=== PATIENT | male | born 1955 | race Caucasian/White ===

== ENCOUNTER 2024-11-06 05:09 | Inpatient (IN) | payer BC, MEDICARE, SELFPAY ==
[2024-11-06] VITALS (66 sets, daily range): BP systolic 115–184; BP diastolic 72–125; PULSE 60–104; RESP 12–49; TEMP 36.1–37.1; O2SAT 87–100; BMI 29.3
--- OUTSIDE RECORDS SUMMARY | 2024-11-06 05:12 | XMS_ITS | Clinical Summary ---
Author Organization [facility] Address [address] [place] [address] Care Team Providers Care Creative Designer Name Role Phone Vasyl Cai MD Primary Care Provider [phone] Source Comments You are receiving this document as you are listed as the primary care provider,follow-up provider, or the patient has been referred to you for consultation.This is in compliance with the Medicare and[facility] State [facility] Hospital[facility] EHR Incentive Program,which states Providers who transition their patient to another setting of careor provider of care or refers their patient to another provider of care shouldprovide summary care record for each transition of care or referral. [facility] Allerg[facility] Active Allergy Reactions Criticality Noted Date Comments Lisinopril Cough 10/15/2018 Medications aspirin 81 MG chewable tablet Chew and swallow 1 Tablet (81 mg) by mouth. 07/30/19 14 Active nitroglycerin (NITROSTAT) 0.[address] 1 Tablet (0.4 mg) under tongue. 07/30/19 14 Active mometasone (ELOCON) 0.1 % cream Apply topically daily. Active insulin pen needle (BD PEN NEEDLE CHLOE U/F) 32G X 4 MM Inject 1 Each subcutaneously daily. 100 Each 3 02/07/20 20 Active losartan (COZAAR) 50 MG tablet Take 1 Tablet by mouth daily. 90 Tablet 3 06/06/19 21 Active atorvastatin (LIPITOR) 40 MG tabletIndication s:Type 2 diabetes mellitus with diabetic neuropathy, without long-term current use of insulin (HRC),Essential hypertension (HRC),Dyslipidem ia (high LDL; low HDL) (HRC),Obesity, unspecified obesity severity, unspecified obesity type (HRC) take 1 tablet by mouth one time daily 90 Tablet 3 01/26/20 24 Active metFORMIN XR (GLUCOPHAGE XR) 500 MG 24 hour release tabletIndication s:Type 2 diabetes mellitus with diabetic neuropathy, without long-term current use of insulin (HRC),Essential hypertension (HRC),Dyslipidem ia (high LDL; low HDL) (HRC),Obesity, unspecified obesity severity, unspecified obesity type (HRC) take 2 tablets by mouth twice daily 360 Tablet 3 01/26/20 24 Active CONTOUR NEXT test stripsIndication s:Type 2 diabetes mellitus with diabetic neuropathy, without long-term current use of insulin (HRC),Essential hypertension (HRC),Dyslipidem ia (high LDL; low HDL) (HRC),Obesity, unspecified obesity severity, unspecified obesity type (HRC) Use 1 Each to test 4 times a day. 400 Strip 4 02/02/20 24 Active vitamin B-12 (AKA: CYANOCOBALAMIN) 1000 MCG tablet Take 1 Tablet (1,000 mcg) by mouth. Active gabapentin (NEURONTIN) 100 MG capsule TAKE TWO CAPSULES BY MOUTH DAILY AT BEDTIME NEEDED 180 Capsule 3 04/06/20 24 Active semaglutide (OZEMPIC, 2 MG/DOSE,) 8 MG/3ML SOPN injectionIndicat ions:Type 2 diabetes mellitus with diabetic neuropathy, without long-term current use of insulin (HRC),Essential hypertension (HRC),Dyslipidem ia (high LDL; low HDL) (HRC) INJECT 2MG SUBCUTANEOUSLY ONCE A WEEK. 9 mL 2 07/06/19 25 Active empagliflozin (JARDIANCE) 10 MG tabletIndication s:Type 2 diabetes mellitus with diabetic neuropathy, without long-term current use of insulin (HRC),Essential hypertension (HRC),Dyslipidem ia (high LDL; low HDL) (HRC) Take 1 Tablet (10 mg) by mouth daily. 90 Tablet 3 08/03/19 25 Active glipiZIDE (GLUCOTROL) 10 MG tabletIndication s:Type 2 diabetes mellitus with diabetic neuropathy, without long-term current use of insulin (HRC),Essential hypertension (HRC),Dyslipidem ia (high LDL; low HDL) (HRC) Take 2 tab in the AM and 2 tabs in the PM 360 Tablet 3 08/03/19 25 Active tirzepatide (MOUNJARO) 12.5 MG/0.5ML injection pen Inject 12.5 mg subcutaneously once a week. 6 mL 3 08/03/19 25 Active metoprolol succinate (TOPROL XL) 50 MG 24 hour release tabletIndication s:Type 2 diabetes mellitus with diabetic neuropathy, without long-term current use of insulin (HRC),Essential hypertension (HRC),Dyslipidem ia (high LDL; low HDL) (HRC),Obesity, unspecified obesity severity, unspecified obesity type (HRC) TAKE 1 TABLET BY MOUTH ONE TIME DAILY 90 Tablet 3 10/04/19 25 Active Active Problems Problem Noted Date Diagnosed Date Type 2 diabetes mellitus wit h diabetic neuropathy, unspecified 08/02/2024 Obesity, unspecified obesity severity, unspecified obesity type 04/10/2021 CAD (coronary artery disease) 04/13/2018 T2DM (type 2 diabetes mellitus) 04/13/2018 Essential hypertension 04/13/2018 Dyslipidemia (high LDL; low HDL) 04/13/2018 Tobacco abuse 07/29/2013 Encounters Date Type Department Care Team Description 10/01/2024 Refill [place] [address] Endocr[facility] [place] [address] Palma Toth MBBS Refill (metoprolol succinate (TOPROL XL) 50 MG 24 hour release tablet [Pharmacy Med Name: Metoprolol Succinate ER Oral Tablet Extended Release 24 Hour 50 MG]) from Last 3 Months Social History Tobacco Use Types Packs/Day Years Used Date Smoking Tobacco: Former Smokeless Tobacco: Never Alcohol Use Standard Drinks/Week Comments Not Currently 0 (1 standard drink = 0.6 oz pur e alcohol) Sex and Gender Information Value Date Recorded Sex Assigned at Not on file Legal Sex Male 4:10 AM CDT Gender Identity Not on file Sexual Orientation Not on file Last Filed Vital Signs Vital Sign Reading Time Taken Comments Blood Pressure 145/87 08/02/2024 3:12 PM CDT Pulse 84 08/02/2024 3:12 PM CDT Temperature 36.3 C (97.3 F) 02/05/2005 10:43 AM CDT Respiratory Rate 18 02/05/2005 10:4 3 AM CDT Oxygen Saturation 98% 02/05/2005 10: 43 AM CDT Inhaled Oxygen Concentration - - Weight 105.1 kg (231 lb 11.2 oz) 08/02/2024 3:12 PM CDT Height 181.6 cm (5' 11.5) 08/02/2024 3:12 PM CD T Body Mass Index 31.87 08/02/2024 3:12 PM CDT Plan of Treatment Upcoming Encounters Date Type Department Care Team (Late st Contact Info) Description 01/17/2025 9:15 AM CDT Appointment [facility] [address] [place] [address] Palma Toth MBBS [address] [place], [place] [address] Health Maintenance Due Date Last Done Comments Colon Cancer Screening Plan Due 1957 Diabetes: Eye Exam 1957 Diabetes: Foot Exam 1957 Hep C Screening (Preventive Services) 1955 PSA Screening Discussion 1957 Adult Preventive Visit 1975 Pneumococcal Vaccine 50+ Yrs (1 of 2 - PCV) 1976 DTaP/Tdap/Td Vaccine (2 - Tdap) 10/20/2017 10/21/2007 Abdominal Aortic Aneurysm (AAA) Screening 2022 COVID-19 Vaccine ( season) 2024 09/08/2020, 08/18/2020 Diabetes: HGBA1C 11/02/2024 08/02/2024, 02/2024, 07/28/2023, Additional history exists Influenza Vaccine (Season Ended) 2025 02/27/2020, 06/10/2016, 03/22/2015 Diabetes: Creatinine 08/02/2025 08/02/2024, 07/28/2023, 07/22/2022, Additional history exists Diabetes: Urine Microalbumin 08/02/202503/2025, 07/28/2023, 07/22/2022, Additional history exists Diabetes: Lipid Panel 08/02/2029 08/02/2024 , 07/28/2023, 07/22/2022, Additional history exists RSV Vaccine (1 - 1-dose 75+ series) 2032 Zoster/Shingles Vaccine Completed 04/27/2020, 02/23 HepA Vaccine Aged Out No longer eligi ble based on patient's age to complete this topic HepB Vaccine Aged Out No longer eligi ble based on patient's age to complete this topic Hib Vaccine Aged Out No longer eligi ble based on patient's age to complete this topic IPV (Polio) Vaccine Aged Out No longe r eligible based on patient's age to complete this topic MCV4 Vaccine Aged Out No longer eligi ble based on patient's age to complete this topic Meningococcal B Vaccine Aged Out No l onger eligible based on patient's age to complete this topic Procedures Procedure Name Priority Date/Time Associated Diagnosis Comments ALBUMIN/CREAT RATIO Routine 08/02/2024 3 :49 PM CDT Type 2 diabetes mellitus with diabetic neuropathy, without long-term current use of insulin (HRC) BASIC METABOLIC PANEL Routine 08/02/2024 3:35 PM CDT Type 2 diabetes mellitus with diabetic neuropathy, without long-term current use of insulin (HRC) LIPID PANEL & DIRECT LDL (IF NEEDED) Routine 08/02/2024 3:35 PM CDT Type 2 diabetes mellitus with diabetic neuropathy, without long-term current use of insulin (HRC) HGB A1C Routine 08/02/2024 3:35 PM CDT Type 2 diabetes mellitus with diabetic neuropathy, without long-term current use of insulin (HRC) from Last 3 Months or Most Recently Relevant to Health Maintenance Results * Albumin/Creatinine Ratio,Random Urine (08/02/2024 3:49 PM CDT) Albumin/Creati nine Ratio, Urine, Random 2 <30 mg/g 08/02/2024 5:03 PM CDT [facility] Albumin, Urine, Random 1.7 mg/L 08/02/2024 5:03 PM CDT [facility] Creatinine, Urine, Random 69 >20 mg/dL mg/dL 08/02/2024 5:03 PM T [facility] Urine Non-blood Collection / Unknown 08/02/2024 3:49 PM CDT 08/02/2024 3:49 PM CDT Palma Sauer Janey [facility] Final Res ult Performing Organization Address City/[facility]/ZIP Co de Phone Number [facility] [address] [place] [address] * (ABNORMAL) Lipid Panel and Direct LDL(If Needed) (08/02/2024 3:35 PM CDT) Cholesterol 106 0 - 199 mg/dL 08/02/2024 7:58 PM T [facility] Triglyceride 218(H) <=149 mg/dL 08/02/2024 7:58 PM [facility] HDL Cholesterol 34(L) >=40 mg/dL 7:58 PM [facility] LDL, Calculated 28 <130 mg/dL 7:58 PM [facility] Non HDL Chol, Calculated 72 <=159 mg/dL 08/02/2024 7:58 PM [facility] Cholesterol/HDL Ratio 3.1 <=5.0 08/02/2024 7:58 PM [facility] Hours Fasting 2.0 8 - 12 Hours 08/02/2024 7:58 PM [facility] Blood Venipuncture / Unknown 08/02/2024 3:35 PM CDT 08/02/2024 3:50 PM CDT Palma Sauer Janey [facility] Final Res ult Performing Organization Address City/[facility]/ZIP Co de Phone Number [facility] [address] [place] [address] * (ABNORMAL) Basic Metabolic Panel (08/02/2024 3:35 PM CDT) Sodium 140 136 - 145 mmol/L 08/02/2024 7:58 PM [facility] Potassium 3.9 3.5 - 5.1 mmol/L 08/02/2024 7:58 PM [facility] Chloride 108 98 - 109 mmol/L 08/02/2024 7:58 PM [facility] CO2 21 20 - 29 mmol/L 08/02/2024 7:58 PM [facility] Anion Gap 11 6 - 16 mmol/L 08/02/2024 7:58 PM [facility] Calcium 9.2 8.4 - 10.4 mg/dL 08/02/2024 7:58 PM [facility] BUN 18 7 - 26 mg/dL 08/02/2024 7:58 PM [facility] Creatinine 1.06 0.73 - 1.18 mg/dL 08/02/2024 7:58 PM [facility] Glucose 179(H) 70 - 100 mg/dL 08/02/2024 7:58 PM [facility] Comment:The given reference range is for the fasting state. Non-fasting reference range for glucose is 70 - 180 mg/dL. GFR, Estimated >60 >60 mL/min/1.7 3m2 08/02/2024 7:58 PM [facility] Hours Fasting 2.0 8 - 12 Hours 08/02/2024 7:58 PM [facility] Blood Venipuncture / Unknown 08/02/2024 3:35 PM CDT 08/02/2024 3:50 PM CDT us Palma [facility] Final Res ult [facility] [address] [place] [address], [facility] * (ABNORMAL) Hgb A1C (08/02/2024 3:35 PM CDT) Hemoglobin A1C (Rapid) 7.9(H) <=5.6 % 08/02/2024 4:11 PM T [facility] Estimated Average Glucose (Calc) 180 < 117 mg/dL 08/02/2024 4:11 PM [facility] Comment:Estimated average gl ucose (eAG) converts A1c into glucose units (mg/dL) and estimates average glucose over the past approximately 3 months. The eAG reference interval (<117 mg/dL) corresponds to an A1c of <5.7%. Blood Venipuncture / Unknown 08/02/2024 3:35 PM CDT 08/02/2024 3:50 PM CDT Narrative [facility] - 08/02/2024 4:11 PM CDT For patients not previously diagnosed with diabetes: 5.7-6.4%: Increased risk for diabetes 6.5% and greater: Diagnostic for diabetes For patients diagnosed with diabetes: <8.0%: Goal of therapy for ages 18-75 Clinicians may recommend a higher or lower goal for specific individuals. The test method used for this Hemoglobin A1c result can experience interference from elevated hemoglobin and other hemoglobin variants. In patients with results that do not correlate clinically, contact the lab for further direction. us Pal[facility]_1 Final Res ult [facility] [address] [place] [address], [facility] from Last 3 Months or Most Recently Relevant to Health Maintenance Insurance MEDICARE PART A [facility] [place] [facility] [place] [facility] [place] Care Teams Creative Designer Relationship Specialty Start Date End Date Vasyl Cai MD [address] [place], [place] [id number] PCP - General Family Practice 04/13/18
--- OUTSIDE RECORDS SUMMARY | 2024-11-06 05:12 | XMS_ITS | Encounter Summary ---
Author Organization [facility] Address [address] [place] [address] Care Team Providers Care Mfg Assoc Name Role Phone Vasyl Cai Primary Care Provider + [phone] Homar Stevens MD Unavailable Homar Stevens MD Unavailable [phone] Encounter Details Date Type Department Care Team (Late st Contact Info) Description 10/03/2024 Telephone [facility] [address] [place] [address] Pooja Kenney, RN Social History Tobacco Use Types Packs/Day Years Used Date Smoking Tobacco: Former Cigarettes Q uit: 2013 Smokeless Tobacco: Never Alcohol Use Standard Drinks/Week Comments Yes 0 (1 standard drink = 0.6 oz pur e alcohol) very little PHQ-2 Answer Date Recorded PHQ-2 Score 0 09/15/2023 Adolescent Education Answer Date Record ed Getting School Help Needed Not on file 02/13 Sex and Gender Information Value Date Recorded Sex Assigned at Not on file Legal Sex Male 11:16 AM CDT Gender Identity Not on file Sexual Orientation Not on file documented as of this encounter Plan of Treatment Not on file documented as of this encounter Visit Diagnoses Not on filedocumented in this encounter Care Teams Mfg Assoc Relationship Specialty Start Date End Date Vasyl Cai [address] [address] PCP - General Family Practice 07/31/14 Homar Stevens MD [address] [place] [address] Cardiovascular Disease 06/17/21 Homar Stevens MD [address] [place] [address] Assigned Heart and Vascular Provider 10/15/23 documented as of this encounter
--- OUTSIDE RECORDS SUMMARY | 2024-11-06 05:12 | XMS_ITS | Encounter Summary ---
Author Organization [facility] Address [address] [place] [address] Care Team Providers Care Spinner Open End Name Role Phone Vasyl Cai MD Primary Care Provider [phone] Reason for Visit * Reason Comments Refill metoprolol succinate (TOPROL XL) 50 MG 24 hour release tablet [Pharmacy Med Name: Metoprolol Succinate ER Oral Tablet Extended Release 24 Hour 50 MG] Encounter Details Date Type Department Care Team (Late st Contact Info) Description 10/01/2024 Refill [facility] [address] Endocrinology [address] [place] [address] Silvia Toth MBBS [address] [place] [address] Refill (metoprolol succinate (TOPROL XL) 50 MG 24 hour release tablet [Pharmacy Med Name: Metoprolol Succinate ER Oral Tablet Extended Release 24 Hour 50 MG]) Social History Tobacco Use Types Packs/Day Years [...] on file documented as of this encounter Nursing Notes * Brandy Barboza RN - 10/03/2024 9:00 AM CDT Renewed medication per medication refill standing order. Requested Prescriptions Signed Prescriptions Disp Refills metoprolol succinate (TOPROL XL) 50 MG 24 hour release tablet 90 Tablet 3 Sig: TAKE 1 TABLET BY MOUTH ONE TIME DAILY Authorizing Provider: SILVIA TOTH Ordering User: BRANDY BARBOZA * Lydia Wong - 10/01/2024 5:46 AM CDT metoprolol succinate (TOPROL XL) 50 MG 24 hour release tablet [Pharmacy Med Name: Metoprolol Succinate ER Oral Tablet Extended Release 24 Hour 50 MG] Medication started: 05/20/2019 Last ordered by SILVIA TOTH: 01/11/2024 (264 days ago) QTY: 90, Refills: 2, Sig: take 1 tablet by mouth one time daily (unchanged) -> Refill x 12 months, qty: 90, refills: 3 (until due for an office visit) Last qualifying visit: 08/02/2024 (in ENDOCRINOLOGY) Next scheduled visit: 01/17/2025 (in [facility]) [employer] Embedded Refills, Reference: [id number], 10/01/2024 5:46:55 AM CDT, Pool: PASCUAL PNREFSTEPHANY ([id number]) documented in this encounter Plan of Treatment Upcoming Encounters Date Type Department Care Team (Late st Contact Info) Description 01/17/2025 9:15 AM CDT Appointment [facility] [address] [place] [phone] Silvia Toth, MBBS [address] [place] [address] documented as of this encounter Visit Diagnoses Diagnosis Type 2 diabetes mellitus with diabetic neuropathy, without long-term current use of insulin (HRC) Essential hypertension (HRC) Unspecified essential hypertension Dyslipidemia (high LDL; low HDL) (HRC) Other and unspecified hyperlipidemia Obesity, unspecified obesity severity, unspecified obesity type (HRC) documented in this encounter Care Teams Spinner Open End Relationship Specialty Start Date End Date Vasyl Cai MD [address] [place] [address] PCP - General Family Practice 04/13/18 documented as of this encounter
--- OUTSIDE RECORDS SUMMARY | 2024-11-06 05:12 | XMS_ITS | Clinical Summary ---
Author Organization [email or web address] Address [address] [place] [address] Care Team Providers Care Wood Drilling Machine Operator Name Role Phone Pcp, No Primary Care Provider Unavailabl e Allergies No known active allergies Medications aspirin chewable 81 mg chewable tablet Take 1 tablet by mouth once daily. 0 07/29/2013 Active atorvastatin (LIPITOR) 40 mg tablet Take 1 tablet by mouth at bedtime. 30 tablet 3 07/29/2013 5:42 PM CRM DYNAMICS DEVELOPER 07/29/2013 Active clopidogrel (PLAVIX) 75 mg tablet Take 1 tablet by mouth every morning. Continue plavix for 1 year without interruption. 30 tablet 11 07/29/2013 5:42 PM CRM DYNAMICS DEVELOPER 07/29/2013 Active nitroglycerin (NITROSTAT) 0.[address] 1 tablet under the tongue every 5 minutes if needed for Chest Pain (For chest pain x 3 doses.). 25 tablet 3 07/29/2013 5:42 PM CRM DYNAMICS DEVELOPER 07/29/2013 Active nicotine 21 mg/24 hr (NICODERM; HABITROL) 21 mg/24 hr patch Apply 1 Patch on dry, clean, hairless skin once daily. 42 Patch 0 07/31/2013 Active lisinopril (PRINIVIL; ZESTRIL) 5 mg tablet Take 1 tablet by mouth once daily. 30 tablet 0 10/19/2013 Active metoprolol succinate SR (TOPROL XL) 50 mg Sustained-Relea se tablet Take 1 tablet by mouth once daily. 30 tablet 0 10/19/2013 Active Active Problems Problem Noted Date Diagnosed Date Acute [place] 07/29/2013 Tobacco abuse 07/29/2013 ASTIGMATISM REGULAR 09/17/2005 Presbyopia 09/17/2005 Myopia 09/17/2005 Headache(784.0) 03/20/2000 EXAMINATION, ROUTINE MEDICAL 09/20/1999 Immunizations Immunization Administration Dates Next Due Tdap 10/21/2007 Family History Medical History Relation Name Comments Genetic Other Father with HTN and CAD. No hx of prostate or colon cancer. 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 Not on file Not on file Not on file Obstetrics History Last Filed Vital Signs Vital Sign Reading Time Taken Comments Blood Pressure 128/75 07/31/2013 7:42 AM CDT Pulse 81 07/31/2013 7:42 AM CDT Temperature 36.9 C (98.4 F) 07/31/2013 7:42 AM CDT Respiratory Rate 16 07/31/2013 7:42 AM CDT Oxygen Saturation 98% 07/31/2013 7:42 AM CDT Inhaled Oxygen Concentration - - Weight 114 kg (251 lb 5.2 oz) 07/31/2013 5:18 AM CDT Height 182.9 cm (6') 07/29/2013 12:44 PM CRM DYNAMICS DEVELOPER Body Mass Index 34.09 07/29/2013 12:44 PM CRM DYNAMICS DEVELOPER Plan of Treatment Health Maintenance Due Date Last Done Comments Depression screening for age 12+ 1969 BMI (ht and wt on same day) for age 18+ 1975 Hepatitis C screening for ag e 18-79 1975 Colonoscopy through age 75 2002 Pneumococcal series for age 50+ (1 of 1 - PCV) 2007 Zoster (shingles) series for age 50+ (1 of 2) 2007 Tetanus booster 10/20/2017 10/21/2007 Lipids for age 45-75 07/30/2018 07/30/2013 COVID-19 vaccine series ( season) 2024 Influenza Vaccine (Season Ended) 2025 RSV vaccine for adults or (1 - 1-dose 75+ series) 2032 Tdap Completed 10/21/2007 Hepatitis B series for 19+ Aged Out N o longer eligible based on patient's age to complete this topic Procedures Procedure Name Priority Date/Time Associated Diagnosis Comments LIPID PANEL Early AM 07/30/2013 5:20 AM CRM DYNAMICS DEVELOPER from Last 3 Months or Most Recently Relevant to Health Maintenance Results * (ABNORMAL) LIPID PANEL (07/30/2013 5:20 AM CRM DYNAMICS DEVELOPER) CHOLESTEROL,TOTA L 152 100 - 199 mg/dL [facility] TRIGLYCERIDES 102 <150 mg/dL [facility] HDL CHOLESTEROL 29(L) >40 mg/dL [facility] CHOL/HDL RATIO 5.24(H) <4.50 [facility] NON-HDL CHOLESTEROL 123 Undefined mg/dL [facility] LDL CHOLESTEROL 103 <131 mg/dL [facility] PATIENT STATUS Fasting [facility] Blood specimen (specimen) BLOOD SPECIMEN / Unknown 07/30/2013 5:20 AM CRM DYNAMICS DEVELOPER 07/29/2013 10:01 PM CRM DYNAMICS DEVELOPER Shayla Colin NP CHEMISTRY Final R esult [facility] [place]NAL [address]IP [address] [place] [address] from Last 3 Months or Most Recently Relevant to Health Maintenance Insurance [employer] * Guarantor: MAURICIO PENN Account Type Relation to Patient Date of Phone Billing Address [facility] [place] [address] Advance Directives * Full Code (Latest Code Status on File) Date Activated Date Inactivated Comments 07/29/2013 1:21 PM 07/31/2013 1:06 PM Care Teams Wood Drilling Machine Operator Relationship Specialty Start Date End Date Pcp, No . PCP - General 10/21/07
--- OUTSIDE RECORDS SUMMARY | 2024-11-06 05:12 | XMS_ITS | Encounter Summary ---
Author Organization [facility] Address [facility] [place] [address] Care Team Providers Care Hospitality Intern Name Role Phone Vasyl Cai Primary Care Provider [phone] Homar Stevens MD Unavailable [phone] Homar Stevens MD Unavailable [phone] Reason for Visit * Reason Onset Date Comments Refill Request 10/03/2024 losartan Encounter Details Date Type Department Care Team (Late st Contact Info) Description 10/03/2024 Formerly [facility] Heart [facility] [id number] [place] [address] [address] [place] [address] Homar Stevens MD [address] [facility] [address] [place], [place] [address] Refill Request (losartan) Social History Tobacco Use Types Packs/Day Years Used Date Smoking Tobacco: Former Cigarettes Q uit: 2014 Smokeless Tobacco: Never Alcohol Use Standard Drinks/Week [...] on file documented as of this encounter Miscellaneous Notes * Telephone Encounter - Pooja Kenney, RN - 10/03/2024 10:52 AM CDT [facility] Cardiology Refill Guideline reviewed. Medication meets criteria for refill. documented in this encounter Plan of Treatment Not on file documented as of this encounter Visit Diagnoses Diagnosis Coronary artery disease involving kot[place] coronary artery of kotlik heart without angina pectoris Benign essential hypertension Essential hypertension, benign documented in this encounter Care Teams Hospitality Intern Relationship Specialty Start [place] [address] PCP - General Family Practice 07/31/14 Homar Stevens MD [address] [place] [address] Cardiovascular Disease 06/17/21 Homar Stevens MD [address] [place] [address] Assigned Heart and Vascular Provider 10/15/23 documented as of this encounter
--- OUTSIDE RECORDS SUMMARY | 2024-11-06 05:12 | XMS_ITS | Encounter Summary ---
Author Organization [facility] Address [address] [place] [address] Care Team Providers Care Director Of Financial Aid Name Role Phone None Primary Care Provider Unavailabl Vasyl Seay Primary Care Provider Tad Esquivel MD Unavailable Homar Stevens MD Unavailable [phone] Homar Stevens MD Unavailable [phone] Homar Stevens MD Unavailable [phone] Encounter Details Date Type Department Care Team (Late st Contact Info) Description 09/15/2013 Office Visit-[facility] [address] [address] Homar Stevens MD [address] [place], [place] [id number] [place], [place] [id number] Social History Tobacco Use Types Packs/Day Years Used Date Smoking Tobacco: Never Assessed Sex and Gender Information Value Date Recorded Sex Assigned at Not on file Legal Sex Male 11:16 AM CDT Gender Identity Not on file Sexual Orientation Not on file documented as of this encounter Progress Notes * Homar Stevens MD - 09/16/2013 4:46 PM CDT Progress Note Created by: Homar Stevens MD DATE: 09/15/2013 RODOLFO AMAYA DATE OF : 1955 AGE: [age] years old Referring Physician: VASYL CAI Referring Clinic: [facility] CURRENT DIAGNOSES 1. - CAD, 414.00 2. PTCA, V45.82 ALLERGIES NKDA MEDICATIONS (prior to changes made today) 1. Aspirin Low Dose 81 mg tablet,delayed release (DR/EC), 1 p.o. daily 2. atorvastatin 40 mg tablet, 1 p.o. daily 3. clopidogrel 75 mg tablet, 1 p.o. daily 4. lisinopril 5 mg tablet, 1 p.o. daily 5. metoprolol succinate 50 mg tablet extended release 24 hr, 1 p.o. daily 6. mometasone 0.1 % cream, Take as Directed 7. nicotine 21 mg/24 hr patch 24 hour, Take as Directed 8. Nitrostat 0.4 mg tablet, sublingual, 1 p.o. PRN as Directed CHIEF COMPLAINTS CAD IPL STEMI 07/29/2013. 3 x 15 mm zotarolimus eluting stent nondominant cx. LMCA, LAD no signifcant, dyslipidemia, HTN and smoking history HISTORY OF PRESENT ILLNESS Rodolfo Amaya, a 58-year-old man with coronary artery disease, hypertension, dyslipidemia, a previous smoking history and obesity, was seen today at your request for followup and recommendations regarding long-term management of coronary artery disease. On 07/29/13, Mr. Amaya presented to Dr. Cai's clinic with substernal chest discomfort, dyspneaand diaphoresis. An ECG was performed that was not diagnostic for STEMI at that time, but because of the patient's unstable presentation he was aggressively managed with medical therapy and sent urgently to [facility]. On arrival, the patient developed new EKG changes indicating acute inferoposterior lateral wall ST segment elevation CO. He underwent urgent diagnostic coronary angiography by Dr. Homar Koenig via the right femoral artery. The left main and LAD were angiographically normal. The dominant right coronary had a 40 to 50% midvessel narrowing. The circumflex was anondominant, totally occluded vessel. The circumflex occlusion was treated with implantation of a 3.5 x 15 mm length Zotarolimus-eluting stent. An excellent angiographic result was noted. The patient's troponin peaked at 2.66. A post- procedural echo showed a normal ejection fraction without identifiable regional wall motion abnormality. The patient was placed on appropriate medical therapy including aspirin, Clopidogrel, lisinopril, metoprolol and atorvastatin. Since his discharge, Mr. Amaya has been very carefully followed by Dr. Cai. The patient has undergone cardiac rehabilitation without limits. He is quite eager to return back to work. Close questioning reveals no history of chest, arm, neck, jaw or back discomfort with exertion. has been successful in helping the patient stop smoking cigarettes. The patient has been instructed about a low cholesterol diet, but is focusing primarily on cessation of tobacco use. PAST MEDICAL HISTORY: 1. Hypertension. 2. Moderate obesity. 3. Dyslipidemia. 4. Smoking history. 5. Recent inferoposterior infarction - normal ejection fraction after intervention. A very small troponin rise. PHYSICAL EXAMINATION: Exam today demonstrates a very pleasant, cooperative and friendly [id number] who is overweight. His blood pressure was 118/78. His heart rate is 84. His height is 70. His weight is 255,5. His BMI is 35. His lungs are clear to percussion and auscultation. There is normal S1 with a normal S2. There is no S3. There is no S4. There is no rub or click. His pulses are both symmetrical. There is no edema. LABORATORY STUDIES: I have carefully reviewed the reports from [facility]. The results of the patient's angiogram are in the above text. His echo showed an ejection fraction of 55 to 60% with mild left ventricular hypertrophy, but no identifiable regional wall motion abnormalities. PAST HISTORY Past Medical Illnesses: smokes cigarettes, hypertension, cluster headaches Past Cardiac Illnesses: CO Cardiac/Vasc Procedures-Invasive: cardiac cath (left) Jul 2013 Cardiology Procedures-NonInvasive: echocardiogram Jul 2013 Cardiac Cath Results: July 2013- TOVA to circumflex, mid RCA with 40-50% nonobstructive lesion PMHx Echo Results: July 2013- normal LVSF, trace tricuspid regurgitation, trivial pericardial effusion Left Ventricular Ejection Fraction: EF<GT>55% by Echo -July 2013 EF<GT>55% by Echo -July 2013 FAMILY HISTORY: CARDIAC RISK FACTORS Tobacco Abuse: used to smoke, but quit; Family History of Heart Disease: negative; Hyperlipidemia: positive, controlled; Hypertension: positive, well controlled; Diabetes Mellitus: negative; Prior History of Heart Disease: positive; Obesity:positive, BMI<GT>30 (Obesity); Sedentary Life Style:positive SOCIAL HISTORY Alcohol Use - drinks occasionally; Smoking - used to smoke but quit and 07/29/13; Diet - regular dietand caffeine use-1-2 per day; Lifestyle - , children and drives car; Exercise - participates in cardiac rehab phase II; Seat Belt Use - always; 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 EYES no blurred vision, eye pain, or discharge., wears eye glasses/contact lenses EARS, NOSE, THROAT, MOUTH denies any hearing loss, epistaxis, hoarseness or difficulty speaking. RESPIRATORY denies dyspnea, cough, wheezing or hemoptysis. CARDIOVASCULAR negative for palpitations, chest pain, orthopnea, PND, peripheral edema, syncope or claudication. ABDOMINAL denies ulcer disease, hematochezia or melena. MUSCULOSKELETAL lower back discomfort and legs were stiff - this past weekend NEUROLOGICAL denies any history of recurrent strokes, headaches, TIA, or seizure disorder. PSYCHIATRIC change in mood, getting better ENDOCRINE denies any history of thyroid disease or diabetes mellitus. HEMATOLOGICAL/IMMUNOLOGIC denies any food allergies, seasonal allergies, bleeding disorders. PHYSICAL EXAMINATION VITAL SIGNS: Blood Pressure: 118/78Sitting, Left arm, large cuff Pulse- 84.00/min. Weight- 255.50 lbs. Height- 71.00 BMI Measurement: 35 CONSTITUTIONAL cooperative, alert and oriented,well developed, well nourished, in no acute distress. SKIN warm and dry to touch, no apparent skin lesions, or masses noted. HEAD normocephalic, atraumatic EYES Pupils equal and round, conjunctivae and lids unremarkable, sclera white, no xanthalasma ENT no pallor or cyanosis, dentition good NECK carotid pulses are full and equal bilaterally, JVP normal, no carotid bruit, no thyromegaly CHEST normal symmetry, no tenderness to palpation, normal respiratory excursion, no intercostal retraction, no use of accessory muscles, clear to auscultation and percussion. CARDIAC regular rhythm, S1 normal, S2 normal, No S3 or S4, Apical impulse not displaced, no murmurs, gallops or rubs detected. ABDOMEN abdomen soft, bowel sounds normoactive, no masses, no hepatosplenomegaly, non- tender, no bruits, moderately obese PERIPHERAL PULSES pulses full and equal in all extremities, no bruits auscultated. EXTREMITIES & BACK no deformities, clubbing, cyanosis, erythema or edema observed. There are no spinal abnormalities noted. Normal muscle strength and tone. NEUROLOGICAL no gross motor deficits noted, affect appropriate, oriented to time, person and place. MEDICATIONS UPDATED/STARTED TODAY: Aspirin Low Dose 81 mg tablet,delayed release (DR/EC), 1 p.o. daily, #0 (Zero) atorvastatin 40 mg tablet, 1 p.o. daily, #0 (Zero) clopidogrel 75 mg tablet, 1 p.o. daily, #0 (Zero) lisinopril 5 mg tablet, 1 p.o. daily, #0 (Zero) metoprolol succinate 50 mg tablet extended release 24 hr, 1 p.o. daily, #0 (Zero) mometasone 0.1 % cream, Take as Directed, #0 (Zero) nicotine 21 mg/24 hr patch 24 hour, Take as Directed, #0 (Zero) Nitrostat 0.4 mg tablet, sublingual, 1 p.o. PRN as Directed, #0 (Zero) IMPRESSIONS/PLAN ASSESSMENT: Mr. Amaya is asymptomatic about two months status post small inferoposterior lateral wall myocardial infarction. The patient has a normal ejection fraction and no other significant narrowing. He is free of symptoms. At this point, I believe the patient can return back to full-time work without limitations. I am uncertain whether the DOT would require further testing before returning back to work, but I will certainly be happy to comply with any recommendations that the patient's employers may have. I have asked Rodolfo to please contact the HR service at his work to see whether any further testing would be required. I have given the patient a return to work slip beginning 09/28/13. I have encouraged the patient to remain abstinent from all tobacco use. I have advised a Mediterranean style diet and reviewed its features. I told the patient that he could go to the [employer] web site forfurther details. I have advised a moderate exercise program consisting of about 30 to 40 minutes of aerobic exercisedaily. The patient plans to continue in cardiac rehabilitation. I would continue the patient's Clopidogrel for about one year after his heart attack and then stop.The patient should remain on aspirin, statin therapy and blood pressure medications to maintain a systolic pressure less than 140 long-term. RECOMMENDATIONS: 1. Continue present excellent medical therapy. 2. Continue Clopidogrel through July of 2013. 3. Mediterranean style diet. 4. Exercise program. 5. Continued abstinence from tobacco use. 6. I have given the patient permission to return back to full-time work without restrictions on 09/28/13. Obviously, if the DOT requests more testing, we would be happy to arrange that for the patient. I have asked him to contact me in that regard. 7. Follow up within about one year. We greatly appreciate the opportunity to be involved in the care of this most pleasant man. TODAYS ORDERS 1. Return Visit 1 year Homar Stevens MD documented in this encounter Plan of Treatment Not on file documented as of this encounter Visit Diagnoses Not on filedocumented in this encounter Care Teams Director Of Financial Aid Relationship Specialty Start Date End Date None PCP - General 08/03/13 07/30/14 Vasyl Cai [address] [address] PCP - General Family Practice 07/31/14 Tad Esquivel MD [address] [place] [id number] Assigned Heart and Vascular Provider 03/16/20 07/13/21 Homar Stevens MD [address] [place] [id number] MD Cardiovascular Disease 06/17/21 Homar Stevens MD [address] [place] [id number] Assigned Heart and Vascular Provider 07/14/21 08/06/23 Homar Stevens MD [address] [place] [id number] Assigned Heart and Vascular Provider 10/15/23 documented as of this encounter
--- OUTSIDE RECORDS SUMMARY | 2024-11-06 05:12 | XMS_ITS | Clinical Summary ---
Author Organization [facility] Address [address] [place] [address] Care Team Providers Care Mold Filler And Drainer Name Role Phone Vasyl Cai Primary Care Provider [phone] Homar Stevens MD Unavailable Homar Stevens MD Unavailable Allergies Active Allergy Reactions Criticality Noted Date Comments Lisinopril Cough 06/27/2015 Dry tickle cough Medications aspirin 81 MG tablet Take 81 mg by mouth daily Active metoprolol (TOPROL-XL) 50 MG 24 hr tablet Take 50 mg by mouth daily Active atorvastatin (LIPITOR) 40 MG tablet Take 40 mg by mouth daily Active metFORMIN (GLUCOPHAGE) 500 MG tablet Take 2,000 mg by mouth daily (with dinner) Active glipiZIDE (GLUCOTROL) 10 MG tablet Take 10 mg by mouth 2 times daily (before meals) Active gabapentin (NEURONTIN) 100 MG capsule Take 100 mg by mouth 2 times daily Active OZEMPIC, 1 MG/DOSE, 4 MG/3ML SOPN Inject 1 mg subcutaneously once a week. 06/30/19 22 Active JARDIANCE 10 MG TABS tablet Take 10 mg by mouth daily 11/05/19 21 Active cyanocobalamin (VITAMIN B-12) 1000 MCG tablet Take 1,000 mcg by mouth daily Active nitroGLYcerin (NITROSTAT) 0.4 MG sublingual tabletIndication s:Coronary artery disease involving [place] coronary artery of [place] heart without angina pectoris,Benign essential hypertension Place 1 tablet (0.4 mg) under the tongue every 5 minutes as needed for chest pain 15 tablet 3 09/15/19 24 Active losartan (COZAAR) 25 MG tabletIndication s:Coronary artery disease involving [place] coronary artery of [place] heart without angina pectoris,Benign essential hypertension Take 2 tablets (50 mg) by mouth daily (with breakfast) AND 1 tablet (25 mg) at bedtime. Appointment required for further refills. 270 tablet 10/04/19 25 Active Active Problems Problem Noted Date Diagnosed Date STEMI (ST elevation myocardial infarction) 07/23 CAD (coronary artery disease) Overview (07/21/2014): TOVA to left circ 07/29/13 @[facility] Dyslipidemia HTN (hypertension) Encounters Date Type Department Care Team Description 10/03/2024 Refill [facility] [address] [facility] [address] [place] [address] Homar Stevens MD Refill Request (losartan) 10/03/[address] [facility] [address] [place] [address] [address] [place] [address] Pooja Kenney, RN from Last 3 Months Family History Medical History Relation Comments No Known Problems Brother 1 Accidental No Known Problems Brother 2 Cancer Father leukemia Diabetes Mother No Known Problems Sister 1 Hernia Sister 2 Ovarian Cancer Sister 2 Relation Status Comments Brother 1 Brother 2 Alive Father Mother Sister 1 Alive Sister 2 Alive Social History Tobacco Use Types Packs/Day Years [...] Sign Reading Time Taken Comments Blood Pressure 132/82 09/15/2023 8:13 AM CDT Pulse 82 09/15/2023 8:13 AM CDT Temperature - - Respiratory Rate - - Oxygen Saturation 96% 09/15/2023 8:13 AM CDT Inhaled Oxygen Concentration - - Weight 106.1 kg (234 lb) 09/15/2023 8:13 AM CDT Height 180.3 cm (5' 11) 09/15/2023 8:13 AM CDT Body Mass Index 32.64 09/15/2023 8:13 AM CDT Plan of Treatment Health Maintenance Due Date Last Done Comments ADVANCE CARE PLANNING 1955 ANNUAL REVIEW OF HM ORDERS 1955 CT COLONOGRAPHY 1955 FIT 1955 FLEX SIG 1955 sDNA (Cologuard) 1955 COLONOSCOPY 1967 COLORECTAL CANCER SCREENING 1967 HEPATITIS C SCREENING 1975 PNEUMOCOCCAL VACCINE 50+ YEARS (1 of 2 - PCV) 1976 LUNG CANCER SCREENING 2007 RSV VACCINE (1 - Risk 60-74 years 1-dose series) 2017 DTAP/TDAP/TD VACCINE (2 - Td or Tdap) 10/20/2017 10/21/2007 BMP 11/04/2017 11/04/2016 DIABETES SCREENING 02/06/2020 02/05/2017, 11/04/2016 FALL RISK ASSESSMENT 2022 MEDICARE ANNUAL WELLNESS VISIT 2022 LIPID 07/09/2022 07/09/2021 COVID-19 VACCINE (3 - 2023-2 5 season) 2024 09/08/2020, 08/18/2020 PHQ-2 (once per calendar year) 2024 09/15/2023 INFLUENZA VACCINE (Season Ended) 2025 02/27/2020, 06/10/2016, 03/22/2015 ZOSTER VACCINE Completed 04/27/2020, 02/24/2020 HPV VACCINE Aged Out No longer eligi ble based on patient's age to complete this topic MENINGITIS VACCINE Aged Out No longer eligible based on patient's age to complete this topic Procedures Procedure Name Priority Date/Time Associated Diagnosis Comments LIPID PROFILE Routine 07/09/2021 7:32 AM [employer] Coronary artery disease involving [place] coronary artery of [place] heart without angina pectoris HEMOGLOBIN A1C Routine 02/05/2017 3:05 PM CDT BASIC METABOLIC PANEL Routine 11/04/2016 4:40 PM CDT from Last 3 Months or Most Recently Relevant to Health Maintenance Results * (ABNORMAL) Lipid Profile (07/09/2021 7:32 AM [employer]) Cholesterol 96 <200 mg/dL 07/09/2021 8:38 AM [employer] [facility] Triglycerides 129 <150 mg/dL 07/09/2021 8:38 AM [employer] [facility] Direct Measure HDL 37(L) >=40 mg/dL 2021 8:38 AM [employer] [facility] LDL Cholesterol Calculated 33 <=100 mg/dL 07/09/2021 8:38 AM [employer] [facility] Non HDL Cholesterol 59 <130 mg/dL 07/09/2021 8:38 AM [employer] [facility] Patient Fasting > 8hrs? Yes 07/09/2021 8:38 AM [employer] [facility] Blood STRUCTURE OF LEFT UPPER LIMB / Unknown Venipuncture / Unknown 07/09/2021 7:32 AM [employer] 07/09/2021 7:34 AM [employer] Narrative [facility] - 07/09/2021 8:38 AM [employer] Cholesterol Desirable: <200 mg/dL Triglycerides Normal: Less than 150 mg/dL Borderline High: 150-199 mg/dL High: 200-499 mg/dL Very High: Greater than or equal to 500 mg/dL Direct Measure HDL Female: Greater than or equal to 50 mg/dL Male: Greater than or equal to 40 mg/dL LDL Cholesterol Desirable: <100mg/dL Above Desirable: 100-129 mg/dL Borderline High: 130-159 mg/dL High: 160-189 mg/dL Very High: >= 190 mg/dL Non HDL Cholesterol Desirable: 130 mg/dL Above Desirable: 130-159 mg/dL Borderline High: 160-189 mg/dL High: 190-219 mg/dL Very High: Greater than or equal to 220 mg/dL us Tad Esquivel MD LAB - BLOOD ORDERABLES Final Res ult [facility] [address] Lab (1st floor, no room number) [place] [address], [facility] [phone] * (ABNORMAL) Hemoglobin A1c (02/05/2017 3:05 PM CDT) Hemoglobin A1C 9.1(A) 0 - 5.6 % Blood specimen (specimen) 02/05/2017 3:05 PM CDT us Patient Reported LAB - BLOOD ORDERABLES Final Re sult * (ABNORMAL) Basic metabolic panel (11/04/2016 4:40 PM CDT) Sodium 139 138 - 146 mmol/L Potassium 3.9 3.5 - 4.9 mmol/L Chloride 103 98 - 109 mmol/L Carbon Dioxide mmol/L Anion Gap mmol/L Glucose 205(A) 60 - 115 mg/dL Urea Nitrogen 24 8 - 26 mg/dL Creatinine 1.0 0.6 - 1.3 mg/dL Calcium mg/dL GFR Estimate ml/min/1.7 3m2 GFR Estimate If Black ml/min/1.7 3m2 Blood specimen (specimen) 11/04/2016 4:40 PM CDT Patient Reported LAB - BLOOD ORDERABLES Final Re sult from Last 3 Months or Most Recently Relevant to Health Maintenance Insurance BCBS OUT OF STATE BC OUT OF STATE Care Teams Mold Filler And Drainer Relationship Specialty Start Date End Date Vasyl Cai [address] [address] PCP - General Family Practice 07/31/14 Homar Stevens MD [address] [place] [id number] Cardiovascular Disease 06/17/21 Homar Stevens MD [address] [place] [id number] Assigned Heart and Vascular Provider 10/15/23
--- NOTE | 2024-11-06 05:27 | ED.GENADULT ---
HPI - General Adult General Chief complaint: Abdominal Pain Stated complaint: chest pain Time Seen by Provider: 11/06/24 05:27 History of Present Illness HPI narrative: around 0100 awoke with a burning abd. pain across his entire stomach and feeling lightheaded and nausea, reports similar pain in 2013 when he had a heart attack requiring stents, was sent to [facility] for his heart attack. denies pain in chest, tried and antacid w/o relief. patient was very concerned about the pain because it felt so similar to his heart attack symptoms he had in the past 69-year-old man presenting to the emergency department with concern of a potential heart problem. Woke about 4 hours ago with some nausea and pain across most of the stomach. Was feeling lightheaded as well. These are similar symptoms with prior [place] and so ultimately became concerned and thought he should come to the emergency department to be evaluated. He does continue on a daily low-dose aspirin. He did try an antacid as well as tried to have a bowel movement but he did not feel he do have a bowel movement. Did have a few sips of 7 up hoping to help the stomach early in the morning. No sense of palpitations. Not actually with chest pain. He says the feeling of getting sick was not like he might experience typically with heartburn. Much improved now. Has been having some diarrhea lately. Reviewing records past medical shown coronary artery disease with lateral wall [place] in 2013. Drug-eluting stent in the circumflex. Also with history of diabetes hypertension Related Data Home Medications ?Medication ?Instructions ?Recorded ?Confirmed atorvastatin 40 mg tablet 40 mg PO DAILY 11/06/24 11/06/24 empagliflozin 10 mg tablet 10 mg PO DAILY 11/06/24 11/06/24 (Jardiance) gabapentin 100 mg capsule 200 mg PO HS PRN 11/06/24 11/06/24 glipizide 10 mg tablet 20 mg PO BID 11/06/24 11/06/24 losartan 25 mg tablet 25 - 50 mg PO BID 11/06/24 11/06/24 metformin 500 mg tablet,extended 1,000 mg PO BIDWM 11/06/24 11/06/24 release 24 hr metoprolol succinate 50 mg 50 mg PO DAILY 11/06/24 11/06/24 tablet,extended release 24 hr tirzepatide 12.5 mg/0.5 mL 12.5 mg subcut Q7D 11/06/24 11/06/24 subcutaneous pen injector (Mounjaro) Allergies Allergy/AdvReac Type Severity Reaction Status Date / Time lisinopril Allergy Cough Verified 11/06/24 09:08 Review of Systems Status of ROS: Reports: 6 or more systems reviewed and unremarkable except as noted in History and below PFSH PFS Social History Smoking Status: Former smoker How often do you have a drink containing alcohol: never AUDIT-C Alcohol total score: 0 Non-prescribed substance use: denies use Exam Narrative: Exam Narrative: Pleasant. NAD. Breathing easily. Skin is warm and dry. Well perfused. No extremity edema. Heart in regular rate and rhythm. Abdomen is overweight soft with some mild tenderness to palpation deep in the right lower abdomen. No peritoneal signs. I palpate a soft umbilical hernia. Lungs are clear. Const: Vital Signs, click to edit/add: Vital Signs - 24 hr 11/06/24 05:17 11/06/24 05:25 11/06/24 05:27 Temperature 97.6 F Pulse Rate 85 87 Pulse Rate [Pulse Oximeter] 82 Respiratory Rate 18 16 16 Blood Pressure 170/95 H Blood Pressure [Ri ght Upper Arm] 184/109 H Pulse Oximetry 96 96 99 Oxygen Delivery Me thod Room Air 11/06/24 05:30 11/06/24 05:41 11/06/24 05:43 Temperature Pulse Rate 83 Pulse Rate [Pulse Oximeter] Respiratory Rate 19 14 Blood Pressure 142/82 H Blood Pressure [Ri ght Upper Arm] Pulse Oximetry 100 95 Oxygen Delivery Me thod 11/06/24 05:45 11/06/24 06:00 11/06/24 06:01 Temperature Pulse Rate 78 80 83 Pulse Rate [Pulse Oximeter] Respiratory Rate 18 16 16 Blood Pressure 157/95 H Blood Pressure [Ri ght Upper Arm] Pulse Oximetry 99 98 100 Oxygen Delivery Me thod 11/06/24 06:15 11/06/24 06:16 11/06/24 06:22 Temperature Pulse Rate 82 64 Pulse Rate [Pulse Oximeter] Respiratory Rate 18 21 13 Blood Pressure 129/118 H 172/85 H Blood Pressure [Ri ght Upper Arm] Pulse Oximetry 100 94 97 Oxygen Delivery Me thod 11/06/24 06:42 11/06/24 06:45 11/06/24 07:00 Temperature Pulse Rate 69 75 Pulse Rate [Pulse Oximeter] Respiratory Rate 12 Blood Pressure 160/99 H Blood Pressure [Ri ght Upper Arm] Pulse Oximetry 98 92 95 Oxygen Delivery Me thod 11/06/24 07:02 11/06/24 07:15 11/06/24 07:21 Temperature Pulse Rate 87 81 Pulse Rate [Pulse Oximeter] Respiratory Rate 14 24 Blood Pressure 167/77 H Blood Pressure [Ri ght Upper Arm] Pulse Oximetry 95 97 96 Oxygen Delivery Me thod 11/06/24 07:30 11/06/24 07:42 11/06/24 07:45 Temperature Pulse Rate 81 79 78 Pulse Rate [Pulse Oximeter] Respiratory Rate 19 13 14 Blood Pressure 154/85 H Blood Pressure [Ri ght Upper Arm] Pulse Oximetry 98 95 98 Oxygen Delivery Me thod 11/06/24 08:00 11/06/24 08:02 11/06/24 08:15 Temperature Pulse Rate 60 79 88 Pulse Rate [Pulse Oximeter] Respiratory Rate 20 16 14 Blood Pressure 153/86 H Blood Pressure [Ri ght Upper Arm] Pulse Oximetry 98 94 90 Oxygen Delivery Me thod 11/06/24 08:24 11/06/24 08:30 11/06/24 08:42 Temperature Pulse Rate 95 87 Pulse Rate [Pulse Oximeter] Respiratory Rate 20 15 16 Blood Pressure 152/97 H 138/84 Blood Pressure [Ri ght Upper Arm] Pulse Oximetry 97 97 Oxygen Delivery Me thod 11/06/24 08:45 11/06/24 09:05 11/06/24 09:15 Temperature Pulse Rate 87 88 86 Pulse Rate [Pulse Oximeter] Respiratory Rate 18 Blood Pressure 164/111 H Blood Pressure [Ri ght Upper Arm] Pulse Oximetry 93 94 98 Oxygen Delivery Me thod Documenting provider has reviewed patient's vital signs: yes Course Vital Signs Vital signs: Initial Vital Signs Temperature 97.6 F 11/06/24 05:17 Temperature Source Temporal Artery Scan 11/06/24 05:17 Pulse Rate 82 11/06/24 05:17 Respiratory Rate 18 11/06/24 05:17 Blood Pressure 184/109 H 11/06/24 05:17 Blood Pressure Mean 134 H 11/06/24 05:17 Blood Pressure Position Semi-Fowlers 11/06/24 05:17 Pulse Oximetry 96 11/06/24 05:17 Oxygen Delivery Method Room Air 11/06/24 05:17 Vital Signs Temperature 97.6 F 11/06/24 05:17 Pulse Rate 82 11/06/24 05:17 Respiratory Rate 18 11/06/24 05:17 Blood Pressure 184/109 H 11/06/24 05:17 Pulse Oximetry 96 11/06/24 05:17 Oxygen Delivery Method Room Air 11/06/24 05:17 Temperature 97.6 F 11/06/24 05:17 Pulse Rate 86 11/06/24 09:15 Respiratory Rate 18 11/06/24 09:15 Blood Pressure 164/111 H 11/06/24 09:05 Pulse Oximetry 98 11/06/24 09:15 Oxygen Delivery Method Room Air 11/06/24 05:17 Medications Administered Medications: Discontinued Medications Generic Name Dose Route Start Last Admin Trade Name Freq PRN Reason Stop Dose Admin Sodium Chloride 500 mls @ 1,000 mls/hr 11/06/24 08:13 11/06/24 09:35 0.9 % Sodium Chloride 500 Ml IV 11/06/24 08:42 Infused .Q30M ONE Infusion Medical Decision Making MDM Narrative Medical decision making narrative: Mild abdominal findings. Not sure what to make of this. Certainly concerning that his symptoms are consistent with prior [place]. Would work this up from a cardiac standpoint with that in mind. Initial EKG independently reviewed by me looks to show a PVC complicating interpretation. Rate of 90 in sinus rhythm otherwise. I did ask for repeat EKG. This shows normal sinus rhythm at a rate of 80. Do not appreciate any ischemic changes here. Labs are unremarkable other than a hemoglobin of 20.2. No history noted of polycythemia vera. This hemoglobin is certainly elevated from 2018. Normal white count. Normal troponin Did have escalation in this nausea like symptom which then settled again. Remains with some mild deeper abdominal ache. Repeat troponin and EKG independently reviewed by me are unchanged. On repeat abdominal exam however I think that he does have more right lower quadrant tenderness. Still without peritoneal signs. Still does not feel like he needs anything for treatment and fact he is proposing discharge. Perhaps this is representing diverticulitis or evolving appendicitis. Will be sending through CT scanner at this point. Mr. Kaye is in agreement to proceed. IV contrasted CT of abdomen and pelvis independently reviewed by me does show some inflammatory change with possibly of fluid layer in the area where I might expect the appendix to be. Anticipate appendicitis. Radiology over-read below INDICATION: Right lower quadrant pain, lower abdominal pain. COMPARISON: None. TECHNIQUE: CT of the abdomen and pelvis with intravenous contrast. Multiplanar axial, coronal, and sagittal reformats were reconstructed. Contrast: 105 mL Isovue 370. FINDINGS: Lung bases: Mild basilar atelectasis. Liver: Suspect some degree of hepatic steatosis. There is a well-circumscribed unilocular 1.5 centimeter cyst in segment V. no worrisome liver lesions. Patent hepatic vasculature. Gallbladder and bile ducts: No gallbladder wall thickening or adjacent inflammation. Minimal layering gallstones or hyperdense sludge. No bile duct dilation. Pancreas: Normal. Spleen: Normal. Adrenal glands: Normal. Kidneys: Normal parenchyma. No cyst or solid mass. No calculi. No urinary tract dilation. Urinary bladder: Normal. Pelvis: No cyst or mass. Vessels: Atherosclerosis. Widely patent mesenteric arteries and veins. Bowel: Focal bowel wall thickening and adjacent inflammation at the base of the appendix. At the base of the appendix/cecum there is a 1.0 x 1.4 centimeter hyperdensity. This may be a faintly calcified appendicolith that are hyperenhancing lesion such as a carcinoid is difficult to exclude completely. The distal appendix is fluid-filled with some mild wall thickening proximally but the tip is normal. The maximum appendiceal diameter is about 9 millimeters. No other inflamed bowel. Scattered colonic diverticuli without diverticulitis. Moderate stool burden. Lymph nodes: No adenopathy. Peritoneum: No ascites. Abdominal wall: Fat containing right inguinal hernia. Bones: No fractures. No focal worrisome bone lesions. IMPRESSION: 1. Acute appendicitis. There is a 1.0 x 1.4 centimeter hyperdense abnormality at the origin of the appendix from the cecum. Could be a faintly calcified appendicolith but a hyperenhancing mass also needs to be considered. 2. No perforation or abscess. 3. No adenopathy. 4. No worrisome liver lesions. Please note that all CT scans at this facility use dose modulation, iterative reconstruction, and/or weight-based dosing when appropriate to reduce radiation dose to as low as reasonably achievable. Dictated by Lorie Serna MD @ 11/06/2024 9:16:06 AM Discussed findings in CT imaging with Mr. Kaye and his son and then with our general surgeon on-call. Pending conversation with hospitalist anticipating admission. Would anticipate likely going to the OR this early afternoon. Likely handing off change of shift here. Chest x-ray is pending Medical Records Medical records reviewed: Yes I reviewed the patient's medical records Lab Data Lab results reviewed: Yes I reviewed the patient's lab results Labs: Lab Results 11/06/24 11/06/24 11/06/24 Range/Units 05:20 05:38 07:20 WBC 10.26 (4.50-11.00) K/uL RBC 4.98 (4.30-5.90) m/uL Hgb 20.2 H (13.5-17.5) gm/dL Hct 45.9 (37.0-53.0) % MCV 92 (80-100) fL MCH 41 H (26-34) pg MCHC 44 H (32-36) gm/dL RDW Coeff of Geo 13.5 (11.5-15.5) % Plt Count 236 (140-440) K/uL Neut % (Auto) 79.4 H (42.0-72.0) % Lymph % (Auto) 11.7 L (20-44) % [place] % (Auto) 7.1 (0.0-11.0) % Eos % (Auto) 1.2 (0.0-7.0) % Baso % (Auto) 0.3 (0.0-3.0) % Neut # (Auto) 8.10 H (1.7-7.0) K/uL Lymph # (Auto) 1.20 (0.90-2.90) K/uL [place] # (Auto) 0.70 (0.00-0.90) K/UL Eos # (Auto) 0.12 (0.00-0.50) K/uL Baso # (Auto) 0.03 (0.00-0.30) K/uL Abs Immat Gran (auto) 0.03 (0.00-0.30) K/uL Imm/Tot Granulo (auto) 0.3 % Sodium 141 (135-149) mmol/L Potassium 4.1 (3.6-5.1) mmol/L Chloride 107 (96-114) mmol/L Carbon Dioxide 21 (20-32) mmol/L Anion Gap 13 (7-15) mEq/L BUN 20 (7-30) mg/dL Creatinine 1.0 (0.5-1.5) mg/dL Estimated Creat Clear 78.68 Estimated GFR 82 ml/min Glucose 158 H (60-115) mg/dL Calcium 9.3 (8.4-10.6) mg/dL Total Bilirubin 0.8 (0.1-1.5) mg/dL Direct Bilirubin 0.2 (0.0-0.5) mg/dL AST 34 (12-35) U/L ALT 24 (4-50) U/L Alkaline Phosphatase 70 (40-150) U/L Troponin I < 0.01 (0.01-0.04) ng/mL NT-Pro-B Natriuret Pep 93 (See Note) pg/mL Total Protein 6.9 (6.0-8.3) g/dL Albumin 4.5 (3.3-5.0) g/dL POC Troponin I 0.00 L 0.01 (0.01-0.04) ng/ml Discharge Plan Discharge Clinical Impression: Acute appendicitis, Abdominal pain Patient Disposition: XFER to OR Condition: Stable Follow Up/Referrals: Vasyl Cai MD [Referring, Family Practice]
[2024-11-06 05:59] LABS: Basophils Absolute Auto 0.03 K/uL (0.00-0.30); Basophils Percent Auto 0.3 % (0.0-3.0); Eosinophils Absolute Auto 0.12 K/uL (0.00-0.50); Eosinophils Percent Auto 1.2 % (0.0-7.0); Hematocrit 45.9 % (37.0-53.0); Hemoglobin* 20.2 gm/dL (13.5-17.5); Immature Granulocytes Abs Auto 0.03 K/uL (0.00-0.30); Immature Granulocytes Pct Auto 0.3 %; Lymphocytes Percent Auto 11.7 % (20-44); Mean Corpuscular HGB Conc 44 gm/dL (32-36); Mean Corpuscular Hemoglobin 41 pg (26-34); Mean Corpuscular Volume 92 fL (80-100); Monocytes Percent Auto 7.1 % (0.0-11.0); Neutrophils Percent Auto 79.4 % (42.0-72.0); Platelet Count* 236 K/uL (140-440); RDW Coefficient of Variation % 13.5 % (11.5-15.5); Red Blood Count 4.98 m/uL (4.30-5.90); White Blood Count* 10.26 K/uL (4.50-11.00)
[2024-11-06 06:03] LABS: Slide Review Reflex No
[2024-11-06 06:14] LABS: Albumin* 4.5 g/dL (3.3-5.0); Chloride* 107 mmol/L (96-114); Potassium* 4.1 mmol/L (3.6-5.1); Sodium* 141 mmol/L (135-149)
[2024-11-06 06:17] LABS: Alanine Aminotransferase* 24 U/L (4-50); Alkaline Phosphatase* 70 U/L (40-150); Anion Gap 13 mEq/L (7-15); Aspartate Amino Transferase* 34 U/L (12-35); Bilirubin Direct* 0.2 mg/dL (0.0-0.5); Bilirubin Total* 0.8 mg/dL (0.1-1.5); Blood Urea Nitrogen* 20 mg/dL (7-30); Carbon Dioxide* 21 mmol/L (20-32); Est. Creatinine Clearance* 78.68; Estimated Glomerular Filt Rate 82 ml/min; Total Protein* 6.9 g/dL (6.0-8.3)
[2024-11-06 06:18] LABS: Calcium* 9.3 mg/dL (8.4-10.6); Glucose* 158 mg/dL (60-115)
[2024-11-06 07:24] LABS: NT Pro B Type NatriureticPept* 93 pg/mL (See Note); Troponin I* < 0.01 ng/mL (0.01-0.04)
[2024-11-06 07:41] LABS: Troponin, Point-of-Care* 0.01 ng/ml (0.01-0.04)
--- NOTE | 2024-11-06 08:12 | CRLHL7_ITS ---
For Patients: As a result of the 21st Century Cures Act, medical imaging exams and procedure reports are released immediately into your electronic medical record. You may view this report before your referring provider. If you have questions, please contact your health care provider. INDICATION: Right lower quadrant pain, lower abdominal pain. COMPARISON: None. TECHNIQUE: CT of the abdomen and pelvis with intravenous contrast. Multiplanar axial, coronal, and sagittal reformats were reconstructed. Contrast: 105 mL Isovue 370. FINDINGS: Lung bases: Mild basilar atelectasis. Liver: Suspect some degree of hepatic steatosis. There is a well-circumscribed unilocular 1.5 centimeter cyst in segment V. no worrisome liver lesions. Patent hepatic vasculature. Gallbladder and bile ducts: No gallbladder wall thickening or adjacent inflammation. Minimal layering gallstones or hyperdense sludge. No bile duct dilation. Pancreas: Normal. Spleen: Normal. Adrenal glands: Normal. Kidneys: Normal parenchyma. No cyst or solid mass. No calculi. No urinary tract dilation. Urinary bladder: Normal. Pelvis: No cyst or mass. Vessels: Atherosclerosis. Widely patent mesenteric arteries and veins. Bowel: Focal bowel wall thickening and adjacent inflammation at the base of the appendix. At the base of the appendix/cecum there is a 1.0 x 1.4 centimeter hyperdensity. This may be a faintly calcified appendicolith that are hyperenhancing lesion such as a carcinoid is difficult to exclude completely. The distal appendix is fluid-filled with some mild wall thickening proximally but the tip is normal. The maximum appendiceal diameter is about 9 millimeters. No other inflamed bowel. Scattered colonic diverticuli without diverticulitis. Moderate stool burden. Lymph nodes: No adenopathy. Peritoneum: No ascites. Abdominal wall: Fat containing right inguinal hernia. Bones: No fractures. No focal worrisome bone lesions. IMPRESSION: 1. Acute appendicitis. There is a 1.0 x 1.4 centimeter hyperdense abnormality at the origin of the appendix from the cecum. Could be a faintly calcified appendicolith but a hyperenhancing mass also needs to be considered. 2. No perforation or abscess. 3. No adenopathy. 4. No worrisome liver lesions. Please note that all CT scans at this facility use dose modulation, iterative reconstruction, and/or weight-based dosing when appropriate to reduce radiation dose to as low as reasonably achievable. Dictated by Lorie Serna MD @ 11/06/2024 9:16:06 AM (Electronically Signed)
[2024-11-06] MEDS: 0.9 % SODIUM CHLORIDE 500 ML 500 ML 1000 ML IV (09:08)
--- NOTE | 2024-11-06 10:03 | CRLHL7_ITS ---
For Patients: As a result of the Century Cures Act, medical imaging exams and procedure reports are released immediately into your electronic medical record. You may view this report before your referring provider. If you have questions, please contact your health care provider. INDICATION: Preoperative assessment COMPARISON: None TECHNIQUE: A single view study was obtained as a portable CXR, November 06, 2024 FINDINGS: As discussed below IMPRESSION: Normal cardiac contours. Lungs and pleural spaces appear normal. No acute osseous abnormality. No evidence of active pulmonary disease on this single view portable chest radiograph. Dictated by Maurice Borjas MD @ 11/06/2024 10:49:56 AM (Electronically Signed)
[2024-11-06] MEDS: 0.9 % SODIUM CHLORIDE 1000 ml 1,000 ML IV (10:20)
--- NOTE | 2024-11-06 12:35 | PM.GSHP ---
History of Present Illness History of Present Illness Date Seen: 11/06/24 Chief complaint: chest pain Narrative: Rodolfo Kaye is a 69 year old male presented to emergency room with abdominal pain that started in the middle of the night. Patient's abdominal pain was periumbilical. Patient had ?pain like this when he had a heart attack in 2013? and was worried about having another heart attack. Patient presented to emergency room. He denied any nausea vomiting. He was passing gas. Patient's pain continued but was more in the right lower quadrant. I personally reviewed patient's workup in the emergency room. Patient was found to have normal troponin. EKG was done that showed normal sinus rhythm with no ST elevations. Patient's hemoglobin was found to be 20. His WBC was normal at 10. An abdominal CT was obtained that showed prominent appendix with minimal dilatation. There was also a possible appendicolith at the base of the appendix versus a hyperdensity concerning for a mass at the base of the appendix. No enlarged lymph nodes were identified. He has never had a colonoscopy. Patient states that when his dad had a colonoscopy 40 years ago and patient saw him after the colonoscopy, dad did not want to have repeat colonoscopy and that discouraged the patient to have his own colonoscopy. Patient denies family history of colon cancer or polyps. Review of Systems Narrative: General: no fevers HENT: no problems swallowing CV: no shortness of breath Resp: no cough GI: No nausea, vomiting, abdominal pain : no dysuria, no increased urinary frequency, no hematuria Skin: no new rashes Musculoskeletal: no back pain Neuro: no muscle weakness Psyche: no depression, no anxiety PFSH PFSH Medical History (Updated 11/06/24 @ 12:[address] MD) Heart attack ?I21.9 - Acute myocardial infarction, unspecified (ICD-10) Social History (Updated 11/06/24 @ 12:[address] MD) Narrative: Patient denies smoking and rarely drinks alcohol. 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 Smoking Status: Former smoker How often do you have a drink containing alcohol: never AUDIT-C Alcohol total score: 0 Non-prescribed substance use: denies use Meds Home Medications and Allergies Home Medications ?Medication ?Instructions ?Recorded ?Confirmed ?Type atorvastatin 40 mg tablet 40 mg PO DAILY 11/06/24 11/06/24 History empagliflozin 10 mg tablet 10 mg PO DAILY 11/06/24 11/06/24 History (Jardiance) gabapentin 100 mg capsule 200 mg PO HS PRN 11/06/24 11/06/24 History glipizide 10 mg tablet 20 mg PO BID 11/06/24 11/06/24 History losartan 25 mg tablet 25 - 50 mg PO BID 11/06/24 11/06/24 History metformin 500 mg tablet,extended 1,000 mg PO BIDWM 11/06/24 11/06/24 History release 24 hr metoprolol succinate 50 mg 50 mg PO DAILY 11/06/24 11/06/24 History tablet,extended release 24 hr tirzepatide 12.5 mg/0.5 mL 12.5 mg subcut Q7D 11/06/24 11/06/24 History subcutaneous pen injector (Masonunpriscillaro) Allergies Allergy/AdvReac Type Severity Reaction Status Date / Time lisinopril Allergy Cough Verified 11/06/24 09:08 Exam Narrative: Exam Narrative: General appearance: Alert, cooperative, and in no distress Pulmonary: Chest symmetric, lungs clear bilaterally Cardiovascular Heart: Regular rate and rhythm, S1, S2, no murmurs/rubs/gallops Gastrointestinal Abdominal: soft, protuberant not distended, tender to palpation in the right lower quadrant with rebound tenderness. Skin: Normal skin color, texture, and turgor. No rashes or lesions. Psychiatric: Alert, cooperative, normal affect. Const: Vital Signs, click to edit/add: Vital Signs - 24 hr 11/06/24 05:17 11/06/24 05:25 11/06/24 05:27 Temperature 97.6 F Pulse Rate 85 87 Pulse Rate [Pulse Oximeter] 82 Respiratory Rate 18 16 16 Blood Pressure 170/95 H Blood Pressure [Ri ght Upper Arm] 184/109 H Pulse Oximetry 96 96 99 Oxygen Delivery Me thod Room Air 11/06/24 05:30 11/06/24 05:41 11/06/24 05:43 Temperature Pulse Rate 83 Pulse Rate [Pulse Oximeter] Respiratory Rate 19 14 Blood Pressure 142/82 H Blood Pressure [Ri ght Upper Arm] Pulse Oximetry 100 95 Oxygen Delivery Me thod 11/06/24 05:45 11/06/24 06:00 11/06/24 06:01 Temperature Pulse Rate 78 80 83 Pulse Rate [Pulse Oximeter] Respiratory Rate 18 16 16 Blood Pressure 157/95 H Blood Pressure [Ri ght Upper Arm] Pulse Oximetry 99 98 100 Oxygen Delivery Me thod 11/06/24 06:15 11/06/24 06:16 11/06/24 06:22 Temperature Pulse Rate 82 64 Pulse Rate [Pulse Oximeter] Respiratory Rate 18 21 13 Blood Pressure 129/118 H 172/85 H Blood Pressure [Ri ght Upper Arm] Pulse Oximetry 100 94 97 Oxygen Delivery Me thod 11/06/24 06:42 11/06/24 06:45 11/06/24 07:00 Temperature Pulse Rate 69 75 Pulse Rate [Pulse Oximeter] Respiratory Rate 12 Blood Pressure 160/99 H Blood Pressure [Ri ght Upper Arm] Pulse Oximetry 98 92 95 Oxygen Delivery Me thod 11/06/24 07:02 11/06/24 07:15 11/06/24 07:21 Temperature Pulse Rate 87 81 Pulse Rate [Pulse Oximeter] Respiratory Rate 14 24 Blood Pressure 167/77 H Blood Pressure [Ri ght Upper Arm] Pulse Oximetry 95 97 96 Oxygen Delivery Me thod 11/06/24 07:30 11/06/24 07:42 11/06/24 07:45 Temperature Pulse Rate 81 79 78 Pulse Rate [Pulse Oximeter] Respiratory Rate 19 13 14 Blood Pressure 154/85 H Blood Pressure [Ri ght Upper Arm] Pulse Oximetry 98 95 98 Oxygen Delivery Me thod 11/06/24 08:00 11/06/24 08:02 11/06/24 08:15 Temperature Pulse Rate 60 79 88 Pulse Rate [Pulse Oximeter] Respiratory Rate 20 16 14 Blood Pressure 153/86 H Blood Pressure [Ri ght Upper Arm] Pulse Oximetry 98 94 90 Oxygen Delivery Me thod 11/06/24 08:24 11/06/24 08:30 11/06/24 08:42 Temperature Pulse Rate 95 87 Pulse Rate [Pulse Oximeter] Respiratory Rate 20 15 16 Blood Pressure 152/97 H 138/84 Blood Pressure [Ri ght Upper Arm] Pulse Oximetry 97 97 Oxygen Delivery Me thod 11/06/24 08:45 11/06/24 09:05 11/06/24 09:15 Temperature Pulse Rate 87 88 86 Pulse Rate [Pulse Oximeter] Respiratory Rate 18 Blood Pressure 164/111 H Blood Pressure [Ri ght Upper Arm] Pulse Oximetry 93 94 98 Oxygen Delivery Me thod 11/06/24 09:34 11/06/24 09:35 11/06/24 09:45 Temperature Pulse Rate 93 93 Pulse Rate [Pulse Oximeter] Respiratory Rate 23 19 18 Blood Pressure 143/89 H Blood Pressure [Ri ght Upper Arm] Pulse Oximetry 99 93 Oxygen Delivery Me thod 11/06/24 10:00 11/06/24 10:02 11/06/24 10:15 Temperature Pulse Rate 92 94 98 Pulse Rate [Pulse Oximeter] Respiratory Rate 21 23 27 H Blood Pressure 150/100 H Blood Pressure [Ri ght Upper Arm] Pulse Oximetry 99 98 98 Oxygen Delivery Me thod 11/06/24 10:30 11/06/24 10:45 11/06/24 11:00 Temperature Pulse Rate 98 88 89 Pulse Rate [Pulse Oximeter] Respiratory Rate 19 18 26 H Blood Pressure Blood Pressure [Ri ght Upper Arm] Pulse Oximetry 99 95 97 Oxygen Delivery Me thod 11/06/24 11:02 11/06/24 11:15 11/06/24 11:30 Temperature Pulse Rate 92 92 96 Pulse Rate [Pulse Oximeter] Respiratory Rate 24 26 H 21 Blood Pressure 150/93 H Blood Pressure [Ri ght Upper Arm] Pulse Oximetry 97 98 96 Oxygen Delivery Me thod 11/06/24 11:45 11/06/24 12:00 11/06/24 12:02 Temperature Pulse Rate 90 93 93 Pulse Rate [Pulse Oximeter] Respiratory Rate 19 25 H 49 H Blood Pressure 155/84 H Blood Pressure [Ri ght Upper Arm] Pulse Oximetry 98 96 87 L Oxygen Delivery Me thod 11/06/24 12:15 Temperature Pulse Rate 101 H Pulse Rate [Pulse Oximeter] Respiratory Rate 30 H Blood Pressure Blood Pressure [Ri ght Upper Arm] Pulse Oximetry 99 Oxygen Delivery Me thod Progress Note:A&P Assessment and plan (1) Acute appendicitis: Status: Acute Plan 69-year-old male presents with right lower quadrant abdominal pain that is most likely due to acute appendicitis. I discussed with the patient and his son his laboratory and CT findings. Patient's WBC is normal on today's exam. Abdominal CT shows wall enhancing dilated appendix with small amount of periappendiceal inflammation. This is concerning for acute appendicitis. I also discussed with the patient and his son that there is a hyperintense lesion or mass at the base of the appendix that could be stool versus a mass at the base of the appendix. I recommended to proceed with laparoscopic appendectomy. If patient's appendiceal base is soft and able to be stapled, we will complete laparoscopic appendectomy and patient will need to have colonoscopy in 8 weeks to evaluate the hyper dense mass versus stool. Depending on the pathology of the appendix, I did discuss the need for possible additional procedures. If patient's cecum and base of the appendix is very firm and unable to be addressed with just laparoscopic appendectomy or partial cecectomy, I did discussed with the patient proceeding with right hemicolectomy. Both procedures were discussed in detail. The risks associated procedures including infection, bleeding, anastomotic leak, the need for additional procedures, and cardiopulmonary complications were all discussed with the patient, and he agreed to proceed. Patient's hemoglobin was found to be 20. This is unusual and would need to be followed up and worked up in the future.
[2024-11-06 12:42] LABS: Appearance Urine Clear (Clear); Bilirubin Urine Negative (Negative); Blood Urine Negative (Negative); Color Urine Yellow (Yellow); Glucose Urine 2+ (Negative); Ketones Urine Negative (Negative); Leukocyte Esterase Urine Negative (Negative); Nitrite Urine Negative (Negative); Protein Urine Negative (Negative); Urobilinogen Urine 0.2 (0.2-1.0); pH Urine 5.5 (5.0-8.5)
--- NOTE | 2024-11-06 12:44 | P.GSOP_ITS ---
Operative Note Date of procedure: 11/06/24 Pre-op diagnosis: 1. Acute appendicitis. 2. Hyperdense mass or lesion at the base of the appendix of unknown etiology. Post-op diagnosis: 1. Hyperemic appendix concerning for acute appendicitis. 2. Thickened cecum concerning for mass at the base of the appendix. Type of Procedure: 1. Laparoscopic appendectomy converted to laparoscopic right hemicolectomy. Indications: 69-year-old male presented to emergency room with right lower quadrant abdominal pain. Patient was passing gas and denied nausea vomiting. Patient's workup revealed normal troponin and EKG not concerning for cardiac event. Patient's WBC was 10. An abdominal CT was obtained that showed dilated wall enhancing osei endix with periappendiceal inflammation. There was also a hyperdense lesion or mass at the base of the appendix of unknown etiology. On clinical exam patient had tenderness to palpation in the right lower quadrant with rebound tenderness. Given patient's clinical history and his physical exam, laparoscopic appendectomy and possible need for additional procedures such as right hemicolectomy were discussed with the patient. The procedures were discussed in detail. The risks associated procedure including infection, bleeding, the need for additional procedures, and the need to have repeat procedures in the near future of were all discussed with the patient, and he agreed to proceed. Procedure Description: After discussing the risks and benefits of the procedure, the patient signed informed consent.? The operative site was marked and the patient was brought to the operating room and placed on the operating table in supine position.? Care was taken to pad the patient's pressure points.?? The patient was then intubated by anesthesia.?? The operative site was then prepped and draped in the usual sterile fashion.? A time-out was then performed. A 5-mm laparoscopy port was placed in the left upper quadrant guided by a 5-mm laparoscope placed into a translucent trochar. Passage through the layers of the abdominal wall was visualized with the laparoscope. A pneumoperitoneum was established. A 30-degree 5-mm laparoscope was advanced into the abdomen. The abdomen was briefly surveyed, and there was no evidence of diffuse peritonitis. A 12-mm port and a 5-mm port were placed in the left low quadrant and suprapubically, respectively, under direct visualization by laparoscope. Left upper quadrant entrance port was then examined intraabdominally by placing the camera through the left lower quadrant port and no intraabdominal injury was seen. The patient was placed in Trendelenburg position, allowing the abdominal contents to shift cephalad. The small bowel was moved toward the midline in the abdomen and this allowed for identification of the appendix. Appendix appeared to be hyperemic and the adjacent cecum was also hyperemic. The base of the appendix was palpated and was firm on palpation. That cecal hyperemia extended distal to the ileocecal valve. The cecum was not edematous to explain the thickening at the base of the appendix and the appendix was not very large or edematous to explain the thickening of the base of the appendix. Given patient's CT finding of hyperdense lesion at the base of the appendix and his intraoperative findings, I was concerned for malignancy at the appendiceal base. I decided to proceed with laparoscopic right hemicolectomy. An additional 5 mm port was placed midway between the umbilicus and xiphoid process under direct visualization. The appendix was grasped and retracted medially. The White line of [place] was divided with Harmonic scalpel near the cecum to create the correct retroperitoneal plane.? This dissection was carried along the abdominal wall just beyond the cecum. The terminal ileum was adherent to the peritoneum posterior to the cecum. These peritoneal adhesions were taken down with Harmonic scalpel. During this dissection harmonic scalpel hot blade touched the wall of small intestine at the mesenteric border. This area was marked with a 5 mm clip and later during the open part of the procedure oversewn with 3-0 silk suture to avoid transmural injury. I then proceeded with a medial to lateral dissection. The cecum was grasped and retracted towards the abdominal wall.? The ileocolic vascular pedicle was identified and skeletonized from the mesenteric fat with Harmonic scalpel.? The ileocolic vessels were then stapled with a vascular staple load of Endo-KIMMIE stapler.? No bleeding was seen from the vascular pedicle.? Dissection was then carried towards the liver.? Colonic mesentery was divided with Harmonic scalpel. The right branch of the middle colic artery was identified. This was skeletonized with Harmonic scalpel. This was clipped with 5 mm clips on the patient's side at the base of the branch and with a single clip on the specimen side and divided with Harmonic scalpel. The omentum was adherent to the medial hepatic flexure. These adhesions were taken down with Harmonic scalpel. I then proceeded with laparoscopic mobilization of hepatic flexure. The transverse colon and hepatic flexure were reflected caudad and gastrocolic ligament was divided with the Harmonic scalpel. This dissection was carried towards the lateral abdominal wall in the relatively avascular plane. Unusual scarring was noted between retroperitoneal plane and Gerota's fascia. This was divided with Harmonic scalpel. Duodenum was identified during this dissection and care was taken not to injure it.? When the transverse colon and hepatic flexure were fairly mobile and dissected of retroperitoneum, we then extended our dissection from the hepatic flexure towards the cecum along the lateral abdominal wall.? The right colon was fairly mobile and I proceeded with extracorporeal part of the procedure. The patient was flattened and a supraumbilical vertical surgical incision was made with a scalpel through the 5 mm supraumbilical port incision. Subcutaneous tissues were divided with cautery. Anterior fascia was divided with cautery.? The rectus muscles were retracted laterally and medially. Posterior sheath and peritoneum were grasped and the abdomen was entered with cautery.? The abdomen was then deflated.? The Jono retractor was placed into the incision.? The dissected right colon was exteriorized.? Peritoneal adhesions were still tettering the terminal ileum. Those were lysed with Harmonic scalpel and cautery. Omentum was mobilized off the proximal transverse colon in order to make anastomosis. This was done with Harmonic scalpel. % The distal ascending colon mesentery was still attached to the retroperitoneum. These adhesions were taken down carefully with Harmonic scalpel. During this dissection Harmonic scalpel was thought to be too close to the duodenum, and I was concerned about injury to the duodenum. I elected to place an interrupted 3-0 silk suture to over-sew the area of concern. This was located in the medial second portion of the duodenum. When the right colon and hepatic flexure were mobile, I proceeded with [id number] functional end-to-end anastomosis. Small bowel mesentery in the terminal ileum was divided with clamps and Vicryl ties. A segment of omentum overlying the proximal transverse colon was in the way of anastomosis creation. This was excised with Harmonic scalpel and sent to pathology as omental segment. A blue load of KIMMIE stapler was used to divide the terminal ileum and ascending colon at the level of proximal transverse colon. The transverse colon and distal terminal ileum was then lined up for anastomosis with a stay sutures. Both ends were well perfused.? An enterotomy was made near the staple line with cautery.? A colotomy was also made near the staple line with cautery.? The handles of the KIMMIE stapler were advanced into the small intestine and colon.? The [id number] anastomosis was then made with the 100 blue load of KIMMIE stapler.? The staple line was examined from the inside and no active bleeding was seen.? The common enterotomy was then closed with interrupted 3-0 silk pop-off sutures using Lembert sutures.? A crotch stitch was placed with 3-0 silk suture as well.? The anastomosis was palpated and was patent.? Anastomosis appeared well perfused.? The anastomosis was then placed into the abdomen.? The right colon was opened on the back table and the base of the appendix was thickened with the donut like base of the appendix mass. The right colon was sent to pathology. All the dirty instruments and towels were removed.? The Jono retractor was removed.? The surgeon and assistants changed gloves to new gloves.? We then pr oceeded with abdominal closure. The anterior fascia was then closed with 2 running 0-0 PDS sutures.?The abdomen was then insufflated again.? The anastomosis was examined intra-abdominally.? No bleeding was identified in the surgical field.? The anastomosis appeared to be well perfused.? The abdomen was irrigated and no significant bleeding was noted in the surgical site.? Omentum was placed over the right-sided abdomen and over anastomosis.? The fascia of the left lower quadrant 12 mm port incision was closed with 0-0 Vicryl sutures with Lui-Nash needle under direct visualization. The 5 mm ports were removed under direct visualization and pneumoperitoneum was reduced through a left upper quadrant incision. The dermis of the supraumbilical incision was reapproximated with interrupted 3- 0 Vicryl sutures.? The skin of supraumbilical incision was then closed with itzel. The skin of other laparoscopic incisions was closed with 4-0 Monocryl stitches.? Sterile dressings were placed over the incisions. All counts were correct at the end of the case. Retana catheter was placed under sterile conditions at the end of the case. The patient tolerated this procedure well and was transferred to PACU in stable condition. Findings: Thickened base of the appendix with hyperemic cecum and appendix concerning for a mass. When the right colon was examined and the back table a thickened submucosal mass was noted at the base of the appendix. Anesthesia: GETA Surgeon: Everardo Lane MD Estimated blood loss (mL): 40 Additional Specimen Information: 1. Right colon and omental segment. Condition: stable Disposition: PACU Colon Resection Operation Performed with Curative Intent: Yes Tumor location: Cecum Extent of colon and vascular resection: Right hemicolectomy-ileocolic, right colic (if present)
[2024-11-06 12:51] LABS: RBC Urine 0-2 (0-2); Squamous Epithelial Cell Urine Few (None-Few); WBC Urine 0-2 (0-5)
[2024-11-06] MEDS: LACTATED RINGERS 1000 ML 1,000 ML 125 ML IV ×3 (12:57→16:53)
[2024-11-06] MEDS: PIPERACILLIN/TAZOBACTAM 3.375 GM INJ IVPB (13:10)
--- NOTE | 2024-11-06 13:25 | P.ANES_ITS ---
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
--- NOTE | 2024-11-06 13:25 | W.ANESCHARGE ---
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
--- NOTE | 2024-11-06 13:53 | SUR.OPER ---
RN updated patients son at 1353 that surgeon will need to take out patients right colon.
[2024-11-06] MEDS: LIDOCAINE 1%-EPI 1:100,000 20 ML INFILTRATI (14:00)
[2024-11-06] MEDS: BUPIVACAINE 0.25% 30 ML INJECTION (14:00)
--- NOTE | 2024-11-06 16:54 | W.PM.NB ---
Nerve Block Nerve Block Time Seen by Provider: 17:40 Date Seen: 11/06/24 Type of block requested by surgeon for post-operative analgesia: TAP Side: bilateral Time out performed: Yes Verification of patient name: Yes Verification of date of : Yes Site marking: site marked Name of person performing procedure: Lane Liu Continuous monitoring Was continuous monitoring of O2 sat, B/P, youth nutritional monitor, recorded every 15 minutes?: Yes Procedure Checklist: sterile prep, needles and gloves Ultrasound guided. Images saved: Yes Medications given in 5ml increments after negative aspiration: Marcaine %: 0.25 mL: 30 Needle gauge: 20 and Exparel mL: 10 Needle gauge: 20 Patient tolerated procedure well: Yes Additional comments: Injected in 5ml increments after negative aspiration Block Charges Block Charge (with Pro Fee): TAP Bilateral Use of Ultrasound Machine for Block: Yes- US Guidance/pain block
[2024-11-06] MEDS: fentaNYL 100 MCG/2 ML inj 50 MCG IVP ×2 (18:09→18:17)
[2024-11-06] MEDS: HYDROmorphone 0.5 mg/0.5 ml inj IVP ×3 (19:04→23:32)
--- NOTE | 2024-11-06 19:14 | PM.IMCN1 ---
Date of Consult Patient: Other Consult date: 11/06/24 Requesting Physician: General Surgery Primary Care Provider: Not a Local Provider Consult Narrative Reason for consult: Postop management of CAD, DM 2, HTN, HLD Narrative: Rodolfo Kaye is a 69 year old man presented early this morning with periumbilical pain radiating to the right lower quadrant of the abdomen. Unable to manage this at home and thus presented to the emergency department for further assessment and support. CT scan of abdomen and pelvis suggested mild dilatation of the appendix and hyperdense area at the base of the appendix. 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 Noteworthy is that CT scan did not demonstrate any lymphadenopathy. General surgeon asks hospitalist service to assess and support patient postoperatively regarding coronary artery disease, diabetes mellitus type 2, essential hypertension, hyperlipidemia. Noteworthy is that patient has NG tube in place and is NPO. Review of Systems Status of ROS: Reports: 6 or more systems reviewed and unremarkable except as noted in History and below Narrative: At baseline patient does not have angina or anginal equivalent, syncope or near syncope, nausea vomiting, palpitations, diaphoresis, dyspnea at rest, paroxysmal nocturnal dyspnea, orthopnea, or dyspnea with exertion. 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 Has no limitations carrying out activities of daily living or his job related activities. Manages his diabetes glucose levels with metformin, glipizide, and sitagliptin. Previously was on Ozempic but is no longer taking this due to gastroesophageal reflux symptoms he was having with that. States his fingerstick glucose levels typically run between 120 and 180. The glucose levels sometimes drop as low as 70 when he is exerting himself typically in the late afternoon should that happen. No problems or concerns with hypoglycemic symptoms. Quit smoking a number of years ago, when he had his myocardial infarction and stent implant. Has not had any tobacco since. Only rarely consumes alcoholic beverages small quantities. Denies use of any other street or recreational drugs. Lives alone. 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 Three sons are supportive. [facility] Medical History (Updated 11/06/24 @ 19:50 by Yohan Corey MD) Essential hypertension ?I10 - Essential (primary) hypertension (ICD-10) Hyperlipidemia ?E78.5 - Hyperlipidemia, unspecified (ICD-10) Diabetes mellitus type 2, controlled ?E11.9 - Type 2 diabetes mellitus without complications (ICD-10) Coronary artery disease ?I25.10 - Atherosclerotic heart disease of [place] coronary artery without angina pectoris (ICD-10) Heart attack ?I21.9 - Acute myocardial infarction, unspecified (ICD-10) Surgical History Stented coronary artery ?Z95.5 - Presence of coronary angioplasty implant and graft (ICD-10) Family History Father Heart disease High blood pressure Social History Narrative: Patient denies smoking and rarely drinks alcohol. 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 Smoking Status: Former smoker How often do you have a drink containing alcohol: never AUDIT-C Alcohol total score: 0 Non-prescribed substance use: denies use Meds Home Medications and Allergies Home Medications ?Medication ?Instructions ?Recorded ?Confirmed ?Type atorvastatin 40 mg tablet 40 mg PO DAILY 11/06/24 11/06/24 History empagliflozin 10 mg tablet 10 mg PO DAILY 11/06/24 11/06/24 History (Jardiance) gabapentin 100 mg capsule 200 mg PO HS PRN 11/06/24 11/06/24 History glipizide 10 mg tablet 20 mg PO BID 11/06/24 11/06/24 History losartan 25 mg tablet 25 - 50 mg PO BID 11/06/24 11/06/24 History metformin 500 mg tablet,extended 1,000 mg PO BIDWM 11/06/24 11/06/24 History release 24 hr metoprolol succinate 50 mg 50 mg PO DAILY 11/06/24 11/06/24 History tablet,extended release 24 hr tirzepatide 12.5 mg/0.5 mL 12.5 mg subcut Q7D 11/06/24 11/06/24 History subcutaneous pen injector (Jeffrey) Allergies Allergy/AdvReac Type Severity Reaction Status Date / Time lisinopril Allergy Cough Verified 11/06/24 09:08 Exam Narrative: Exam Narrative: Examined patient in his hospital room with his 3 sons near his side. Awake alert and talkative. Oriented x4. Vision and hearing are adequate. NG tube in place. Conjugate gaze. Supple neck. Midline trachea. No head neck lymphadenopathy. Lungs clear to auscultation without wheezing, rhonchi, or rales. Chest wall excursions are full. No CVA tenderness to thumping. Heart tones with regular rhythm, normal S1-S2, without murmur, gallop, rub. PMI not laterally displaced. Abdomen is quiet with NG tube in place. Moves all 4 extremities with no focal motor neurologic deficits. Const: Vital Signs, click to edit/add: Vital Signs - 24 hr 11/06/24 05:17 11/06/24 05:25 11/06/24 05:27 Temperature 97.6 F Pulse Rate 85 87 Pulse Rate [Pulse Oximeter] 82 Respiratory Rate 18 16 16 Blood Pressure 170/95 H Blood Pressure [Ri ght Upper Arm] 184/109 H Pulse Oximetry 96 96 99 Oxygen Delivery Me thod Room Air 11/06/24 05:30 11/06/24 05:41 11/06/24 05:43 Temperature Pulse Rate 83 Pulse Rate [Pulse Oximeter] Respiratory Rate 19 14 Blood Pressure 142/82 H Blood Pressure [Ri ght Upper Arm] Pulse Oximetry 100 95 Oxygen Delivery Me thod 11/06/24 05:45 11/06/24 06:00 11/06/24 06:01 Temperature Pulse Rate 78 80 83 Pulse Rate [Pulse Oximeter] Respiratory Rate 18 16 16 Blood Pressure 157/95 H Blood Pressure [Ri ght Upper Arm] Pulse Oximetry 99 98 100 Oxygen Delivery Me thod 11/06/24 06:15 11/06/24 06:16 11/06/24 06:22 Temperature Pulse Rate 82 64 Pulse Rate [Pulse Oximeter] Respiratory Rate 18 21 13 Blood Pressure 129/118 H 172/85 H Blood Pressure [Ri ght Upper Arm] Pulse Oximetry 100 94 97 Oxygen Delivery Me thod 11/06/24 06:42 11/06/24 06:45 11/06/24 07:00 Temperature Pulse Rate 69 75 Pulse Rate [Pulse Oximeter] Respiratory Rate 12 Blood Pressure 160/99 H Blood Pressure [Ri ght Upper Arm] Pulse Oximetry 98 92 95 Oxygen Delivery Me thod 11/06/24 07:02 11/06/24 07:15 11/06/24 07:21 Temperature Pulse Rate 87 81 Pulse Rate [Pulse Oximeter] Respiratory Rate 14 24 Blood Pressure 167/77 H Blood Pressure [Ri ght Upper Arm] Pulse Oximetry 95 97 96 Oxygen Delivery Me thod 11/06/24 07:30 11/06/24 07:42 11/06/24 07:45 Temperature Pulse Rate 81 79 78 Pulse Rate [Pulse Oximeter] Respiratory Rate 19 13 14 Blood Pressure 154/85 H Blood Pressure [Ri ght Upper Arm] Pulse Oximetry 98 95 98 Oxygen Delivery Me thod 11/06/24 08:00 11/06/24 08:02 11/06/24 08:15 Temperature Pulse Rate 60 79 88 Pulse Rate [Pulse Oximeter] Respiratory Rate 20 16 14 Blood Pressure 153/86 H Blood Pressure [Ri ght Upper Arm] Pulse Oximetry 98 94 90 Oxygen Delivery Me thod 11/06/24 08:24 11/06/24 08:30 11/06/24 08:42 Temperature Pulse Rate 95 87 Pulse Rate [Pulse Oximeter] Respiratory Rate 20 15 16 Blood Pressure 152/97 H 138/84 Blood Pressure [Ri ght Upper Arm] Pulse Oximetry 97 97 Oxygen Delivery Me thod 11/06/24 08:45 11/06/24 09:05 11/06/24 09:15 Temperature Pulse Rate 87 88 86 Pulse Rate [Pulse Oximeter] Respiratory Rate 18 Blood Pressure 164/111 H Blood Pressure [Ri ght Upper Arm] Pulse Oximetry 93 94 98 Oxygen Delivery Me thod 11/06/24 09:34 11/06/24 09:35 11/06/24 09:45 Temperature Pulse Rate 93 93 Pulse Rate [Pulse Oximeter] Respiratory Rate 23 19 18 Blood Pressure 143/89 H Blood Pressure [Ri ght Upper Arm] Pulse Oximetry 99 93 Oxygen Delivery Me thod 11/06/24 10:00 11/06/24 10:02 11/06/24 10:15 Temperature Pulse Rate 92 94 98 Pulse Rate [Pulse Oximeter] Respiratory Rate 21 23 27 H Blood Pressure 150/100 H Blood Pressure [Ri ght Upper Arm] Pulse Oximetry 99 98 98 Oxygen Delivery Me thod 11/06/24 10:30 11/06/24 10:45 11/06/24 11:00 Temperature Pulse Rate 98 88 89 Pulse Rate [Pulse Oximeter] Respiratory Rate 19 18 26 H Blood Pressure Blood Pressure [Ri ght Upper Arm] Pulse Oximetry 99 95 97 Oxygen Delivery Me thod 11/06/24 11:02 11/06/24 11:15 11/06/24 11:30 Temperature Pulse Rate 92 92 96 Pulse Rate [Pulse Oximeter] Respiratory Rate 24 26 H 21 Blood Pressure 150/93 H Blood Pressure [Ri ght Upper Arm] Pulse Oximetry 97 98 96 Oxygen Delivery Me thod 11/06/24 11:45 11/06/24 12:00 11/06/24 12:02 Temperature Pulse Rate 90 93 93 Pulse Rate [Pulse Oximeter] Respiratory Rate 19 25 H 49 H Blood Pressure 155/84 H Blood Pressure [Ri ght Upper Arm] Pulse Oximetry 98 96 87 L Oxygen Delivery Me thod 11/06/24 12:15 11/06/24 12:30 11/06/24 17:42 Temperature 97.7 F Pulse Rate 101 H 100 99 Pulse Rate [Pulse Oximeter] Respiratory Rate 30 H 16 Blood Pressure 143/122 H Blood Pressure [Ri ght Upper Arm] Pulse Oximetry 99 92 97 Oxygen Delivery Me thod Room Air 11/06/24 17:47 11/06/24 17:51 11/06/24 17:56 Temperature Pulse Rate 99 100 99 Pulse Rate [Pulse Oximeter] Respiratory Rate 16 16 16 Blood Pressure 152/99 H 145/125 H 142/84 H Blood Pressure [Ri ght Upper Arm] Pulse Oximetry 97 94 94 Oxygen Delivery Me thod 11/06/24 18:01 11/06/24 18:06 11/06/24 18:11 Temperature Pulse Rate 97 98 97 Pulse Rate [Pulse Oximeter] Respiratory Rate 16 16 16 Blood Pressure 148/84 H 152/92 H 147/94 H Blood Pressure [Ri ght Upper Arm] Pulse Oximetry 94 94 92 Oxygen Delivery Me thod 11/06/24 18:16 11/06/24 18:21 Temperature 97.6 F Pulse Rate 94 96 Pulse Rate [Pulse Oximeter] Respiratory Rate 16 16 Blood Pressure 141/85 H 139/85 Blood Pressure [Ri ght Upper Arm] Pulse Oximetry 95 95 Oxygen Delivery Me thod Room Air Labs Labs: Short CBC 11/06/24 Range/Units 05:20 WBC 10.26 (4.50-11.00) K/uL Hgb 20.2 H (13.5-17.5) gm/dL Hct 45.9 (37.0-53.0) % Plt Count 236 (140-440) K/uL BMP 11/06/24 05:38 Sodium 141 Potassium 4.1 Chloride 107 Carbon Dioxide 21 BUN 20 Creatinine 1.0 Glucose 158 H Calcium 9.3 Cardiac Enzymes 11/06/24 Range/Units 05:38 Troponin I < 0.01 (0.01-0.04) ng/mL Liver Function 11/06/24 Range/Units 05:38 Total Bilirubin 0.8 (0.1-1.5) mg/dL Direct Bilirubin 0.2 (0.0-0.5) mg/dL AST 34 (12-35) U/L ALT 24 (4-50) U/L Alkaline Phosphatase 70 (40-150) U/L Albumin 4.5 (3.3-5.0) g/dL Urine 11/06/24 Range/Units 12:35 Urine Color Yellow (Yellow) Urine Appearance Clear (Clear) Urine pH 5.5 (5.0-8.5) Ur Specific [place] 1.010 (1.000-1.030) Urine Protein Negative (Negative) Urine Glucose (UA) 2+ A (Negative) ECG Attestation: I personally reviewed and interpreted this ECG as follows: Interpretation: Normal sinus rhythm Imaging CT scan - abdomen: Radiologist's impression: IMPRESSION: 1. Acute appendicitis. There is a 1.0 x 1.4 centimeter hyperdense abnormality at the origin of the appendix from the cecum. Could be a faintly calcified appendicolith but a hyperenhancing mass also needs to be considered. 2. No perforation or abscess. 3. No adenopathy. 4. No worrisome liver lesions. 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 Resting LVEF 55-60%, with normal response to exercise with LVEF of 65-70%. -in-hospital hold aspirin while NPO and recovering from surgery Status: Acute (4) Diabetes mellitus type 2, controlled: Problem comment: -in-hospital hold metformin, glipizide, and Shannan, and monitor glucose levels q.6 hours while NPO and cover with sliding scale fast acting insulin -will order hemoglobin A1c, understanding that the interpretation may be skewed due to the erythrocytosis Status: Acute (5) Essential hypertension: Problem comment: -hold lisinopril and metoprolol orally while NPO and schedule metoprolol tartrate IV q.6 hours and consider p.r.n. dosing if warranted Status: Acute (6) Hyperlipidemia: Problem comment: -in-hospital hold atorvastatin Status: Acute Plan 1. Reviewed impression and plans and recommendations with patient and sons 2. Answered their questions to their satisfaction 3. They are agreeable with above stated plans and recommendations Total Time Spent Total Time Spent: 70 min
[2024-11-06] MEDS: METOPROLOL TARTRATE 1 MG/ML inj 5 MG IVP (20:12)
[2024-11-06] MEDS: LACTATED RINGERS 1000 ML 1,000 ML 100 ML IV (23:44)
[2024-11-07] VITALS (9 sets, daily range): BP systolic 132–152; BP diastolic 75–96; PULSE 93–106; RESP 16–18; TEMP 36.4–37.2; O2SAT 90–94
[2024-11-07] MEDS: INSULIN ASPART 100 UNIT/ML SUBCUT ×3 (00:47→23:44)
[2024-11-07] MEDS: HYDROmorphone 0.5 mg/0.5 ml inj IVP ×10 (00:54→23:36)
[2024-11-07] MEDS: METOPROLOL TARTRATE 1 MG/ML inj 5 MG IVP ×4 (02:34→20:16)
[2024-11-07 06:09] LABS: Hemoglobin A1C* 6.7 % (0-5.6)
[2024-11-07 06:41] LABS: Basophils Percent Auto 0.1 % (0.0-3.0); Hematocrit 41.2 % (37.0-53.0); Hemoglobin* 13.3 gm/dL (13.5-17.5); Immature Granulocytes Pct Auto 0.4 %; Lymphocytes Percent Auto 7.1 % (20-44); Mean Corpuscular HGB Conc 32 gm/dL (32-36); Mean Corpuscular Hemoglobin 30 pg (26-34); Mean Corpuscular Volume 92 fL (80-100); Monocytes Percent Auto 8.8 % (0.0-11.0); Neutrophils Percent Auto 83.6 % (42.0-72.0); Platelet Count* 209 K/uL (140-440); RDW Coefficient of Variation % 13.6 % (11.5-15.5); Red Blood Count 4.49 m/uL (4.30-5.90)
[2024-11-07 06:45] LABS: Slide Review Reflex No
[2024-11-07 06:55] LABS: Chloride* 104 mmol/L (96-114)
[2024-11-07 06:56] LABS: Potassium* 4.1 mmol/L (3.6-5.1); Sodium* 135 mmol/L (135-149)
--- NOTE | 2024-11-07 06:58 | PC.NURSE ---
Pt pleasant, alert and oriented. Pt tachycardic, otherwise VSS. Midline and 3 lap sites C/D/I. Active ice applied. NG at 65 with roughly 200 cc out during shift. Retana patent and draining. Pain rated 8-9/10 throughout shift, prn dilaudid (roughly every 2-4 hr) provided, pt stated improvement. Around 0400 pt stated pain felt more tolerable and medication regimen benefiting. Ice chips tolerated. Denies nausea. ?Pt in bed, appears to be resting, call light within reach.?
[2024-11-07 06:59] LABS: Anion Gap 9 mEq/L (7-15); Blood Urea Nitrogen* 18 mg/dL (7-30); Calcium* 8.3 mg/dL (8.4-10.6); Carbon Dioxide* 22 mmol/L (20-32); Creatinine* 1.1 mg/dL (0.5-1.5); Est. Creatinine Clearance* 71.53; Estimated Glomerular Filt Rate 74 ml/min; Glucose* 151 mg/dL (60-115)
[2024-11-07] MEDS: LACTATED RINGERS 1000 ML 1,000 ML 75 ML IV ×2 (10:27→20:16)
--- NOTE | 2024-11-07 10:41 | PM.GSPN ---
Subjective Subjective Date Seen: 11/07/24 Interval history: Patient is doing well postoperatively. He does complain of abdominal pain that is improved with pain medications. He passed gas. He denied nausea vomiting. He had at least 1 L of urine since surgery. NG put out 200 mL. Exam Narrative: Exam Narrative: Abdomen distended, not tender to percussion but tender to palpation in bilateral mid abdomen. Midline incision is covered with clean dressing. Laparoscopic incisions are covered with dry dressings. Const: Vital Signs, click to edit/add: Vital Signs - 24 hr 11/06/24 10:45 11/06/24 11:00 11/06/24 11:02 Temperature Pulse Rate 88 89 92 Pulse Rate [Left P ulse Oximeter] Respiratory Rate 18 26 H 24 Blood Pressure 150/93 H Blood Pressure [Le ft Arm] Pulse Oximetry 95 97 97 Oxygen Delivery Me thod 11/06/24 11:15 11/06/24 11:30 11/06/24 11:45 Temperature Pulse Rate 92 96 90 Pulse Rate [Left P ulse Oximeter] Respiratory Rate 26 H 21 19 Blood Pressure Blood Pressure [Le ft Arm] Pulse Oximetry 98 96 98 Oxygen Delivery Me thod 11/06/24 12:00 11/06/24 12:02 11/06/24 12:15 Temperature Pulse Rate 93 93 101 H Pulse Rate [Left P ulse Oximeter] Respiratory Rate 25 H 49 H 30 H Blood Pressure 155/84 H Blood Pressure [Le ft Arm] Pulse Oximetry 96 87 L 99 Oxygen Delivery Me thod 11/06/24 12:30 11/06/24 17:42 11/06/24 17:47 Temperature 97.7 F Pulse Rate 100 99 99 Pulse Rate [Left P ulse Oximeter] Respiratory Rate 16 16 Blood Pressure 143/122 H 152/99 H Blood Pressure [Le ft Arm] Pulse Oximetry 92 97 97 Oxygen Delivery Me thod Room Air 11/06/24 17:51 11/06/24 17:56 11/06/24 18:01 Temperature Pulse Rate 100 99 97 Pulse Rate [Left P ulse Oximeter] Respiratory Rate 16 16 16 Blood Pressure 145/125 H 142/84 H 148/84 H Blood Pressure [Le ft Arm] Pulse Oximetry 94 94 94 Oxygen Delivery Me thod 11/06/24 18:06 11/06/24 18:11 11/06/24 18:16 Temperature Pulse Rate 98 97 94 Pulse Rate [Left P ulse Oximeter] Respiratory Rate 16 16 16 Blood Pressure 152/92 H 147/94 H 141/85 H Blood Pressure [Le ft Arm] Pulse Oximetry 94 92 95 Oxygen Delivery Me thod 11/06/24 18:21 11/06/24 18:30 11/06/24 18:45 Temperature 97.6 F 97.6 F 97.6 F Pulse Rate 96 94 93 Pulse Rate [Left P ulse Oximeter] Respiratory Rate 16 16 16 Blood Pressure 139/85 134/84 123/83 Blood Pressure [Le ft Arm] Pulse Oximetry 95 92 94 Oxygen Delivery Me thod Room Air Room Air Room Air 11/06/24 19:00 11/06/24 19:20 11/06/24 19:35 Temperature 97.0 F L 97.8 F Pulse Rate 93 97 101 H Pulse Rate [Left P ulse Oximeter] Respiratory Rate 16 16 18 Blood Pressure 135/98 H 135/98 H 115/94 H Blood Pressure [Le ft Arm] Pulse Oximetry 93 90 93 Oxygen Delivery Me thod Room Air Room Air Room Air 11/06/24 19:40 11/06/24 19:50 11/06/24 20:20 Temperature 97.8 F Pulse Rate 97 98 92 Pulse Rate [Left P ulse Oximeter] Respiratory Rate 18 Blood Pressure 134/80 122/79 Blood Pressure [Le ft Arm] Pulse Oximetry 92 91 Oxygen Delivery Me thod Room Air 11/06/24 23:00 11/06/24 23:00 11/06/24 23:00 Temperature Pulse Rate Pulse Rate [Left P ulse Oximeter] 103 H Respiratory Rate 18 Blood Pressure Blood Pressure [Le ft Arm] Pulse Oximetry 92 91 Oxygen Delivery Me thod Room Air 11/06/24 23:20 11/07/24 00:10 11/07/24 03:00 Temperature 98.8 F 98.8 F Pulse Rate 104 H 99 Pulse Rate [Left P ulse Oximeter] 105 H Respiratory Rate 18 16 Blood Pressure 134/72 Blood Pressure [Le ft Arm] 135/89 Pulse Oximetry 94 92 Oxygen Delivery Me thod Room Air 11/07/24 07:00 11/07/24 07:00 11/07/24 07:00 Temperature 97.7 F Pulse Rate 99 Pulse Rate [Left P ulse Oximeter] 102 H Respiratory Rate 18 18 Blood Pressure Blood Pressure [Le ft Arm] 152/78 H Pulse Oximetry 92 92 Oxygen Delivery Me thod Room Air Room Air Progress Note:A&P Assessment and plan (1) S/P right hemicolectomy: Status: Acute Plan 69-year-old male s/p laparoscopic right hemicolectomy POD 1. We will remove Retana catheter today. We will decrease his fluids to 75 mL/hour. Patient's NG is clamped and will leave it clamped until tomorrow. Patient can have sips of clears today. Patient's hemoglobin was 20 yesterday which was unusual. Questionable erroneous hemoglobin. Hemoglobin today is 13. Patient is not hypotensive but mildly tachycardic on and off. Will recheck his hemoglobin.
[2024-11-07 11:02] LABS: Hemoglobin* 13.7 gm/dL (13.5-17.5)
--- NOTE | 2024-11-07 11:51 | PM.IMPN1 ---
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 - hold aspirin while NPO and recovering from surgery - follows with Dr. Stevens through [facility] Status: Acute (6) Diabetes mellitus type 2, controlled: Problem comment: - postoperatively, holding metformin, glipizide, and Mounjaro. BG Q6H while NPO, covering with SSI - current A1C 6.7, BGs have been 130-190s - follows with Dr. Toth of [facility] as an outpatient Status: Acute Plan - per above - hospitalist team will continue to follow Subjective Date Seen: 11/07/24 Interval history: Rodolfo presented to the emergency room yesterday evening for right lower quadrant pain; imaging in ER concerning for appendicitis and also noted was a hyperdense mass/lesion at the base of the appendix. He underwent an appendectomy converted to laparoscopic R hemicolectomy with Dr. Lane of General Surgery on 11/06. Has an NG in place, guevara catheter removed this morning. Not yet passing flatus. No nausea, advancing to clear liquids today. Hospitalist team following given comorbidities (noninsulin dependent DM2, CAD, essential HTN), stable. Rodolfo has no concerns for hospitalist team this morning. Exam Narrative: Exam Narrative: GEN: Alert and oriented, answering questions appropriately HEENT: EOMIs bilaterally, no scleral icterus CV: RRR, No concerning murmurs R: LCTA bilaterally without concerning wheezing Ab: Mild distension, hypoactive bowel sounds throughout Ext: wwp, no concerning edema Skin: No concerning skin lesions or rashes on exposed skin Neuro: Nonfocal Psych: Appropriate Const: Vital Signs, click to edit/add: Vital Signs - 24 hr 11/06/24 12:00 11/06/24 12:02 11/06/24 12:15 Temperature Pulse Rate 93 93 101 H Pulse Rate [Left P ulse Oximeter] Respiratory Rate 25 H 49 H 30 H Blood Pressure 155/84 H Blood Pressure [Le ft Arm] Pulse Oximetry 96 87 L 99 Oxygen Delivery Me thod 11/06/24 12:30 11/06/24 17:42 11/06/24 17:47 Temperature 97.7 F Pulse Rate 100 99 99 Pulse Rate [Left P ulse Oximeter] Respiratory Rate 16 16 Blood Pressure 143/122 H 152/99 H Blood Pressure [Le ft Arm] Pulse Oximetry 92 97 97 Oxygen Delivery Me thod Room Air 11/06/24 17:51 11/06/24 17:56 11/06/24 18:01 Temperature Pulse Rate 100 99 97 Pulse Rate [Left P ulse Oximeter] Respiratory Rate 16 16 16 Blood Pressure 145/125 H 142/84 H 148/84 H Blood Pressure [Le ft Arm] Pulse Oximetry 94 94 94 Oxygen Delivery Me thod 11/06/24 18:06 11/06/24 18:11 11/06/24 18:16 Temperature Pulse Rate 98 97 94 Pulse Rate [Left P ulse Oximeter] Respiratory Rate 16 16 16 Blood Pressure 152/92 H 147/94 H 141/85 H Blood Pressure [Le ft Arm] Pulse Oximetry 94 92 95 Oxygen Delivery Me thod 11/06/24 18:21 11/06/24 18:30 11/06/24 18:45 Temperature 97.6 F 97.6 F 97.6 F Pulse Rate 96 94 93 Pulse Rate [Left P ulse Oximeter] Respiratory Rate 16 16 16 Blood Pressure 139/85 134/84 123/83 Blood Pressure [Le ft Arm] Pulse Oximetry 95 92 94 Oxygen Delivery Me thod Room Air Room Air Room Air 11/06/24 19:00 11/06/24 19:20 11/06/24 19:35 Temperature 97.0 F L 97.8 F Pulse Rate 93 97 101 H Pulse Rate [Left P ulse Oximeter] Respiratory Rate 16 16 18 Blood Pressure 135/98 H 135/98 H 115/94 H Blood Pressure [Le ft Arm] Pulse Oximetry 93 90 93 Oxygen Delivery Me thod Room Air Room Air Room Air 11/06/24 19:40 11/06/24 19:50 11/06/24 20:20 Temperature 97.8 F Pulse Rate 97 98 92 Pulse Rate [Left P ulse Oximeter] Respiratory Rate 18 Blood Pressure 134/80 122/79 Blood Pressure [Le ft Arm] Pulse Oximetry 92 91 Oxygen Delivery Me thod Room Air 11/06/24 23:00 11/06/24 23:00 11/06/24 23:00 Temperature Pulse Rate Pulse Rate [Left P ulse Oximeter] 103 H Respiratory Rate 18 Blood Pressure Blood Pressure [Le ft Arm] Pulse Oximetry 92 91 Oxygen Delivery Me thod Room Air 11/06/24 23:20 11/07/24 00:10 11/07/24 03:00 Temperature 98.8 F 98.8 F Pulse Rate 104 H 99 Pulse Rate [Left P ulse Oximeter] 105 H Respiratory Rate 18 16 Blood Pressure 134/72 Blood Pressure [Le ft Arm] 135/89 Pulse Oximetry 94 92 Oxygen Delivery Nm thod Room Air 11/07/24 07:00 11/07/24 07:00 11/07/24 07:00 Temperature 97.7 F Pulse Rate 99 Pulse Rate [Left P ulse Oximeter] 102 H Respiratory Rate 18 18 Blood Pressure Blood Pressure [Le ft Arm] 152/78 H Pulse Oximetry 92 92 [facility] 11/07/24 10:29 Temperature 98.9 F Pulse Rate Pulse Rate [Left P ulse Oximeter] 93 Respiratory Rate 16 Blood Pressure Blood Pressure [Le ft Arm] 132/75 Pulse Oximetry 94 Oxygen Delivery Nm thod Room Air Labs Labs: Laboratory Results - last 24 hr 11/06/24 11/06/24 11/06/24 05:38 12:35 18:50 WBC RBC Hgb Hct MCV MCH MCHC RDW Coeff of Geo Plt Count Neut % (Auto) Lymph % (Auto) [place] % (Auto) Eos % (Auto) Baso % (Auto) Neut # (Auto) Lymph # (Auto) [place] # (Auto) Eos # (Auto) Baso # (Auto) Abs Immat Gran (auto) Imm/Tot Granulo (auto) Sodium Potassium Chloride Carbon Dioxide Anion Gap BUN Creatinine Estimated Creat Clear Estimated GFR Glucose Hemoglobin A1c 6.7 H Calcium Urine Color Yellow Urine Appearance Clear Urine pH 5.5 Ur Specific [place] 1.010 Urine Protein Negative Urine Glucose (UA) 2+ A Urine Ketones Negative Urine Blood Negative Urine Nitrite Negative Urine Bilirubin Negative Urine Urobilinogen 0.2 Ur Leukocyte Esterase Negative Urine RBC 0-2 Urine WBC 0-2 Ur Squamous Epith Cells Few Urine Bacteria None Lab Acknowledgement Test Added 11/07/24 11/07/24 06:06 10:58 WBC 12.10 H RBC 4.49 Hgb 13.3 L 13.7 Hct 41.2 MCV 92 MCH 30 MCHC 32 RDW Coeff of Geo 13.6 Plt Count 209 Neut % (Auto) 83.6 H Lymph % (Auto) 7.1 L [place] % (Auto) 8.8 Eos % (Auto) 0.0 Baso % (Auto) 0.1 Neut # (Auto) 10.10 H Lymph # (Auto) 0.90 [place] # (Auto) 1.10 H Eos # (Auto) 0.00 Baso # (Auto) 0.00 Abs Immat Gran (auto) 0.00 Imm/Tot Granulo (auto) 0.4 Sodium 135 Potassium 4.1 Chloride 104 Carbon Dioxide 22 Anion Gap 9 BUN 18 Creatinine 1.1 Estimated Creat Clear 71.53 Estimated GFR 74 Glucose 151 H Hemoglobin A1c Calcium 8.3 L Urine Color Urine Appearance Urine pH Ur Specific [place] Urine Protein Urine Glucose (UA) Urine Ketones Urine Blood Urine Nitrite Urine Bilirubin Urine Urobilinogen Ur Leukocyte Esterase Urine RBC Urine WBC Ur Squamous Epith Cells Urine Bacteria Lab Acknowledgement
--- NOTE | 2024-11-07 18:22 | PC.NURSE ---
End of shift 8521-3317: Pt AxOx4, pleasant, and cooperative with cares. SBA to the bathroom. Retana removed this afternoon, Pt continent of the bladder. NG clamped this afternoon and tolerating clear liquid diet well. Denies nausea. Abdomen appears distended with hypoactive bowel sounds. Pt passing active flatus. Pt reports pain to the abdomen and throat that is relieved with inactivity, fluids, and PRN pain medication. Family at bedside during shift. Incision sites remain CDI with active ice applied. Pt appears resting in recliner with call light in reach.
[2024-11-08] VITALS (8 sets, daily range): BP systolic 130–146; BP diastolic 82–91; PULSE 92–116; RESP 16–20; TEMP 36.5–36.8; O2SAT 92–95
[2024-11-08] MEDS: HYDROmorphone 0.5 mg/0.5 ml inj IVP ×9 (02:46→22:41)
[2024-11-08] MEDS: METOPROLOL TARTRATE 1 MG/ML inj 5 MG IVP ×4 (02:46→19:46)
[2024-11-08] MEDS: phenoL 1.4 % THROAT SPRAY 1 SPRAY MUCOUS MEM (03:05)
[2024-11-08 04:19] LABS: Carcinoembryonic Antigen 1.5 ng/mL (<=3.8)
[2024-11-08] MEDS: INSULIN ASPART 100 UNIT/ML SUBCUT ×2 (06:07→23:58)
--- NOTE | 2024-11-08 07:25 | PC.NURSE ---
Pt pleasant, alert and oriented. Pt tachycardic, otherwise VSS. Midline and 3 lap sites C/D/I. Active ice applied. NG at 65 and clamped. Pain rated 8-9/10 throughout shift, prn dilaudid (roughly every 2-3 hr) provided, pt stated improvement. Pt stated discomfort in throat ice chips and throat spray provided; pt stated discomfort was more tolerable. Denies nausea. Water tolerated. Flatus present. Pt in bed, appears to be resting, call light within reach.?
--- NOTE | 2024-11-08 10:03 | PM.GSPN ---
Subjective Subjective Date Seen: 11/08/24 Interval history: Patients main complaint this morning is throat pain and pain with swallowing. Is really bothered by the NGT. Has tolerated the clamping trial with no nausea or vomiting. Having some sips of clear liquids. No appetite yet. Has passed a lot of gas. No bowel movement. Feels like distension has improved and pain in abdomen continues to get better. Has walked around the room but not yet the halls. Exam Narrative: Exam Narrative: Gen: alert and oriented, NAD HEENT: NG tube clamped and almost completely fallen out, currently at 5 cm Abdomen: Obese abdomen, moderate distension but soft to palpation. Nontender with no guarding or rebound. Midline dressings removed with itzel in place clean/dry/intact. Steri-Strips in place. Const: Vital Signs, click to edit/add: Vital Signs - 24 hr 11/07/24 10:29 11/07/24 14:20 11/07/24 14:49 Temperature 98.9 F 98.6 F Pulse Rate Pulse Rate [Left P ulse Oximeter] 93 106 H Respiratory Rate 16 18 18 Blood Pressure [Le ft Arm] 132/75 137/87 Pulse Oximetry 94 92 92 Oxygen Delivery Me thod Room Air Room Air Room Air 11/07/24 15:00 11/07/24 20:00 11/07/24 23:00 Temperature 98.2 F Pulse Rate 99 Pulse Rate [Left P ulse Oximeter] 95 Respiratory Rate 16 Blood Pressure [Le ft Arm] 143/86 H Pulse Oximetry 90 92 Oxygen Delivery Me thod Room Air 11/07/24 23:00 11/07/24 23:00 11/07/24 23:00 Temperature 97.6 F Pulse Rate 100 Pulse Rate [Left P ulse Oximeter] 105 H 105 H Respiratory Rate 18 18 Blood Pressure [Le ft Arm] 149/96 H Pulse Oximetry 90 Oxygen Delivery Me thod Room Air 11/08/24 03:20 Temperature 97.9 F Pulse Rate Pulse Rate [Left P ulse Oximeter] 107 H Respiratory Rate 18 Blood Pressure [Le ft Arm] 145/91 H Pulse Oximetry 92 Oxygen Delivery Me thod Room Air Labs/Imaging Labs Labs: No new labs. Imaging Imaging: No new imaging. Progress Note:A&P Assessment and plan (1) S/P right hemicolectomy: Status: Acute Plan 69-year-old male s/p laparoscopic right hemicolectomy POD 2. NG tube was clamped yesterday. This morning the tube is at 5 cm at the right Nare and almost completely out, this was removed at bedside. No need to replace. Okay for clear liquids. Abdomen shows persistent distension, but soft with no signs of peritonitis. Patient is reporting improvement in his abdominal pain and passage of gas. Patient was encouraged to walk the halls 6 times today. Lovenox 40 mg subQ to start this evening.
[2024-11-08] MEDS: LACTATED RINGERS 1000 ML 1,000 ML 75 ML IV (10:21)
--- NOTE | 2024-11-08 13:34 | P.IMPN_ITS ---
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, status post right hemicolectomy 11/06/2024, pathology pending -general surgeon managing -CEA 1.5 Status: Acute (3) Erythrocytosis: Problem comment: -presumably 2/2 dehydration, Hgb normalized (from 20-> 13) on 11/07 Status: Acute (4) Essential hypertension: Problem comment: -hold lisinopril and metoprolol orally while NPO, on scheduled Metoprolol currently with appropriate BP control - possibly resume 11/09 if tolerating diet Status: Acute (5) Coronary artery disease: Problem comment: - most recent stress echocardiogram 08/02/2024 reassuring with resting LVEF 55- 60%, normal response to exercise with LVEF of 65-70%. - History of [place] - hold aspirin while NPO and recovering from surgery - follows with Dr. Stevens through [facility] Status: Acute (6) Diabetes mellitus type 2, controlled: Problem comment: - postoperatively, holding metformin, glipizide, and Mounjaro. BG Q6H while NPO, covering with SSI - current A1C 6.7, BGs have been 130-190s - follows with Dr. Toth of [facility] as an outpatient Status: Acute Plan - per above, discharge pending General surgery recommendations - hospitalist team will continue to follow Total Time Spent Total Time Spent: Today I spent 55 minutes seeing the patient, reviewing Expanse and EPIC notes/diagnostics, discussing the care plan with our care time that includes social work, PT/OT, pharmacy, RT, snf and documenting my impressions and plan in the medical record. Subjective Date Seen: 11/08/24 Interval history: Patient is seen sitting up in a chair, visiting with a friend, this morning. In good humor. NGT has been removed this morning. Passing gas. Still not much of an appetite. No nausea. Denies headaches or dizziness. Denies chest pain or shortness of breath. Remains afebrile. Exam Narrative: Exam Narrative: PHYSICAL EXAM General: Pleasant, conversant, NAD HEENT: Normocephalic, atraumatic, sclera white, EOMI, oral mucosa moist Cardiovascular: RRR, S1S2. No pitting edema Pulmonary: CTA bilaterally without rhonchi, rales, expiratory wheezes. No dyspnea Abdominal: Mild distension, appropriate postoperative tenderness Neurological: Alert, answering questions appropriately, cranial nerves intact, no focal findings Extremities: No gross joint deformity or swelling. AROMI. Neurovascularly intact Skin: Warm, dry. Const: Vital Signs, click to edit/add: Vital Signs - 24 hr 11/07/24 14:20 11/07/24 14:49 11/07/24 15:00 Temperature 98.6 F Pulse Rate 99 Pulse Rate [Left P ulse Oximeter] 106 H Respiratory Rate 18 18 Blood Pressure [Le ft Arm] 137/87 Pulse Oximetry 92 92 Oxygen Delivery Me thod Room Air Room Air 11/07/24 20:00 11/07/24 23:00 11/07/24 23:00 Temperature 98.2 F 97.6 F Pulse Rate Pulse Rate [Left P ulse Oximeter] 95 105 H Respiratory Rate 16 18 Blood Pressure [Le ft Arm] 143/86 H 149/96 H Pulse Oximetry 90 92 90 Oxygen Delivery Me thod Room Air Room Air 11/07/24 23:00 11/07/24 23:00 11/08/24 03:20 Temperature 97.9 F Pulse Rate 100 Pulse Rate [Left P ulse Oximeter] 105 H 107 H Respiratory Rate 18 18 Blood Pressure [Le ft Arm] 145/91 H Pulse Oximetry 92 Oxygen Delivery Me thod Room Air 11/08/24 07:00 11/08/24 07:00 11/08/24 07:00 Temperature 97.9 F Pulse Rate 95 Pulse Rate [Left P ulse Oximeter] 99 Respiratory Rate 18 20 Blood Pressure [Le ft Arm] 146/90 H Pulse Oximetry 95 95 Oxygen Delivery Me thod Room Air Room Air 11/08/24 11:00 Temperature 97.9 F Pulse Rate Pulse Rate [Left P ulse Oximeter] 92 Respiratory Rate 18 Blood Pressure [Le ft Arm] 140/82 H Pulse Oximetry 95 Oxygen Delivery Me thod Room Air Labs Labs: Laboratory Results - last 24 hr 11/06/24 05:20 CEA (off-site) 1.5
--- NOTE | 2024-11-08 18:50 | PC.NURSE ---
End of shift [id number] - Pt alert, oriented, cooperative. Up independently in room. Tolerating RA and clear liquid diet, denies SOB and n/v. VSS and afebrile during shift. Reported pain in abdomen as 4-7/10. Medication given per MAR with pt reporting improved comfort. Family at bedside, RN observed pt to ambulate in room and halls. Dressing CDI, ice pack on site during shift. Pt appears to be resting in chair with call light within reach at end of shift.
[2024-11-08] MEDS: ENOXAPARIN 40 MG/0.4 ML INJ SUBCUT (20:54)
[2024-11-08] MEDS: HYDROCODONE-ACETAMIN 5-325 MG 1 TAB PO (23:51)
[2024-11-09] VITALS (7 sets, daily range): BP systolic 94–141; BP diastolic 76–99; PULSE 83–137; RESP 18–26; TEMP 36.8–37.6; O2SAT 91–94
[2024-11-09] MEDS: LACTATED RINGERS 1000 ML 1,000 ML 75 ML IV (00:01)
[2024-11-09] MEDS: METOPROLOL TARTRATE 1 MG/ML inj 5 MG IVP (02:57)
[2024-11-09] MEDS: HYDROCODONE-ACETAMIN 5-325 MG 1 TAB PO ×3 (05:39→18:38)
[2024-11-09] MEDS: INSULIN ASPART 100 UNIT/ML SUBCUT ×2 (06:31→21:24)
--- NOTE | 2024-11-09 06:40 | PC.NURSE ---
Pt pleasant, alert and oriented. Pt tachycardic, otherwise VSS. Midline and 3 lap sites C/D/I. Active ice applied. Pain rated 5-8/10 throughout shift, prn dilaudid and pt agreed to trial [place], pt stated improvement. States minor irritation in the throat. Encouraged to walk in halls. Denies nausea. Water tolerated. Flatus present. Pt in bed, appears to be resting, call light within reach.?
[2024-11-09] MEDS: HYDROmorphone 0.5 mg/0.5 ml inj IVP ×4 (07:09→22:40)
--- NOTE | 2024-11-09 09:44 | P.DS_ITS ---
DS: Providers Provider Date Seen: 11/10/24 Date of admission: 11/06/24 18:10 Primary care physician: Not a Local Provider Admitting Clinician: Yohan Corey MD Attending Physician on discharge: Everardo Lane MD DS: Summary Hospital Course Hospital Course: 69-year-old male was admitted to the hospital after he underwent laparoscopic appendectomy converted to right hemicolectomy for a concerning base of the appendix mass. Patient did well postoperatively. He had return of bowel function. His pain was controlled with p.o. medications. He was urinating. Patient's pathology came back as acute appendicitis with no neoplasm. Patient decompensated in several hours and was taken back to OR for ex lap. Intraoperatively anastomosis appeared viable andwihtout a leak. small bowel had dusky patches. Patient was transferred to [place] in temp abdominal closure for 2nd look laparotomy. Time Spent with Patient Time attestation: Total time spent providing and/or coordinating discharge services: Exam Narrative: Exam Narrative: Abdomen: temp abdominal closure Const: Vital Signs, click to edit/add: Vital Signs - 24 hr 11/08/24 11:00 11/08/24 14:18 11/08/24 15:00 Temperature 97.9 F Pulse Rate 116 H Pulse Rate [Left P ulse Oximeter] 92 101 H Respiratory Rate 18 Blood Pressure [Le ft Arm] 140/82 H 144/83 H Pulse Oximetry 95 Oxygen Delivery Me thod Room Air 11/08/24 15:00 11/08/24 15:00 11/08/24 19:45 Temperature 97.7 F 97.9 F Pulse Rate Pulse Rate [Left P ulse Oximeter] 107 H 98 Respiratory Rate 20 20 16 Blood Pressure [Le ft Arm] 143/87 H 143/89 H Pulse Oximetry 92 92 92 Oxygen Delivery Me thod Room Air Room Air Room Air 11/08/24 23:00 11/08/24 23:00 11/08/24 23:45 Temperature 98.2 F Pulse Rate Pulse Rate [Left P ulse Oximeter] 107 H 107 H Respiratory Rate 18 18 Blood Pressure [Le ft Arm] 130/87 Pulse Oximetry 92 92 Oxygen Delivery Me thod Room Air Room Air 11/09/24 02:58 11/09/24 07:00 11/09/24 07:00 Temperature 98.2 F Pulse Rate Pulse Rate [Left P ulse Oximeter] 91 90 Respiratory Rate 18 18 18 Blood Pressure [Le ft Arm] 126/76 Pulse Oximetry 94 93 Oxygen Delivery Me thod Room Air 11/09/24 07:00 Temperature 98.2 F Pulse Rate Pulse Rate [Left P ulse Oximeter] 90 Respiratory Rate 18 Blood Pressure [Le ft Arm] 131/77 Pulse Oximetry 93 Oxygen Delivery Me thod Room Air Discharge Plan Discharge Disposition: [facility] Discharge Location: [facility] Date of Admission: 11/06/24 18:10 Primary Care Provider: Provider,Not a Local Condition: Critical Discharge Orders: Transfer of Care to Other Hospital (ORDER); Ordered 11/11/24 Ordered By: Everardo Lane Urinary Catheter: Yes (250 shala urine at 0700)
[2024-11-09] MEDS: METOPROLOL SUCCINATE (XL) 50 MG TAB PO (10:06)
--- NOTE | 2024-11-09 11:03 | PM.IMPN1 ---
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, status post right hemicolectomy 11/06/2024, pathology pending -general surgeon managing -CEA 1.5 Status: Acute (3) Erythrocytosis: Problem comment: -presumably 2/2 dehydration, Hgb normalized (from 20-> 13) on 11/07 Status: Acute (4) Essential hypertension: Problem comment: -hold lisinopril and metoprolol orally while NPO, on scheduled Metoprolol currently with appropriate BP control - possibly resume 11/09 if tolerating diet Resuming home medications today 11/09 Status: Acute (5) Coronary artery disease: Problem comment: - most recent stress echocardiogram 08/02/2024 reassuring with resting LVEF 55-60%, normal response to exercise with LVEF of 65-70%. - History of [place] - hold aspirin while NPO and recovering from surgery - follows with Dr. Stevens through [facility] Status: Acute (6) Diabetes mellitus type 2, controlled: Problem comment: - postoperatively, holding metformin, glipizide, and Mounjaro. BG Q6H while NPO, covering with SSI - current A1C 6.7, BGs have been 130-190s - follows with Dr. Toth of [facility] as an outpatient Resume home medications on discharge Status: Acute Plan - per above, discharge pending General surgery recommendations, likely today - hospitalist team will continue to follow Total Time Spent Total Time Spent: Today I spent 45 minutes seeing the patient, reviewing Expanse and EPIC notes/diagnostics, discussing the care plan with our care time that includes social work, PT/OT, pharmacy, RT, care home and documenting my impressions and plan in the medical record. Subjective Date Seen: 11/09/24 Interval history: Patient is seen lying in bed this morning. Has a little more abdominal pain this morning believing he got behind on his pain medications. Has been tolerating his clear liquid diet without increase in pain or nausea. Tolerating oral medications. No vomiting. Passing gas. Remains afebrile. Per nursing report, general surgery plans to likely discharge patient this afternoon. Exam Narrative: Exam Narrative: PHYSICAL EXAM General: Pleasant, conversant, NAD Cardiovascular: RRR, S1S2. No pitting edema Pulmonary: CTA bilaterally without rhonchi, rales, expiratory wheezes. No dyspnea Abdominal: Mild distension, appropriate postoperative tenderness Neurological: Alert, answering questions appropriately, cranial nerves intact, no focal findings Extremities: No gross joint deformity or swelling. AROMI. Neurovascularly intact Skin: Warm, dry. Const: Vital Signs, click to edit/add: Vital Signs - 24 hr 11/08/24 14:18 11/08/24 15:00 11/08/24 15:00 Temperature Pulse Rate 116 H Pulse Rate [Left P ulse Oximeter] 101 H Respiratory Rate 20 Blood Pressure [Le ft Arm] 144/83 H Pulse Oximetry 92 Oxygen Delivery Me thod Room Air 11/08/24 15:00 11/08/24 19:45 11/08/24 23:00 Temperature 97.7 F 97.9 F Pulse Rate Pulse Rate [Left P ulse Oximeter] 107 H 98 Respiratory Rate 20 16 Blood Pressure [Le ft Arm] 143/87 H 143/89 H Pulse Oximetry 92 92 92 Oxygen Delivery Me thod Room Air Room Air Room Air 11/08/24 23:00 11/08/24 23:45 11/09/24 02:58 Temperature 98.2 F 98.2 F Pulse Rate Pulse Rate [Left P ulse Oximeter] 107 H 107 H 91 Respiratory Rate 18 18 18 Blood Pressure [Le ft Arm] 130/87 126/76 Pulse Oximetry 92 94 Oxygen Delivery Me thod Room Air 11/09/24 07:00 11/09/24 07:00 11/09/24 07:00 Temperature 98.2 F Pulse Rate Pulse Rate [Left P ulse Oximeter] 90 90 Respiratory Rate 18 18 18 Blood Pressure [Le ft Arm] 131/77 Pulse Oximetry 93 93 Oxygen Delivery Me thod Room Air Room Air
[2024-11-09] MEDS: LACTATED RINGERS 1000 ML 1,000 ML 50 ML IV (12:13)
--- NOTE | 2024-11-09 12:30 | PM.GSPN ---
Subjective Subjective Date Seen: 11/09/24 Interval history: Patient continues to pass gas but had nausea yesterday and today vomited x1. He had nausea associated with injection of IV Dilaudid. He had some clear liquid diet and had putting today. He has not been walking in the hallways. His pain is bothersome but controlled with medications. He is urinating well. Exam Narrative: Exam Narrative: Abdomen is soft, distended, tympanic to percussion with no peritoneal signs. Laparoscopic incisions and superior midline incision are covered by dry steries. Const: Vital Signs, click to edit/add: Vital Signs - 24 hr 11/08/24 14:18 11/08/24 15:00 11/08/24 15:00 Temperature Pulse Rate 116 H Pulse Rate [Left P ulse Oximeter] 101 H Respiratory Rate 20 Blood Pressure [Le ft Arm] 144/83 H Pulse Oximetry 92 Oxygen Delivery Me thod Room Air 11/08/24 15:00 11/08/24 19:45 11/08/24 23:00 Temperature 97.7 F 97.9 F Pulse Rate Pulse Rate [Left P ulse Oximeter] 107 H 98 Respiratory Rate 20 16 Blood Pressure [Le ft Arm] 143/87 H 143/89 H Pulse Oximetry 92 92 92 Oxygen Delivery Me thod Room Air Room Air Room Air 11/08/24 23:00 11/08/24 23:45 11/09/24 02:58 Temperature 98.2 F 98.2 F Pulse Rate Pulse Rate [Left P ulse Oximeter] 107 H 107 H 91 Respiratory Rate 18 18 18 Blood Pressure [Le ft Arm] 130/87 126/76 Pulse Oximetry 92 94 Oxygen Delivery Me thod Room Air 11/09/24 07:00 11/09/24 07:00 11/09/24 07:00 Temperature 98.2 F Pulse Rate Pulse Rate [Left P ulse Oximeter] 90 90 Respiratory Rate 18 18 18 Blood Pressure [Le ft Arm] 131/77 Pulse Oximetry 93 93 Oxygen Delivery Me thod Room Air Room Air 11/09/24 11:00 Temperature 98.2 F Pulse Rate Pulse Rate [Left P ulse Oximeter] 100 Respiratory Rate 18 Blood Pressure [Le ft Arm] 141/99 H Pulse Oximetry 92 Oxygen Delivery Me thod Room Air Progress Note:A&P Assessment and plan (1) S/P right hemicolectomy: Status: Acute Plan 69-year-old male s/p laparoscopic appendectomy converted to right hemicolectomy POD 3. Patient vomited today and had a couple episodes of nausea. We will hold off on advancing his diet and go back to clear liquid diet. Will check his CBC and BMP today. I talked to the patient about walking in the hallway more. We will try to control patient's pain with p.o. medication and add Toradol if his creatinine is normal. A discuss pathology results with the patient and his son. Pathology showed acute appendicitis with periappendicitis with no evidence of malignancy. Patient is not ready to be discharged.
[2024-11-09 12:38] LABS: Basophils Absolute Auto 0.02 K/uL (0.00-0.30); Basophils Percent Auto 0.3 % (0.0-3.0); Eosinophils Absolute Auto 0.08 K/uL (0.00-0.50); Eosinophils Percent Auto 1.3 % (0.0-7.0); Hematocrit 48.6 % (37.0-53.0); Hemoglobin* 15.7 gm/dL (13.5-17.5); Immature Granulocytes Abs Auto 0.03 K/uL (0.00-0.30); Immature Granulocytes Pct Auto 0.5 %; Lymphocytes Percent Auto 3.8 % (20-44); Mean Corpuscular HGB Conc 32 gm/dL (32-36); Mean Corpuscular Hemoglobin 30 pg (26-34); Mean Corpuscular Volume 92 fL (80-100); Monocytes Percent Auto 9.3 % (0.0-11.0); Neutrophils Percent Auto 84.8 % (42.0-72.0); Platelet Count* 261 K/uL (140-440); Red Blood Count 5.27 m/uL (4.30-5.90)
[2024-11-09 12:48] LABS: Chloride* 97 mmol/L (96-114); Potassium* 4.7 mmol/L (3.6-5.1); Sodium* 137 mmol/L (135-149)
[2024-11-09 12:51] LABS: Blood Urea Nitrogen* 27 mg/dL (7-30); Creatinine* 1.2 mg/dL (0.5-1.5); Est. Creatinine Clearance* 65.56; Estimated Glomerular Filt Rate 66 ml/min
[2024-11-09 12:52] LABS: Anion Gap 15 mEq/L (7-15); Calcium* 9.6 mg/dL (8.4-10.6); Carbon Dioxide* 25 mmol/L (20-32); Glucose* 201 mg/dL (60-115)
[2024-11-09 12:55] LABS: Slide Review Reflex No
[2024-11-09] MEDS: ONDANSETRON 2 MG/ML inj 4 MG IVP (14:10)
[2024-11-09] MEDS: KETOROLAC 15 MG/ML inj IVP (16:31)
[2024-11-09] MEDS: glipiZIDE 5 MG TABLET 20 MG PO (18:39)
--- NOTE | 2024-11-09 19:45 | PC.NURSE ---
End of shift: patient c/o pain and Nausea. Patient had x2 Emesis of 600cc total. MD notified both times. Patient encouraged to be NPO until nausea resolves. Patient encouraged to ambulate the halls for pain management and to help reduce gas pains. Patients midline and steri strips intact. Patients abd. large and firm. Patient reports passing gas and had a very small soft BM. Patient voiding well.
--- NOTE | 2024-11-09 20:10 | CRLHL7_ITS ---
For Patients: As a result of the Century Cures Act, medical imaging exams and procedure reports are released immediately into your electronic medical record. You may view this report before your referring provider. If you have questions, please contact your health care provider. INDICATION: Abdominal pain, recent surgery.. TECHNIQUE: CT abdomen and pelvis without contrast. COMPARISON: None. FINDINGS: Limited evaluation of the intra-abdominal solid organs without IV contrast. Lower chest: Right lower lobe linear atelectasis. Liver: Stable cyst versus hemangioma in the right hepatic lobe. Gallbladder and bile ducts: Dense material in the gallbladder may reflect gallbladder sludge. Probable tiny stones. No gallbladder wall thickening or pericholecystic fluid. Pancreas: Unremarkable. No mass or inflammation. Spleen: Normal in size. No masses. Adrenal glands: Normal in size. No nodules. Kidneys: Normal in size. No suspicious masses, stones, or hydronephrosis. GI tract: Probable recent appendectomy and partial cecectomy. Postsurgical changes and anastomosis noted in the right lower quadrant. Mild adjacent fat stranding is identified. No focal fluid collections. Multiple clips in the right lower quadrant. Fluid-filled loops of small bowel which are mildly distended. No definite transition point identified. This extends distally to the right lower quadrant and tapers gradually. Fluid within the large bowel is also noted. Vasculature: Abdominal aorta is normal in caliber. Lymph nodes: No lymphadenopathy. Peritoneum/Abdominal Wall: Subcutaneous edema especially along the left lower abdomen and left flank. There is subcutaneous gas dissecting along the fascial planes along the left abdominal wall. Cutaneous itzel in the midline. Mild intra-abdominal free air. No significant intra-abdominal free fluid. Small bilateral fat containing inguinal hernias. Pelvis: Bladder is decompressed. Prostate is borderline enlarged. Bones: Unremarkable for age. IMPRESSION: 1. Mildly dilated loops of small bowel which gradually taper likely related to ileus. 2. Postsurgical changes with mild surrounding inflammatory stranding in the right lower quadrant. No focal drainable fluid collections. 3. Minimal atelectasis. Please note that all CT scans at this facility use dose modulation, iterative reconstruction, and/or weight-based dosing when appropriate to reduce radiation dose to as low as reasonably achievable. Dictated by Selvin Mota MD @ 11/09/2024 9:05:24 PM (Electronically Signed)
[2024-11-09] MEDS: 0.9 % SODIUM CHLORIDE 500 ML 500 ML IV (20:36)
[2024-11-09 21:01] LABS: Hematocrit 45.4 % (37.0-53.0); Hemoglobin* 14.9 gm/dL (13.5-17.5); Immature Granulocytes Pct Auto 1.6 %; Lymphocytes Percent Auto 4.3 % (20-44); Mean Corpuscular HGB Conc 33 gm/dL (32-36); Mean Corpuscular Hemoglobin 29 pg (26-34); Mean Corpuscular Volume 90 fL (80-100); Monocytes Percent Auto 15.2 % (0.0-11.0); Neutrophils Percent Auto 78.9 % (42.0-72.0); Platelet Count* 231 K/uL (140-440); Red Blood Count 5.06 m/uL (4.30-5.90); White Blood Count* 4.42 K/uL (4.50-11.00)
[2024-11-09 21:03] LABS: Slide Review Reflex No
[2024-11-09 21:04] LABS: Lactate* 5.8 mmol/L (0.5-1.9)
[2024-11-09 21:09] LABS: Chloride* 95 mmol/L (96-114); Potassium* 4.2 mmol/L (3.6-5.1); Sodium* 132 mmol/L (135-149)
[2024-11-09 21:12] LABS: Anion Gap 16 mEq/L (7-15); Blood Urea Nitrogen* 36 mg/dL (7-30); Calcium* 9.3 mg/dL (8.4-10.6); Carbon Dioxide* 21 mmol/L (20-32); Est. Creatinine Clearance* 39.34; Estimated Glomerular Filt Rate 36 ml/min; Glucose* 223 mg/dL (60-115)
--- NOTE | 2024-11-09 21:21 | PM.EN ---
Chart Event Note Time Seen by Provider: 20:30 Date Seen: 11/09/24 Chart Event Note: Rodolfo was noted to be more confused during evening VS; upon my evaluation was improved. Temperature 99.7, BP 113/77 Exam: PERRL, tongue protrudes midline. No pronator drift CV: sinus tachycardia, HR 130s Ab: distended, tolerates palpation, pain not worse than previous IVF bolus, labs, CT ordered - CT: mildly dilated loops of small bowle, likely ileus + postsurgical changes - labs: Creatinine 2.0 (previously 1.2), lactate 5.8, Na of 132, K of 4.[address] Dowling of [facility]. Plan: Replace NG, guevara to monitor Is/Os closely, continue IVF bolus, Zosyn, repeat lactate 2 hours, close monitoring. Patient aware of plan.
[2024-11-09 21:24] LABS: Troponin I* 0.03 ng/mL (0.01-0.04)
[2024-11-09] MEDS: ENOXAPARIN 40 MG/0.4 ML INJ SUBCUT (21:24)
--- NOTE | 2024-11-09 21:32 | P.EN_ITS ---
Chart Event Note Chart Event Note: Patient is POD#3 from right hemicolectomy for appendiceal mass. He vomited this afternoon x 2 and so discharge was canceled. This evening, he has changed acutely. Since then he has become increasingly tachycardic, also now wlth low- grade fever. Repeat labs show lactate of 5.8, WBC is decreasing with elevated neutrophils. Cre also increased to 2.2. Patient has been passing gas. I have concerns for sepsis. most likely source is intra-abdominal, however, CT scan without contrast shows expected findings for POD#3 - ileus, small intra- abdominal air, subcutaneous gas on left abdomen from laparoscopy. No obvious findings of anastomotic leak. Ileus type picture also not unexpected. Reviewed operative note. Discussed with hospitalist. Will plan on fluid resuscitation - HR improved after bolus of 500 cc, NG tube, Retana to strictly monitor I/O. Consider CT chest/abdomen with PO and IV contrast - though with elevated Cre, would like to avoid this. If patient's picture does not improve, may need exploration to rule out anastomotic leak or missed injury. Will plan on fluids and repeat lactate with close monitoring of patient's clinical status over the next 2 hours.
--- NOTE | 2024-11-09 21:36 | CRLHL7_ITS ---
For Patients: As a result of the Century Cures Act, medical imaging exams and procedure reports are released immediately into your electronic medical record. You may view this report before your referring provider. If you have questions, please contact your health care provider. INDICATION: Tube placement. TECHNIQUE: Abdominal radiograph, 1 view. COMPARISON: CT abdomen pelvis 11/09/2024. FINDINGS: Lower chest: Unremarkable. Bowel: Enteric tube and side port projecting over the gastric lumen, satisfactory position. Distended loops of bowel, within normal limits, better characterized on same day CT. Soft tissues: Unremarkable. Surgical clips overlying the left mid abdomen. Bones: No acute osseous abnormalities. Mild degenerative changes of the lumbar spine. IMPRESSION: Enteric tube in satisfactory position. Dictated by Dayne Douglas MD @ 11/10/2024 12:00:03 AM (Electronically Signed)
[2024-11-09] MEDS: LORazepam 2 MG/ML inj 0.5 MG IVP (21:48)
[2024-11-09] MEDS: PIPERACILLIN/TAZOBACTAM 3.375 GM in 0.9 % SODIUM CHLORIDE Mini-bag 100 ML IVPB (22:22)
[2024-11-09 23:10] LABS: Lactate* 4.1 mmol/L (0.5-1.9)
[2024-11-09] MEDS: lidocaine HCL 2 % JELLY (TOP) STERILE 6 ML UR (23:23)
[2024-11-09] MEDS: LACTATED RINGERS 1000 ML 1,000 ML 500 ML IV (23:24)
[2024-11-10] MEDS: HYDROmorphone 0.5 mg/0.5 ml inj IVP ×3 (00:03→02:50)
[2024-11-10 00:30] VITALS: BP 146/77; PULSE 122; RESP 18; TEMP 37
[2024-11-10 01:00] VITALS: BP 152/71; PULSE 93; RESP 18; TEMP 37.8; O2SAT 91
[2024-11-10 01:30] VITALS: BP 152/71; PULSE 86; RESP 22; TEMP 37.9; O2SAT 96
[2024-11-10] MEDS: ONDANSETRON 2 MG/ML inj 4 MG IVP (01:57)
[2024-11-10] MEDS: LACTATED RINGERS 1000 ML 1,000 ML IV ×2 (01:58→03:30)
[2024-11-10 02:00] VITALS: BP 126/76; PULSE 113; RESP 22; TEMP 37.9; O2SAT 94
[2024-11-10 02:30] VITALS: BP 135/69; PULSE 113; RESP 22; TEMP 38.4; O2SAT 95
[2024-11-10 02:36] LABS: Lactate* 4.3 mmol/L (0.5-1.9)
[2024-11-10 02:38] VITALS: TEMP 37.9
[2024-11-10] MEDS: ACETAMINOPHEN INJ 1,000 MG/100 ML VIAL 400 MG IVPB (02:38)
[2024-11-10 02:49] LABS: Chloride* 96 mmol/L (96-114)
[2024-11-10 02:50] LABS: Potassium* 3.5 mmol/L (3.6-5.1); Sodium* 132 mmol/L (135-149)
[2024-11-10 02:52] LABS: Blood Urea Nitrogen* 40 mg/dL (7-30); Creatinine* 1.6 mg/dL (0.5-1.5); Est. Creatinine Clearance* 49.17; Estimated Glomerular Filt Rate 47 ml/min
[2024-11-10 02:53] LABS: Anion Gap 11 mEq/L (7-15); Calcium* 8.6 mg/dL (8.4-10.6); Carbon Dioxide* 25 mmol/L (20-32); Glucose* 168 mg/dL (60-115)
--- NOTE | 2024-11-10 03:15 | P.EN_ITS ---
Chart Event Note Date Seen: 11/10/24 Chart Event Note: Overnight, while Rodolfo's lactate initially began to trend down, recheck remained at 4. He has received 2 L of fluid and tachycardia has improved, however he has become increasingly febrile, most recent temperature was 101?. Abdominal pain is improved after NG was placed with 2200 out. Also had a large watery bowel movement. A Retana was placed to track I/O. He is making approximately 30 mL an hour for the last 3 hours. He is currently getting his 3 L of fluid. He complains of a dry mouth. States that his abdominal pain has improved since NG was placed. Creatinine has come down to 1.6 from 2. BUN has increased to 40 from 36. He is hypokalemic with potassium of 3.5. Also hyponatremic at 132. -lactate was 5.8 at 840, this trended down to 4.1 at 10:45 p.m., however repeat after 2 L of fluid was 4.3. -as discussed in my previous note, CT scan of the abdomen showed mild fat stranding around the anastomosis without focal fluid collections. He had distended loops of small bowel and mild intra-abdominal free air. These findings would be expected postoperatively. The CT, however was done without contrast. -the patient's condition has continued to deteriorate despite resuscitation and antibiotics. He is not short of breath and EKG shows sinus tachycardia. I discussed with the patient and his son the differential which includes an intra- abdominal process such as missed injury or anastomotic leak. We also discussed pulmonary embolus, which would be less likely to cause vomiting and abdominal distension as he is having, but certainly could cause tachycardia and fever. He did have 1 large watery bowel movement - and C diff is also in the differential. It appears as though he did only receive Zosyn perioperatively x1. I explained that given his worsening clinical picture I thought that it would be more pertinent to explore his abdomen rather than continue to wait until we could collect another stool sample. The patient and his son were in agreement. CT scan was done without contrast and so given the elevated lactate, mesenteric ischemia is also possible. With his episodes of vomiting earlier, aspiration is also in the differential which could cause fever and tachycardia, however he is not short of breath and is satting in the 90s on room air. I would not expect his lactate to be elevated in this setting. On exam, the patient appears fatigued, is warm to the touch and sweaty. He complains of a dry mouth. NG has 2200 mL of bilious output. Abdominal x-ray shows NG in good position. Retana with urine in the bag, mildly concentrated appearing however not significantly dark. Abdomen is distended but soft. His abdomen is not significantly tender on exam, however, given his clinical picture of sepsis with the most likely source pointing to his abdomen, I still do think it is necessary to explore the abdomen. We discussed the procedure as well as risks. He understands that there is a possibility I may need to resect additional bowel and he may need a temporary diverting ostomy. He agreed to proceed and we will plan on surgery urgently.
[2024-11-10] MEDS: LACTATED RINGERS 1000 ML 1,000 ML 100 ML IV (03:53)
[2024-11-10 03:56] LABS: Basophils Percent Auto 0.3 % (0.0-3.0); Hematocrit 36.6 % (37.0-53.0); Hemoglobin* 12.1 gm/dL (13.5-17.5); Immature Granulocytes Pct Auto 2.8 %; Lymphocytes Percent Auto 5.4 % (20-44); Mean Corpuscular HGB Conc 33 gm/dL (32-36); Mean Corpuscular Hemoglobin 30 pg (26-34); Mean Corpuscular Volume 89 fL (80-100); Monocytes Percent Auto 15.8 % (0.0-11.0); Neutrophils Percent Auto 75.7 % (42.0-72.0); Platelet Count* 204 K/uL (140-440); RDW Coefficient of Variation % 13.1 % (11.5-15.5); White Blood Count* 3.55 K/uL (4.50-11.00)
[2024-11-10 03:57] LABS: Lactate* 3.8 mmol/L (0.5-1.9); Slide Review Reflex Yes
[2024-11-10 04:14] LABS: Chloride* 97 mmol/L (96-114); Potassium* 3.4 mmol/L (3.6-5.1); Sodium* 131 mmol/L (135-149)
[2024-11-10 04:17] LABS: Blood Urea Nitrogen* 38 mg/dL (7-30); Creatinine* 1.4 mg/dL (0.5-1.5); Estimated Glomerular Filt Rate 55 ml/min
[2024-11-10 04:18] LABS: Anion Gap 10 mEq/L (7-15); Calcium* 8.2 mg/dL (8.4-10.6); Carbon Dioxide* 24 mmol/L (20-32); Glucose* 159 mg/dL (60-115); Slide Review Acceptable Review (Acceptable)
[2024-11-10] MEDS: PIPERACILLIN/TAZOBACTAM 3.375 GM in 0.9 % SODIUM CHLORIDE Mini-bag 100 ML IVPB (05:00)
--- NOTE | 2024-11-10 05:12 | PC.NURSE ---
Patient was in an altered mental status upon my initial assessment and not vitally stable. His abdomen was taught and hallow to percussion. He was unable to answer my question as to how his abdomen felt, finding it extremely difficult to find words. Visually he appeared unwell. I immediately notified my preceptor and the in-house MD. Orders received for an NG tube and guevara placement which were then carried out; the patient being on sepsis watch. EKG done. Sinus tachycardia with PVCs. NG tube produced 2200 ml's of light, almost neon green fluid. Small amounts of output from his catheter despite boluses being given. One episode of the patient attempting to get up from bed resulted in an IV removal and the decoupling of the NG tube from the wall. Mentation remained altered. Surgical team notified about lack of progress and a surgical intervention was decided upon. Went down for pre-op at 0345.?
--- NOTE | 2024-11-10 06:47 | PM.GSPRC ---
Operative Note Date of procedure: 11/10/24 Pre-op diagnosis: 1. Status post right hemicolectomy 2. Postoperative fever and lactic acidosis Post-op diagnosis: 1. Status post right hemicolectomy 2. Postoperative fever and lactic acidosis 3. Bowel ischemia Type of Procedure: 1. Exploratory laparotomy, reopening of recent incision 2. Temporary abdominal closure Indications: The patient is a 69-year-old male who underwent a laparoscopic right hemicolectomy for acute appendicitis with involvement and mass of the appendiceal base. Fortunately pathology returned showing acute appendicitis without evidence of malignancy. The patient had been progressing, however on postoperative day 3 he developed vomiting and abdominal distension. He was made NPO. Later in the evening he developed tachycardia. Workup revealed sinus tachycardia, however labs were remarkable for a lactate of 5.8 and creatinine of 2.2. The patient had worsening abdominal pain and also underwent a noncontrast CT scan of his abdomen which showed a small amount of intra-abdominal air, fluid and inflammation around the anastomosis, all consistent with a CT scan on postoperative day 3. He was given 2 L of IV fluids, a Retana catheter was placed and an NG tube was placed. He had over 2 L out on his NG. His tachycardia improved to the low 100s. Initially urine output was minimal. Repeat lactate 2 hours later was 4. An additional bolus was given and urine output improved, however repeat lactate early in the morning remained for and the patient developed a temperature of 101?. He did have 1 loose stool during this time. Because of persistent elevated lactate and fever, I had concern for intra-abdominal process such as anastomotic leak, bowel ischemia or possibly C difficile infection. I discussed with the patient and his son and I recommended exploration. They agreed to proceed. Procedure Description: After discussing the risks and benefits of the procedure, the patient signed informed consent.? The operative site was marked and the patient was brought to the operating room and placed on the operating table in supine position.? Care was taken to pad the patient's pressure points.?? The patient was then intubated by anesthesia.?? The operative site was then prepped and draped in the usual sterile fashion.? A time-out was then performed. The patient's itzel were removed and the skin incision was open. The fascial sutures were then cut and removed. The abdomen was then entered. An Jono wound protector was then placed into the wound. Initially the omental fat appeared normal. There was murky, bloody fluid in the abdomen particularly in the right lateral abdomen. A specimen was obtained and sent for culture, however it did not appear consistent with succus. The small bowel was eviscerated and run proximally. I noted that very quickly the bowel appeared ischemic and so it was placed back into the abdomen where it pinked up. I extended the incision for 2 cm towards the umbilicus. I then was able to pull the anastomosis into view. There was some discolored fat over the top of the anastomosis, however there was no leakage of succus or stool. There were no openings that were appreciated. The anastomosis was palpated and found to be widely patent. There had been an area that was oversewn at the posterior aspect of the colon below the anastomosis per the original op note. This area was identified. There was no leakage of stool from here. I then ran the bowel proximally. 50 cm from the anastomosis, the patient had 2 parallel area of dusky ischemia of measuring approximately 1 cm extending across the anti mesenteric border of the bowel. 10 cm proximal to this he had an additional area, with 3 spots of purple ischemia on the anti mesenteric border, each measuring 1 cm in width. Proximal to this he had 60 cm of small bowel that appeared perfused and viable, however had subtle signs of faint dusky ischemia and injection. There were approximately 140 cm of small bowel proximal to this extending to the ligament of Treitz which was normal. The majority the bowel appeared viable except those 2 small areas in the ileum. ICG was administered by Anesthesia and the bowel was examined. The small bowel appeared well perfused, however these 5 areas described above still appeared dusky. The bowel was placed into the abdomen and we waited. In the meantime I examined visible colon. There did not appear to be any overt abnormalities. Urine output appeared to be improving slightly. Vital signs were stable. The patient had labs drawn again immediately prior to the OR. Lactate had come down slightly but only to 3.8. I re-examined the small bowel after 20 minutes, it appeared unchanged. The bowel was not frankly necrotic, however the area was concerning enough that I did not think the abdomen could be closed. I also did not want to resect the bowel given the viable though likely recently ischemic adjacent small bowel which would need to be anastomosed. I discussed the case with my colleague who was able to review an image of the bowel. We agree that the patient would benefit from additional time, with resuscitation and a second-look procedure. I was able to discussed with the interceptor operator and surgeon on-call at [facility] who agreed to accept the patient for transfer with an open abdomen for a second-look operation. Discussed with the patient's son who was agreeable with this plan. At this point, approximately 1 hour had passed since I 1st examined the bowel. I then re-examined the 2 areas. They appeared slightly improved. ICG was administered a 2nd time, however again there demonstrated decreased perfusion to these several small areas. I then placed a temporary abdominal closure, using a portion of a sterile cassette drape over the patient's bowel and placing a 24 K[place] chest tube between layers of a single green towel. This was then covered with IO band and hooked to wall suction. The patient remained intubated and a drill transfer can be arranged. ? The patient remained stable throughout the procedure Findings: 1. Murky fluid in the abdomen 2. Anastomosis without clear leak 3. Distal small bowel with patchy areas of ischemia, without enough improvement to close the abdomen. Anesthesia: GETA Surgeon: Estefany Dowling MD Estimated blood loss (mL): 5 Specimen: Other Additional Specimen Information: Abdominal fluid for culture Disposition: other (Transfer to [facility])
--- NOTE | 2024-11-10 07:12 | SUR.OPER ---
Pt abdomen left open and transfer arranged. Pt is transferring to [facility] via ground transport and will remain intubated. UOP at 0700 was 250 with shala color urine and Retana bag was emptied
--- NOTE | 2024-11-10 08:04 | P.ANES_ITS ---
Anesthesia Charges Start Date/Time Anesthesia Start Date: 11/10/24 Anesthesia Start Time: 03:53 Stop Date/Time Anesthesia Stop Date: 11/10/24 Anesthesia Stop Time: 07:53 Summary Emergency: STONER OUT Coding CPT Codes CPT Codes: ANESTH SURG LOWER ABDOMEN - 07383 ([id number]) P3 - PATIENT W/SEVERE SYS DISEASE, QZ - STONER OUT SVC W/O HEALTHCARE SCIENCE SPECIALIST BY Additional Codes: Summary - Emergency: STONER OUT ([id number])
--- NOTE | 2024-11-10 08:04 | W.ANESCHARGE ---
Anesthesia Charges Start Date/Time Anesthesia Start Date: 11/10/24 Anesthesia Start Time: 03:53 Stop Date/Time Anesthesia Stop Date: 11/10/24 Anesthesia Stop Time: 07:53 Summary Emergency: ANIMAL NUTRITIONIST Coding CPT Codes CPT Codes: ANESTH SURG LOWER ABDOMEN - 69406 ([id number]) P3 - PATIENT W/SEVERE SYS DISEASE, QZ - ANIMAL NUTRITIONIST SVC W/O SENIOR VICE PRESIDENT BY Additional Codes: Summary - Emergency: ANIMAL NUTRITIONIST ([id number])
--- NOTE | 2024-11-15 12:57 | PC.NURSE ---
I entered patient's chart to print a copy of intra-abdominal culture results per request of Dr. Dowling.
== END 2024-11-10 07:53 | disposition short-term general hospital (02) | DRG 221 ==
LOC: ED 12:41 → SS 12:57 → MEDSURG 18:54
PROVIDERS: Family Medicine; Internal Medicine; Physician Assistant; Surgery; Admitting Provider Family Medicine; Emergency Provider Family Medicine; Visit Provider Surgery
PROC: 0DTJ4ZZ Resection of Appendix, Percutaneous Endoscopic Approach (ICD-10-PCS; CPT 44970; principal; 2024-11-06 13:00)
PROC: 0DJD0ZZ Inspection of Lower Intestinal Tract, Open Approach (ICD-10-PCS; CPT 49000; principal; 2024-11-10 03:45)
DX: K35.80 Unspecified acute appendicitis (principal); G89.18 Other acute postprocedural pain; K55.019 Acute (reversible) ischemia of small intestine, extent unspecified; E87.21 Acute metabolic acidosis; I97.191 Other postprocedural cardiac functional disturbances following other surgery; R00.0 Tachycardia, unspecified; R50.82 Postprocedural fever; E87.6 Hypokalemia; K59.89 Other specified functional intestinal disorders; E87.1 Hypo-osmolality and hyponatremia; E11.9 Type 2 diabetes mellitus without complications; I49.3 Ventricular premature depolarization; I10 Essential (primary) hypertension; I25.10 Atherosclerotic heart disease of native coronary artery without angina pectoris; D75.1 Secondary polycythemia; I25.2 Old myocardial infarction; Z79.85 Long-term (current) use of injectable non-insulin antidiabetic drugs; Z79.84 Long term (current) use of oral hypoglycemic drugs; Z79.82 Long term (current) use of aspirin; E78.5 Hyperlipidemia, unspecified; Z95.5 Presence of coronary angioplasty implant and graft
CPT/HCPCS: 00840; 36415; 64488; 71045; 74018; 74176; 74177; 76942; 80048; 80076; 81001; 82378; 82962; 83036; 83605; 83735; 83880; 84484; 85018; 85025; 87040; 87070; 87075; 87205; 87493; 88307; 93005; 94761; 99140; 99284; 99285; A4314; A9270; J0131; J0330; J0665; J0666; J1100; J1171; J1650; J1885; J2060; J2371; J2405; J2543; J2704; J3010; J3475; J3490; J7030; J7120; Q9967

== ENCOUNTER 2024-11-10 07:19 | Outpatient (CLI) | payer BC, SELFPAY ==
--- OUTSIDE RECORDS SUMMARY | 2024-11-11 15:53 | XMS_ITS | Clinical Summary ---
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 0 07/30/19 14 Suspended atorvastatin (LIPITOR) 40 mg tablet Take 1 tablet by mouth at bedtime. 30 tablet 3 4 5:42 PM [employer]C 07/30/19 14 Suspended clopidogrel (PLAVIX) 75 mg tablet Take 1 tablet by mouth every morning. Continue plavix for 1 year without interruption. 30 tablet 11 4 5:42 PM [employer] 07/30/19 14 025 Discontinued (Pharmacist change per medication history (E-cancel not sent)) nitroglycerin (NITROSTAT) 0.[address] 1 tablet under the tongue every 5 minutes if needed for Chest Pain (For chest pain x 3 doses.). 25 tablet 3 4 5:42 PM [employer] 07/30/19 14 Suspended nicotine 21 mg/24 hr (NICODERM; HABITROL) 21 mg/24 hr patch Apply 1 Patch on dry, clean, hairless skin once daily. 42 Patch 0 08/01/19 14 025 Discontinued (Pharmacist change per medication history (E-cancel not sent)) lisinopril (PRINIVIL; ZESTRIL) 5 mg tablet Take 1 tablet by mouth once daily. 30 tablet 0 05/28/20 14 025 Discontinued (Pharmacist change per medication history (E-cancel not sent)) metoprolol succinate SR (TOPROL XL) 50 mg Sustained-Relea se tablet Take 1 tablet by mouth once daily. 30 tablet 0 10/20/19 14 Suspended gabapentin 100 mg capsule Take 200 mg by mouth at bedtime if needed (bedtime prn). 04/06/20 24 Suspended empagliflozin 10 mg tablet Take 10 mg by mouth once daily. 08/03/19 25 Suspended cyanocobalamin 1,000 mcg tablet Take 1,000 mcg by mouth once daily. Suspended glipiZIDE 10 mg tablet Take 20 mg by mouth two times daily before meals. 08/03/19 Suspended losartan 25 mg tablet Take by mouth. Take 2 tablets (50 mg) by mouth daily (with breakfast) AND 1 tablet (25 mg) at bedtime 10/04/19 Suspended metFORMIN 500 mg Extended-Releas e tablet Take 1,000 mg by mouth two times daily. Suspended Ozempic 2 mg/dose (8 mg/3 mL) subcutaneous pen Inject 2 mg subcutaneous once weekly. 07/06/19 25 025 Discontinued (Pharmacist change per medication history (E-cancel not sent)) tirzepatide 12.5 mg/0.5 mL pen Inject 12.5 mg subcutaneous once weekly. 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 Acute respiratory failure with hypoxia Acute VT 07/29/2013 Tobacco abuse 07/29/2013 ASTIGMATISM REGULAR 09/17/2005 Presbyopia 09/17/2005 Myopia 09/17/2005 Headache(784.0) 03/20/2000 EXAMINATION, ROUTINE MEDICAL 09/20/1999 Encounters Date Type Department Care Team Description 11/11/2024 11:25 AM CDT Anesthesia Event [facility] [address] [place] [address] Yeison Lo MD Teague, Kathryn, DO 11/11/2024 11:00 AM CDT - 11/11/2024 2:14 PM CDT Surgery [facility] [address] [place] [address] Dale Landin MD RE-OPEN RECENT LAPAROTOMY SITE 11/10/2024 8:56 AM CDT - Present Hospital Encounter [facility] [address] [place] [address] Génesis Gutierrez, Maurice Cody MD Paz, William Andrews MD 11/07/2024 Lab Requisition [facility] [phone] MD from Last 3 Months Immunizations Immunization Administration Dates Next Due Tdap [...] on file Legal Sex Male 5:24 AM [employer] Gender Identity Not on file Sexual Orientation Not on file 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 User may not have seen previous data. Inhaled Oxygen Concentration - - Weight 101.7 kg (224 lb 3.3 oz) 11/11/2024 12:00 AM CDT Height 182.9 cm (6') 11/10/2024 9:00 AM CDT Body Mass Index 30.41 11/10/2024 9:00 AM CDT Plan of Treatment Scheduled Procedures Name Priority Associated Diagnoses Date/Ti me LAPAROTOMY EXPLORATION Class D Urgent 11:30 AM CDT RESECTION COLON SMALL BOWEL Class D Urgent 11/11/2024 11:30 AM CDT Health Maintenance Due Date Last Done Comments Depression screening for age 12+ 1969 BMI (ht and wt on same day) for age 18+ 1975 Hepatitis C screening for ag e 18-79 1975 Pneumococcal series for age 50+ (1 of 2 - PCV) 1976 Colonoscopy through age 75 2002 Zoster (shingles) series for age 50+ (1 of 2) 2007 RSV vaccine for adults or (1 - Risk 60-74 years 1-dose series) 2017 Tetanus booster 10/20/2017 10/21/2007 Lipids for age 45-75 07/30/2018 07/30/2013 AAA screening age 65-74 2022 COVID-19 vaccine series ( season) 2024 09/08/2020, 08/18/2020 Influenza Vaccine (Season Ended) 2025 Tdap Completed 10/21/2007 Hepatitis B series for 19+ Aged Out N o longer eligible based on patient's age to complete this topic Goals Goal Patient Goal Type Associated Problems Recent Progress Patient-Stated? Author Autogenera maksim Goal Care Plan Autogenerated Problem No Mona Rubio Procedures * The patient is currently admitted. The information in this section might not be complete until the patient is discharged. Procedure Name Priority Date/Time Associated Diagnosis Comments SCAN-CARDIAC STRIP 11/11/2024 3: 22 PM CDT XR CHEST 1 VIEW PORTABLE STAT 11/11/2024 2:43 PM CDT GLUCOSE METER Timed 11/11/2024 1:31 PM CDT [facility] KIT PR5 Routine 11/11/2024 12:16 PM CDT [facility] DRSG PR5 Routine 11/11/2024 12:16 PM CDT [facility] DRSG PR1 Routine 11/11/2024 12:16 PM CDT [facility] TUBING PR20 Routine 11/11/2024 12:1 6 PM CDT [facility] TUBING PR1 Routine 11/11/2024 12:16 PM CDT [facility] ANES US GUIDE FOR VASC ACCESS Routine 11/11/2024 12:16 PM CDT [facility] CATH INFUSION PR10 Routine 11/11/2024 12:16 PM CDT SCAN CORRESP-IMAGING 11/11/2024 11:52 AM CDT GLUCOSE METER Timed 11/11/2024 9:17 AM CDT SCAN-CARDIAC STRIP 11/11/2024 8: 00 AM CDT LACTATE VENOUS JOHANNE 11/11/2024 7:52 AM CDT GLUCOSE METER Timed 11/11/2024 6:36 AM CDT LACTATE VENOUS JOHANNE 11/11/2024 5:24 AM CDT PHOSPHORUS Early AM 11/11/2024 5:17 AM CDT MAGNESIUM Early AM 11/11/2024 5:17 AM CDT BASIC METABOLIC PANEL Early AM 11/11/2024 5:17 AM CDT CBC W PLT NO DIFF Early AM 11/11/2024 5:1 7 AM CDT CK TOTAL Timed 11/11/2024 5:17 AM CDT TRIGLYCERIDES Timed 11/11/2024 5:17 AM CDT GLUCOSE METER Timed 11/11/2024 2:02 AM CDT SCAN-CARDIAC STRIP 11/11/2024 12 :00 AM CDT LACTATE VENOUS Timed 11/10/2024 11:47 PM CDT GLUCOSE METER Timed 11/10/2024 10:06 PM CDT LACTATE VENOUS Timed 11/10/2024 9:31 PM CDT HEMOGLOBIN Today 11/10/2024 6:16 PM CDT LACTATE VENOUS Timed 11/10/2024 6:16 PM CDT GLUCOSE METER Timed 11/10/2024 5:14 PM CDT LACTATE VENOUS Timed 11/10/2024 4:27 PM CDT GLUCOSE METER Timed 11/10/2024 2:14 PM CDT LACTATE VENOUS Timed 11/10/2024 1:21 PM CDT BLOOD GAS,VENOUS Timed 11/10/2024 1:21 PM CDT GLUCOSE METER Timed 11/10/2024 10:34 AM CDT SCAN-CARDIAC STRIP 11/10/2024 9: 49 AM CDT TYPE & SCREEN STAT 11/10/2024 9:39 AM CDT MAGNESIUM STAT 11/10/2024 9:39 AM CDT PHOSPHORUS STAT 11/10/2024 9:39 AM CDT LACTATE VENOUS STAT 11/10/2024 9:39 AM CDT BLOOD GAS,VENOUS STAT 11/10/2024 9:39 AM CDT PROTIME-INR STAT 11/10/2024 9:39 AM CDT HEPATIC FUNCTION PANEL STAT 9:39 AM CDT BASIC METABOLIC PANEL STAT 11/10/2024 9:39 AM CDT CBC W PLT NO DIFF STAT 11/10/2024 9:3 9 AM CDT XR CHEST 1 VIEW PORTABLE JOHANNE 11/10/2024 9:24 AM CDT GLUCOSE METER Timed 11/10/2024 9:12 AM CDT LAB TRACKING EVENT Routine 11/06/2024 4: 55 PM CDT PATH TISSUE EXAM Routine 11/06/2024 4:55 PM CDT LIPID PANEL Early AM 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 Anatomical Region Laterality Modality HEART, THORAX, CHEST Digital Rad iography 11/11/2024 2:52 PM CDT Narrative 11/11/2024 2:52 PM CDT For Patients: As a result of the Cures Act, medical imaging exams and procedure reports are released immediately into your electronic medical record. You may view this report before your referring provider. If you have questions, please contact your health care provider. INDICATION: Line placement. TECHNIQUE: Chest 1 views. COMPARISON: X-ray chest November 10, 2024 FINDINGS/IMPRESSION: Interval placement of right IJ central venous catheter, tip projecting over cavoatrial junction. Endotracheal and enteric tube are in place. No pneumothorax. Stable cardiomegaly with left basilar atelectasis. No large effusion or overt pulmonary edema. Dictated by Igor Chavez MD @ 11/11/2024 2:52:54 PM (Electronically Signed) Procedure Note Igor Chavez MD - 11/11/2024 For Patients: As a result of the Cures Act, medical imagingexams and procedure reports are released immediately into your electronicmedical record. You may view this report before your referring provider.If you have questions, please contact your health care provider. INDICATION: Line placement. TECHNIQUE: Chest 1 views. COMPARISON: X-ray chest November 10, 2024 FINDINGS/IMPRESSION: Interval placement of right IJ central venous catheter, tip projectingover cavoatrial junction. Endotracheal and enteric tube are in place. Nopneumothorax. Stable cardiomegaly with left basilar atelectasis. No large effusion orovert pulmonary edema. Dictated by Igor Chavez MD @ 11/11/2024 2:52:54 PM (Electronically Signed) us Mylene Fuentes MD GENERAL IMAGING Final Result * (ABNORMAL) GLUCOSE METER (11/11/2024 1:31 PM CDT) Only the most recent of9 resultswithin the time period is included. [facility] Signature GLUCOSE METER 174(H) 65 - 100 mg/dL 11/11/2024 1:36 PM CDT [facility] Blood BLOOD SPECIMEN / Unknown 11/11/2024 1:31 PM CDT 11/11/2024 1:36 PM CDT William Andres MD CHEMISTRY Final Re sult [facility] [address] [place] [id number], [place] * [facility] CATH INFUSION PR10, [facility] ANES US GUIDE FOR VASC ACCESS, [facility] TUBING PR1, [facility] TUBING PR20, [facility] DRSG PR1, [facility] DRSG PR5, [facility] KIT PR5 (11/11/2024 12:16 PM CDT) Narrative Yeison Lo MD - 11/11/2024 12:16 PM CDT Yeison Lo MD 11/11/2024 12:16 PM Arterial Line Patient location during procedure: OR Start time: 11/11/2024 12:00 PM End time: 11/11/2024 12:03 PM Indications: lab sampling and monitoring Staffing Preanesthetic Checklist Completed: patient identified, risks and benefits discussed, consent obtained and timeout performed Arterial Line Patient position: supine. Comment:. Laterality: left Site: radial Ultrasound guidance: live ultrasound, ultrasound permanent image saved and sterile gel and probe cover used in ultrasound-guided central venous catheter insertion. Ultrasound Indication: unable to palpate Needle localization (ultrasound): no pathologic findings, selected vessel patent, anatomically normal, potential access sites evaluated and needle visualized entering selected vessel. Securement/dressing: Biopatch applied, dressing applied. Comment: Vessel Quarrying Manager Additional supplies used to locate vessel: no Needle Catheter size: 20 G. Comment:. Catheter length: 12 cm. Comment: Events: no complications. us Yeison Lo MD ANESTHESIA PX NOTE ORDERABLES Final Result * SCAN CORRESP-IMAGING (11/11/2024 11:52 AM CDT) Anatomical Region Laterality Modality Other Narrative 11/11/2024 11:52 AM CDT Ordered by an unspecified provider. us Other Clinical Staff OTHER Final Resul t * SCAN-CARDIAC STRIP (11/11/2024 8:00 AM CDT) us Scanner OTHER Final Result * (ABNORMAL) LACTATE VENOUS (11/11/2024 7:52 AM CDT) Only the most recent of8 resultswithin the time period is included. Pathologist [facility] LACTATE,VENOUS 2.4(H) 0.5 - 2.0 mmol/L 11/11/2024 8:22 AM CDT [facility] Blood BLOOD SPECIMEN / Unknown Venipuncture / Unknown 11/11/2024 7:52 AM CDT 11/11/2024 7:57 AM CDT us Maurice Briggs MD CHEMISTRY Fin al Result [facility] [address] [place] [address], * (ABNORMAL) CBC W PLT NO DIFF (11/11/2024 5:17 AM CDT) Only the most recent of2 resultswithin the time period is included. [facility] WHITE BLOOD COUNT 6.6 4.5 - 11.0 thou/cu mm 11/11/2024 5:32 AM CDT [facility] RED BLOOD COUNT 4.26(L) 4.30 - 5.90 mil/cu mm 11/11/2024 5:32 AM CDT [facility] HEMOGLOBIN 12.2(L) 13.5 - 17.5 g/dL 11/11/2024 5:32 AM CDT [facility] HEMATOCRIT 38.0 37.0 - 53.0 % 11/11/2024 5:32 AM CDT [facility] MCV 89 80 - 100 fL 11/11/2024 5:32 AM CDT [facility] MCH 28.6 26.0 - 34.0 pg 11/11/2024 5:32 AM CDT [facility] MCHC 32.1 32.0 - 36.0 g/dL 11/11/2024 5:32 AM CDT [facility] RDW 13.4 11.5 - 15.5 % 11/11/2024 5:32 AM CDT [facility] PLATELET COUNT 230 140 - 440 thou/cu mm 11/11/2024 5:32 AM CDT [facility] MPV 10.9 6.5 - 11.0 fL 11/11/2024 5:32 AM CDT [facility] NRBC 0.3 % 11/11/2024 5:32 AM CDT [facility] ABS NRBC 0.0 thou /cu mm 11/11/2024 5:32 AM CDT [facility] Blood BLOOD SPECIMEN / Unknown Venipuncture / Unknown 11/11/2024 5:17 AM CDT 11/11/2024 5:23 AM CDT us Maurice Briggs MD HEMATOLOGY Fin al Result [facility] [address] [place] [address], [place] * (ABNORMAL) TRIGLYCERIDES propofol (11/11/2024 5:17 AM CDT) TRIGLYCERIDES 310(H) <150 mg/dL 11/11/2024 5:53 AM CDT [facility] PROVIDER ORDERED STATUS RANDOM 11/11/2024 5:53 AM CDT [facility] Blood BLOOD SPECIMEN / Unknown Venipuncture / Unknown 11/11/2024 5:17 AM CDT 11/11/2024 5:23 AM CDT Génesis Gutierrez DO CHEMISTRY Final Result Performing Organization Address City/[facility]/ZIP Co de Phone Number [facility] [address] [place] [address], [place] * PHOSPHORUS (11/11/2024 5:17 AM CDT) Only the most recent of2 resultswithin the time period is included. PHOSPHORUS 2.6 2.5 - 4.5 mg/dL 11/11/2024 6:17 AM CDT [facility] Blood BLOOD SPECIMEN / Unknown Venipuncture / Unknown 11/11/2024 5:17 AM CDT 11/11/2024 5:23 AM CDT Maurice Briggs MD CHEMISTRY Fin al Result Performing Organization Address City/[facility]/ZIP Co de Phone Number [facility] [address] [place] [address], [place] * MAGNESIUM (11/11/2024 5:17 AM CDT) Only the most recent of2 resultswithin the time period is included. MAGNESIUM 2.3 1.6 - 2.4 mg/dL 11/11/2024 5:53 AM CDT [facility] Blood BLOOD SPECIMEN / Unknown Venipuncture / Unknown 11/11/2024 5:17 AM CDT 11/11/2024 5:23 AM CDT Maurice Briggs MD CHEMISTRY Fin al Result [facility] [address] [place] [id number], * (ABNORMAL) CK TOTAL propofol (11/11/2024 5:17 AM CDT) CK,TOTAL 1,205(H) 39 - 308 IU/L 11/11/2024 5:57 AM CDT [facility] Blood BLOOD SPECIMEN / Unknown Venipuncture / Unknown 11/11/2024 5:17 AM CDT 11/11/2024 5:23 AM CDT Génesis Gutierrez DO CHEMISTRY Final Result Performing Organization Address [facility]/ZIP Co de Phone Number [facility] [address] [place] [address], [place] * (ABNORMAL) BASIC METABOLIC PANEL (11/11/2024 5:17 AM CDT) Only the most recent of2 resultswithin the time period is included. SODIUM 135(L) 136 - 145 mmol/L 11/11/2024 5:53 AM CDT [facility] POTASSIUM 3.3(L) 3.5 - 5.1 mmol/L 11/11/2024 5:53 AM CDT [facility] CHLORIDE 97(L) 98 - 107 mmol/L 11/11/2024 5:53 AM CDT [facility] CO2,TOTAL 22 22 - 29 mmol/L 11/11/2024 5:53 AM CDT [facility] ANION GAP 16 5 - 18 11/11/2024 5:53 AM CDT [facility] GLUCOSE 189(H) 70 - 99 mg/dL 11/11/2024 5:53 AM CDT [facility] CALCIUM 8.0(L) 8.8 - 10.4 mg/dL 11/11/2024 5:53 AM CDT [facility] Comment: Reference ranges for this test were updated on 03/29/2024 to reflect our healthy population more accurately. Reference range changes are not retroactively applied to results, but previous results using the same methodology can be interpreted in the context of the new reference range. BUN 37(H) 8 - 23 mg/dL 11/11/2024 5:53 AM CDT [facility] CREATININE 1.46(H) 0.70 - 1.20 mg/dL 11/11/2024 5:53 AM CDT [facility] BUN/CREAT RATIO 25(H) 10 - 20 5:53 AM CDT [facility] eGFR 52(L) >90 mL/min/1. 73m2 11/11/2024 5:53 AM CDT [facility] Comment:As of 2021, eG FR is calculated by the CKD-EPI creatinine equation without race adjustment. eGFR can be influenced by muscle mass, exercise, and diet. The reported eGFR is an estimation only and is only applicable if the renal function is stable. Blood BLOOD SPECIMEN / Unknown Venipuncture / Unknown 11/11/2024 5:17 AM CDT 11/11/2024 5:23 AM CDT Maurice Briggs MD CHEMISTRY Fin al Result [facility] [address] [place] [address], * SCAN-CARDIAC STRIP (11/11/2024 12:00 AM CDT) us Scanner OTHER Final Result * (ABNORMAL) HEMOGLOBIN (11/10/2024 6:16 PM CDT) HEMOGLOBIN 13.0(L) 13.5 - 17.5 g/dL 11/10/2024 6:53 PM CDT [facility] MCV 90 80 - 100 fL 11/10/2024 6:53 PM CDT [facility] Blood BLOOD SPECIMEN / Unknown Venipuncture / Unknown 11/10/2024 6:16 PM CDT 11/10/2024 6:46 PM CDT us Bj Macedo MD HEMATOLOGY Final Result [facility] [address] [place] [address], * (ABNORMAL) BLOOD GAS,VENOUS (11/10/2024 1:21 PM CDT) Only the most recent of2 resultswithin the time period is included. PH, VENOUS 7.38 7.32 - 7.43 11/10/2024 1:52 PM CDT [facility] PCO2, VENOUS 42 41 - 51 mmHg 11/10/2024 1:52 PM CDT [facility] PO2, VENOUS 35 35 - 40 mmHg 11/10/2024 1:52 PM CDT [facility] HCO3,VENOUS 25 22 - 29 mmol/L 11/10/2024 1:52 PM CDT [facility] BASE EXCESS, VENOUS, POCT -0.2 -2.0 - 3.0 11/10/2024 1:52 PM CDT [facility] O2 SATURATION, VENOUS 53(L) 70 - 75 % 11/10/2024 1:52 PM CDT [facility] INSPIRED O2 35 11/10/2024 1:52 PM CDT [facility] Comment:Unit of Measure: Lit ers (L) if <=20; Percent (%) if >20 PATIENT TEMPERATURE 37.7 Degrees C 11/10/2024 1:52 PM CDT [facility] Blood VENOUS BLOOD SPECIMEN / Unknown Non-Lab Venipuncture / Unknown 11/10/2024 1:21 PM CDT 11/10/2024 1:28 PM CDT us Maurice Briggs MD CHEMISTRY Fin al Result [facility] [address] [place] [address], * SCAN-CARDIAC STRIP (11/10/2024 9:49 AM CDT) us Scanner OTHER Final Result * TYPE & SCREEN (11/10/2024 9:39 AM CDT) ABORH A Rh Positive 11/10/2024 10:56 AM CDT [facility]CEN[facility] LAB BLOOD BANK ANTIBODY SCREEN Negative Negative 11/10/2024 10:56 AM CDT [facility] SPECIMEN EXPIRATION DATE/TIME 11/13/24 23:59 11/10/2024 10:56 AM CDT [facility] Blood BLOOD SPECIMEN / Unknown Non-Lab Venipuncture / Unknown 11/10/2024 9:39 AM CDT 11/10/2024 9:47 AM CDT Maurice Briggs MD BLOOD BANK Fin al Result [facility] B[facility] [address] [place] [id number], * PROTIME-INR (11/10/2024 9:39 AM CDT) INR 1.0 <1.3 11/10/2024 10:02 AM CDT [facility]ORATORY PROTIME 11.8 10.6 - 12.4 sec 11/10/2024 10:02 AM CDT [facility] Blood BLOOD SPECIMEN / Unknown Non-Lab Venipuncture / Unknown 11/10/2024 9:39 AM CDT 11/10/2024 9:47 AM CDT Narrative [facility] - 11/10/2024 10:02 AM CDT Therapeutic Range 2.0-3.0 for most anticoagulated patients 2.5-3.5 or 4.0 for high risk patients The INR is only used for patients on stable oral anticoagulant therapy. It makes no significant contribution to the diagnosis or treatment of patients whose Protime is prolonged for other reasons. INR results are increased when heparin levels exceed 1.0 U/mL, which corresponds to an aPTT >125 seconds if the patient is on UFH. Maurice Briggs MD HEMATOLOGY Fin al Result [facility] [address] [place] [address], * (ABNORMAL) HEPATIC FUNCTION PANEL (11/10/2024 9:39 AM CDT) [facility] ALBUMIN 3.1(L) 4.0 - 4.9 g/dL 11/10/2024 10:18 AM CDT [facility] PROTEIN,TOTAL 5.7(L) 6.0 - 8.0 g/dL 11/10/2024 10:18 AM CDT [facility] BILIRUBIN,TOTAL 1.7(H) 0.0 - 1.2 mg/dL 11/10/2024 10:18 AM CDT [facility] BILIRUBIN,DIRECT 1.1(H) 0.0 - 0.2 mg/dL 11/10/2024 10:18 AM CDT [facility] BILIRUBIN,INDIRE CT 0.6 0.2 - 0.8 mg/dL 11/10/2024 10:18 AM CDT [facility] ALK PHOSPHATASE 54 40 - 129 IU/L 11/10/2024 10:18 AM CDT [facility] ALT (SGPT) 50 10 - 50 IU/L 11/10/2024 10:18 AM CDT [facility] AST (SGOT) 75(H) 10 - 50 IU/L 11/10/2024 10:18 AM CDT [facility] Blood BLOOD SPECIMEN / Unknown Non-Lab Venipuncture / Unknown 11/10/2024 9:39 AM CDT 11/10/2024 9:47 AM CDT Maurice Briggs MD CHEMISTRY Fin al Result [facility] [address] [place] [id number], [place] * LAB TRACKING EVENT (11/06/2024 4:55 PM CDT) Other (Other) Client Collect / Unknown 11/06/2024 4:55 PM CDT 11/07/2024 1:19 PM CDT us Everardo Lane MD LAB BILL ONLY Final Resu lt Performing Organization Address City/[facility]/ZIP Co de Phone Number [facility] [address] [place] [id number], [place] * PATH TISSUE EXAM (11/06/2024 4:55 PM CDT) Case Report Pathology Report Case: [id number] Authorizing Provider: Everardo Lane MD Collected: 11/06/2024 1655 Ordering Location: [facility] Received: 11/07/2024 1429 Pathologist: Alvarado Lund MD Specimen: Colon, Partial, Right colon & omental segment. 11/08/2024 1:05 PM CDT [facility] Final Diagnosis A) RIGHT COLON, TERMINAL ILEUM, APPENDIX, RIGHT HEMICOLECTOMY: 1. Acute appendicitis and periappendicitis, with dilated appendiceal orifice 2. Right colon and ileum show no diagnostic abnormalities 3. Multiple (2) benign lymph nodes identified 4. Negative for neoplasm 11/08/2024 1:05 PM CDT [facility] EN[facility]AL LABORATORY at 1305 CDT Comment Seen with Dr[address] Mata. 11/08/2024 1:05 PM CDT [facility] Clinical Information Abdominal pain. Right hemicolectomy. 11/08/2024 1:05 PM CDT [facility]AL LAB[facility]ORY Gross Description A) Received in formalin, labeled with the patient's name and right colon and omental segment, is a right hemicolectomy specimen consisting of a portion of terminal ileum (6 cm in length by 2.2 cm in diameter), cecum and ascending colon (10 cm in length by 4-5 cm in diameter), and appendix (4 cm in length by 0.7 cm in diameter). Also received are multiple fragments of lobulated adipose tissue measuring 15 x 10 x 2.8 cm in aggregate. The serosa of the colon contains diffuse hemorrhagic fibrous adhesions. There are focal hemorrhagic fibrous adhesions on the serosa of the terminal ileum. The serosa of the appendix is smooth and hemorrhagic. The retroperitoneal margin is inked black. The specimen is opened revealing bulging mucosa and the appendiceal orifice measuring 2 x 1.8 cm. Sectioning reveals a dilated appendiceal orifice (1.8 x 1.8 cm) containing soft hancock/brown fecal material, with flattened hemorrhagic mucosa. No masses are grossly appreciated. The mucosa of the colon and terminal ileum are grossly unremarkable. The omentum is sectioned and is grossly unremarkable. The appendix is sectioned revealing hemorrhagic mucosa in the distal aspect; no masses are grossly appreciated. Xm1 Tank Driver sections are submitted: 1. Tissue subjacent to proximal and distal stapled resection margins, en face, patient support representative 2. Dilated appendiceal orifice 3. Appendix 4. Terminal ileum and colon 5. Omentum 6. Two probable mesenteric lymph nodes Time and date in formalin: Time not indicated on 11/06/2024 RAL 11/07/2024 11/08/2024 1:05 PM CDT [facility] LABORATORY Microscopic Description The final diagnosis is based on microscopic examination of appropriate sections of all specimens. 11/08/2024 1:05 PM CDT [facility] Additional Information Interpreted at [facility] - [address] [place] [address], [place] [address] 11/08/2024 1:05 PM CDT [facility] LAB[facility] Other (Colon, Partial) 11/06/2024 4:55 PM CDT 11/07/2024 2:[address] us [address] MD PATHOLOGY/CYTOLOGY Final R esult [facility] [address] [place] [address] * (ABNORMAL) LIPID PANEL (07/30/2013 5:20 AM [facility]EL[facility] PLAS[facility] ARC) CHOLESTEROL,TOTA L 152 100 - 199 mg/dL [facility] TRIGLYCERIDES 102 <150 mg/dL [facility] HDL CHOLESTEROL 29(L) >40 mg/dL [facility] CHOL/HDL RATIO 5.24(H) <4.50 [facility] NON-HDL CHOLESTEROL 123 Undefined mg/dL [facility] LDL CHOLESTEROL 103 <131 mg/dL [facility] PATIENT STATUS Fasting [facility] Blood specimen (specimen) BLOOD SPECIMEN / Unknown 07/30/2013 5:20 AM [facility] PLAS[facility] ARC 07/29/2013 10:01 PM [facility] Shayla Colin NP CHEMISTRY Final R esult [facility] LABORATORY [place]NAL ZIP [address] [place] [address] from Last 3 Months or Most Recently Relevant to Health Maintenance Additional Health Concerns Active Problems Noted Date Diagnosed Date Autogenerated Problem 11/10/[address] [place] [address] [place] [address] MEDICARE PART A HB ONLY WORKERS COMP * Guarantor: MAURICIO VASQUEZ LEXISNEXISZZZ Account Type Relation to Patient Date of Phone Billing Address Occ Health/Robb DO [place] [address] Advance Directives * Full Code (Latest Code Status on File) Date Activated Date Inactivated Comments 11/11/2024 9:34 AM Question Answer Comments Code Status Discussion: Reviewed Preferences * Full Code Date Activated Date Inactivated Comments 11/10/2024 9:08 AM 11/11/2024 9:34 AM Question Answer Comments Code Status Discussion: Unable to Assess Preferences, Provider to review later * Full Code Date Activated Date Inactivated Comments 07/29/2013 1:21 PM 07/31/2013 1:06 PM Care Teams Steam Shovel Operating Engineer Relationship Specialty Start Date End Date Pcp, No . PCP - General 10/21/07
--- OUTSIDE RECORDS SUMMARY | 2024-11-11 15:53 | XMS_ITS | Clinical Summary ---
Author Organization [facility] Address [address] [place] [address] Care Team Providers Care Framing Mill Supervisor Name Role Phone Vasyl Cai MD Primary Care Provider [phone] Source Comments You are receiving this document as you are listed as the primary care provider,follow-up provider, or the patient has been referred to you for consultation.This is in compliance with the Medicare and[facility] Hospitalcaid EHR Incentive Program,which states Providers who transition their patient to another setting of careor provider of care or refers their patient to another provider of care shouldprovide summary care record for each transition of care or referral. [facility] Active Allergy Reactions Criticality Noted Date [...] Type Department Care Team Description 10/01/2024 Refill [place] [address] Endocrinology [facility] [place] [address] Palma Toth MBBS Refill (metoprolol succinate (TOPROL [...] Info) Description 01/17/2025 9:15 AM CDT Appointment [facility] [address] [place] [address] Palma Toth MBBS [address] [place], [place] [address] Health Maintenance Due Date Last Done Comments [...] 2 <30 mg/g 08/02/2024 5:03 PM CDT [facility] Albumin, Urine, Random 1.7 mg/L 08/02/2024 5:03 PM CDT [facility] Creatinine, Urine, Random 69 >20 mg/dL mg/dL 08/02/2024 5:03 PM T [facility] Urine Non-blood Collection / Unknown 08/02/2024 3:49 PM CDT 08/02/2024 3:49 PM CDT Palma Sauer Janey N[facility]_1 Final Res ult Performing Organization Address City/[facility]/ZIP Co de Phone Number [facility] [address] [place] [address] * (ABNORMAL) Lipid Panel and Direct LDL(If Needed) (08/02/2024 3:35 PM CDT) Cholesterol 106 0 - 199 mg/dL 08/02/2024 7:58 PM T [facility] Triglyceride 218(H) <=149 mg/dL 08/02/2024 7:58 PM [facility] HDL Cholesterol 34(L) >=40 mg/dL 7:58 PM [facility] LDL, Calculated 28 <130 mg/dL 7:58 PM [facility] Non HDL Chol, Calculated 72 <=159 mg/dL 08/02/2024 7:58 PM [facility] Cholesterol/HDL Ratio 3.1 <=5.0 08/02/2024 7:58 PM [facility] Hours Fasting 2.0 8 - 12 Hours 08/02/2024 7:58 PM [facility] Blood Venipuncture / Unknown 08/02/2024 3:35 PM CDT 08/02/2024 3:50 PM CDT Palma Sauer Janey [facility]_1 Final Res ult Performing Organization Address City/[facility]/ZIP Co de Phone Number [facility] [address] [place] [address] * (ABNORMAL) Basic Metabolic Panel (08/02/2024 3:35 PM CDT) Sodium 140 136 - 145 mmol/L 08/02/2024 7:58 PM [facility] Potassium 3.9 3.5 - 5.1 mmol/L 08/02/2024 7:58 PM [facility] Chloride 108 98 - 109 mmol/L 08/02/2024 7:58 PM [facility] CO2 21 20 - 29 mmol/L 08/02/2024 7:58 PM [facility] Anion Gap 11 6 - 16 mmol/L 08/02/2024 7:58 PM [facility] Calcium 9.2 8.4 - 10.4 mg/dL 08/02/2024 7:58 PM [facility] BUN 18 7 - 26 mg/dL 08/02/2024 7:58 PM [facility] Creatinine 1.06 0.73 - 1.18 mg/dL 08/02/2024 7:58 PM [facility] Glucose 179(H) 70 - 100 mg/dL 08/02/2024 7:58 PM [facility] Comment:The given reference range is for the fasting state. Non-fasting reference range for glucose is 70 - 180 mg/dL. GFR, Estimated >60 >60 mL/min/1.7 3m2 08/02/2024 7:58 PM [facility] Hours Fasting 2.0 8 - 12 Hours 08/02/2024 7:58 PM [facility] Blood Venipuncture / Unknown 08/02/2024 3:35 PM CDT 08/02/2024 3:50 PM CDT us Palma NELSON [facility]_1 Final Res ult [facility] [address] [place] [address], [facility] * (ABNORMAL) Hgb A1C (08/02/2024 3:35 PM CDT) Hemoglobin A1C (Rapid) 7.9(H) <=5.6 % 08/02/2024 4:11 PM T [facility] Estimated Average Glucose (Calc) 180 < 117 mg/dL 08/02/2024 4:11 PM [facility] Comment:Estimated average gl ucose (eAG) converts A1c into glucose units (mg/dL) and estimates average glucose over the past approximately 3 months. The eAG reference interval (<117 mg/dL) corresponds to an A1c of <5.7%. Blood Venipuncture / Unknown 08/02/2024 3:35 PM CDT 08/02/2024 3:50 PM CDT Narrative [facility] - 08/02/2024 4:11 PM CDT For [...] us Palma PIERSON [facility]_1 Final Res ult [facility] [address] [place] [address], [facility] from Last 3 Months or Most Recently Relevant to Health Maintenance Insurance MEDICARE PART A [facility] [place] [facility] [place] COMP Care Teams Framing Mill Supervisor Relationship Specialty Start Date End Date Vasyl Cai MD [address] [place], [place] [id number] PCP - General Family Practice 04/13/18
--- OUTSIDE RECORDS SUMMARY | 2024-11-11 15:53 | XMS_ITS | Encounter Summary ---
Author Organization [facility] Address [facility] [place] [address] Care Team Providers Care Filter Tender Name Role Phone Vasyl Cai Primary Care Provider [phone] Homar Stevens MD Unavailable [phone] Homar Stevens MD Unavailable [phone] Reason for Visit * Reason Onset Date Comments Refill Request 10/03/2024 losartan Encounter Details Date Type Department Care Team (Late st Contact Info) Description 10/03/2024 [facility] [address] [place] [address] [address] [place] [address] Homar Stevens MD [address] [facility] [address] [place], [place] [address] Refill Request (losartan) Social History Tobacco Use [...] Kenney, RN - 10/03/2024 10:52 AM CDT [facility] Cardiology Refill Guideline reviewed. Medication meets criteria for refill. documented in this encounter Plan of Treatment Not on file documented as of this encounter Visit Diagnoses Diagnosis Coronary artery disease involving [place] coronary artery of [place] heart without angina pectoris Benign essential hypertension Essential hypertension, benign documented in this encounter Care Teams Filter Tender Relationship Specialty Start [place] [address] PCP - General Family Practice 07/31/14 Homar Stevens MD [address] [place] [address] Cardiovascular Disease 06/17/21 Homar Stevens MD [address] [place] [id number] Assigned Heart and Vascular Provider 10/15/23 documented as of this encounter
--- OUTSIDE RECORDS SUMMARY | 2024-11-11 15:53 | XMS_ITS | Clinical Summary ---
Author Organization [facility] Address [address] [place] [address] Care Team Providers Care Log Operations Coordinator Name Role Phone Vasyl Cai Primary Care Provider [phone] Homar Stevens MD Unavailable Homar Stevens MD [...] MG sublingual tabletIndication s:Coronary artery disease involving [place] coronary artery of [place] heart without angina pectoris,Benign essential hypertension Place 1 tablet (0.4 mg) under the tongue every 5 minutes as needed for chest pain 15 tablet 3 09/15/19 24 Active losartan (COZAAR) 25 MG tabletIndication s:Coronary artery disease involving [place] coronary artery of [place] heart without angina pectoris,Benign essential hypertension Take [...] Type Department Care Team Description 10/03/[address] [facility] [address] [facility] [address] [place] [address] Homar Stevens MD Refill Request (losartan) 10/03/2024 Telephone [facility] [address] [place] [address] [address] [place] [address] Pooja Kenney, RN from Last [...] Comments LIPID PROFILE Routine 07/09/2021 7:32 AM CERTIFIED BENCH JEWELER TECHNICIAN Coronary artery disease involving [place] coronary artery of [place] heart without angina pectoris HEMOGLOBIN A1C Routine 02/05/2017 3:05 PM CDT BASIC METABOLIC PANEL Routine 11/04/2016 4:40 PM CDT from Last 3 Months or Most Recently Relevant to Health Maintenance Results * (ABNORMAL) Lipid Profile (07/09/2021 7:32 AM CERTIFIED BENCH JEWELER TECHNICIAN) Cholesterol 96 <200 mg/dL 07/09/2021 8:38 AM CERTIFIED BENCH JEWELER TECHNICIAN [facility] Triglycerides 129 <150 mg/dL 07/09/2021 8:38 AM CERTIFIED BENCH JEWELER TECHNICIAN [facility] Direct Measure HDL 37(L) >=40 mg/dL 2021 8:38 AM CERTIFIED BENCH JEWELER TECHNICIAN [facility] LDL Cholesterol Calculated 33 <=100 mg/dL 07/09/2021 8:38 AM CERTIFIED BENCH JEWELER TECHNICIAN [facility] Non HDL Cholesterol 59 <130 mg/dL 07/09/2021 8:38 AM CERTIFIED BENCH JEWELER TECHNICIAN [facility] Patient Fasting > 8hrs? Yes 07/09/2021 8:38 AM CERTIFIED BENCH JEWELER TECHNICIAN [facility] Blood STRUCTURE OF LEFT UPPER LIMB / Unknown Venipuncture / Unknown 07/09/2021 7:32 AM CERTIFIED BENCH JEWELER TECHNICIAN 07/09/2021 7:34 AM CERTIFIED BENCH JEWELER TECHNICIAN Narrative [facility] - 07/09/2021 8:38 AM CERTIFIED BENCH JEWELER TECHNICIAN Cholesterol Desirable: <200 mg/dL Triglycerides Normal: Less [...] BLOOD ORDERABLES Final Res ult [facility] [address] Lab (1st floor, no room number) [place] [address], [facility] [phone] * (ABNORMAL) Hemoglobin A1c (02/05/2017 3:05 PM [...] STATE BC OUT OF STATE Care Teams Log Operations Coordinator Relationship Specialty Start Date End Date Vasyl Cai [address] [address] PCP - General Family Practice 07/31/14 Homar Stevens MD [address] [place] [id number] Cardiovascular Disease 06/17/21 Homar Stevens MD [address] [place] [phone] Assigned Heart and Vascular Provider 10/15/23
--- OUTSIDE RECORDS SUMMARY | 2024-11-11 15:53 | XMS_ITS | Encounter Summary ---
Author Organization [facility] Address [address] [place] [address] Care Team Providers Care Qc Manager Name Role Phone Vasyl Cai MD Primary Care Provider [phone] Reason for Visit * Reason Comments Refill metoprolol succinate (TOPROL XL) 50 MG 24 hour release tablet [Pharmacy Med Name: Metoprolol Succinate ER Oral Tablet Extended Release 24 Hour 50 MG] Encounter Details Date Type Department Care Team (Late st Contact Info) Description 10/01/2024 Refill [facility] [address] Endocrinology [address] [facility] [place] [address] Silvia Toth MBBS [address] [place] [address] Refill (metoprolol succinate (TOPROL XL) [...] [facility] ENDOCRINOLOG[facility]) [employer] Embedded Refills, Reference: [id number], 10/01/2024 5:46:55 AM CDT, Pool: PASCUAL PNREFSTEPHANY ([id number]) documented in this encounter Plan of Treatment Upcoming Encounters Date Type Department Care Team (Late st Contact Info) Description 01/17/2025 9:15 AM CDT Appointment [facility] [address] [place] [address] Silvia Toth, MBBS [address] [place] [address] documented as of this encounter Visit Diagnoses Diagnosis Type 2 diabetes mellitus with diabetic neuropathy, without long-term current use of insulin (HRC) Essential hypertension (HRC) Unspecified essential hypertension Dyslipidemia (high LDL; low HDL) (HRC) Other and unspecified hyperlipidemia Obesity, unspecified obesity severity, unspecified obesity type (HRC) documented in this encounter Care Teams Qc Manager Relationship Specialty Start Date End Date Vasyl Cai MD [address] [place] [address] PCP - General Family Practice 04/13/18 documented as of this encounter
--- OUTSIDE RECORDS SUMMARY | 2024-11-11 15:53 | XMS_ITS | Encounter Summary ---
Author Organization [facility] Address [address] [place] [address] Care Team Providers Care Core Layer Machine Operator Name Role Phone None Primary Care Provider Unavailabl Vasyl Seay Primary Care Provider Tad Esquivel MD Unavailable Homar Stevens MD Unavailable [phone] Homar Stevens MD Unavailable [phone] Homar Stevens MD Unavailable [phone] Encounter Details Date Type Department Care Team (Late st Contact Info) Description 09/15/2013 Office Visit-[facility] [address] [address] Homar Stevens MD [address] [place], [place] [address] [place], [place] [address] Social History Tobacco Use Types Packs/Day Years [...] old Referring Physician: VASYL CAI Referring Clinic: [facility] CURRENT DIAGNOSES 1. - CAD, 414.00 2. [...] with medical therapy and sent urgently to [facility]. On arrival, the patient developed new EKG changes indicating acute inferoposterior lateral wall ST segment elevation NC. He underwent urgent diagnostic coronary angiography by [...] demonstrates a very pleasant, cooperative and friendly [id number] who is overweight. His blood pressure was [...] I have carefully reviewed the reports from [facility]. The results of the patient's angiogram are in the above text. His echo showed an ejection fraction of 55 to 60% with mild left ventricular hypertrophy, but no identifiable regional wall motion abnormalities. 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; Residence - lives alone and lives in [place] year round; Hours Worked - 40 hours [...] on filedocumented in this encounter Care Teams Core Layer Machine Operator Relationship Specialty Start Date End Date None PCP - General 08/03/13 07/30/14 Vasyl Cai [address] [address] PCP - General Family Practice 07/31/14 Tad Esquivel MD [address] [place] [id number] Assigned Heart and Vascular Provider 03/16/20 07/13/21 Homar Stevens MD [address] [place] [id number] MD Cardiovascular Disease 06/17/21 Homar Stevens MD [address] [place] [id number] Assigned Heart and Vascular Provider 07/14/21 08/06/23 Homar Stevens MD [address] [place] [id number] Assigned Heart and Vascular Provider 10/15/23 documented as of this encounter
--- OUTSIDE RECORDS SUMMARY | 2024-11-11 15:53 | XMS_ITS | Encounter Summary ---
Author Organization [facility] Address [address] [place] [address] Care Team Providers Care Young Adult Librarian Name Role Phone aVsyl Cai Primary Care Provider + [phone] Homar Stevens MD Unavailable Homar Stevens MD Unavailable [phone] Encounter Details Date Type Department Care Team (Late st Contact Info) Description 10/03/2024 Telephone [facility] [address] [place] [address] Pooja Kenney, RN Social History [...] on filedocumented in this encounter Care Teams Young Adult Librarian Relationship Specialty Start Date End Date Vasyl Cai [address] [address] PCP - General Family Practice 07/31/14 Homar Stevens MD [address] [place] [address] Cardiovascular Disease 06/17/21 Homar Stevens MD [address] [place] [id number] Assigned Heart and Vascular Provider 10/15/23 documented as of this encounter
--- OUTSIDE RECORDS SUMMARY | 2024-11-12 00:10 | XMS_ITS | Clinical Summary ---
Author Organization [facility] Address [address] [place] [address] Care Team Providers Care Punch Machine Operator Name Role Phone Vasyl Cai MD Primary Care Provider [phone] Source Comments You are receiving this document as you are listed as the primary care provider,follow-up provider, or the patient has been referred to you for consultation.This is in compliance with the Medicare and[facility] EHR Incentive Program,which states Providers who transition their patient to another setting of careor provider of care or refers their patient to another provider of care shouldprovide summary care record for each transition of care or referral. [facility] Allergies Active Allergy Reactions Criticality Noted Date [...] Type Department Care Team Description 10/01/2024 Refill [place] [address] Endocrinology [facility] [place] [address] Palma Toth MBBS Refill (metoprolol succinate (TOPROL [...] Info) Description 01/17/2025 9:15 AM CDT Appointment [facility] [address] [place] [address] Palma Toth MBBS [address] [place], [place] [address] Health Maintenance Due Date Last Done Comments [...] 2 <30 mg/g 08/02/2024 5:03 PM CDT [facility] Albumin, Urine, Random 1.7 mg/L 08/02/2024 5:03 PM CDT [facility] Creatinine, Urine, Random 69 >20 mg/dL mg/dL 08/02/2024 5:03 PM T [facility] Urine Non-blood Collection / Unknown 08/02/2024 3:49 PM CDT 08/02/2024 3:49 PM CDT Palma Sauer Janey [facility]_1 Final Res ult Performing Organization Address City/[facility]/ZIP Co de Phone Number [facility] [address] [place] [address] * (ABNORMAL) Lipid Panel and Direct LDL(If Needed) (08/02/2024 3:35 PM CDT) Cholesterol 106 0 - 199 mg/dL 08/02/2024 7:58 PM T [facility] Triglyceride 218(H) <=149 mg/dL 08/02/2024 7:58 PM [facility] HDL Cholesterol 34(L) >=40 mg/dL 7:58 PM [facility] LDL, Calculated 28 <130 mg/dL 7:58 PM [facility] Non HDL Chol, Calculated 72 <=159 mg/dL 08/02/2024 7:58 PM [facility] Cholesterol/HDL Ratio 3.1 <=5.0 08/02/2024 7:58 PM [facility] Hours Fasting 2.0 8 - 12 Hours 08/02/2024 7:58 PM [facility] Blood Venipuncture / Unknown 08/02/2024 3:35 PM CDT 08/02/2024 3:50 PM CDT Palma Sauer Janey [facility] Final Res ult Performing Organization Address City/[facility]/ZIP Co de Phone Number [facility] [address] [place] [address] * (ABNORMAL) Basic Metabolic Panel (08/02/2024 3:35 PM CDT) Sodium 140 136 - 145 mmol/L 08/02/2024 7:58 PM [facility] Potassium 3.9 3.5 - 5.1 mmol/L 08/02/2024 7:58 PM [facility] Chloride 108 98 - 109 mmol/L 08/02/2024 7:58 PM [facility] CO2 21 20 - 29 mmol/L 08/02/2024 7:58 PM [facility] Anion Gap 11 6 - 16 mmol/L 08/02/2024 7:58 PM [facility] Calcium 9.2 8.4 - 10.4 mg/dL 08/02/2024 7:58 PM [facility] BUN 18 7 - 26 mg/dL 08/02/2024 7:58 PM [facility] Creatinine 1.06 0.73 - 1.18 mg/dL 08/02/2024 7:58 PM [facility] Glucose 179(H) 70 - 100 mg/dL 08/02/2024 7:58 PM [facility] Comment:The given reference range is for the fasting state. Non-fasting reference range for glucose is 70 - 180 mg/dL. GFR, Estimated >60 >60 mL/min/1.7 3m2 08/02/2024 7:58 PM [facility] Hours Fasting 2.0 8 - 12 Hours 08/02/2024 7:58 PM [facility] Blood Venipuncture / Unknown 08/02/2024 3:35 PM CDT 08/02/2024 3:50 PM CDT us [facility]1 Final Res ult [facility] [address] [place] [address], [facility] * (ABNORMAL) Hgb A1C (08/02/2024 3:35 PM CDT) Hemoglobin A1C (Rapid) 7.9(H) <=5.6 % 08/02/2024 4:11 PM T [facility] Estimated Average Glucose (Calc) 180 < 117 mg/dL 08/02/2024 4:11 PM [facility] Comment:Estimated average gl ucose (eAG) converts A1c into glucose units (mg/dL) and estimates average glucose over the past approximately 3 months. The eAG reference interval (<117 mg/dL) corresponds to an A1c of <5.7%. Blood Venipuncture / Unknown 08/02/2024 3:35 PM CDT 08/02/2024 3:50 PM CDT Narrative [facility] - 08/02/2024 4:11 PM CDT For [...] us Palma [facility]_1 Final Res ult [facility] [address] [place] [address], [facility] from Last 3 Months or Most Recently Relevant to Health Maintenance Insurance MEDICARE PART A [facility] [place] [facility] INS WORK COMP Care Teams Punch Machine Operator Relationship Specialty Start Date End Date Vasyl Cai MD [address] [place], [place] [id number] PCP - General Family Practice 04/13/18
--- OUTSIDE RECORDS SUMMARY | 2024-11-12 00:10 | XMS_ITS | Encounter Summary ---
Author Organization [facility] Address [address] [place] [address] Care Team Providers Care Child Health Associate Name Role Phone Vasyl Cai MD Primary Care Provider [phone] Reason for Visit * Reason Comments Refill metoprolol succinate (TOPROL XL) 50 MG 24 hour release tablet [Pharmacy Med Name: Metoprolol Succinate ER Oral Tablet Extended Release 24 Hour 50 MG] Encounter Details Date Type Department Care Team (Late st Contact Info) Description 10/01/2024 Refill [facility] [address] [facility] [place] [address] Silvia Toth MBBS [address] [place] [address] Refill (metoprolol succinate (TOPROL XL) [...] [facility]) [employer] Embedded Refills, Reference: [id number], 10/01/2024 5:46:55 AM CDT, Pool: PASCUAL PNREFSTEPHANY ([id number]) documented in this encounter Plan of Treatment Upcoming Encounters Date Type Department Care Team (Late st Contact Info) Description 01/17/2025 9:15 AM CDT Appointment [facility] [address] [place] [phone] Silvia Toth, MBBS [address] [place] [address] documented as of this encounter Visit Diagnoses Diagnosis Type 2 diabetes mellitus with diabetic neuropathy, without long-term current use of insulin (HRC) Essential hypertension (HRC) Unspecified essential hypertension Dyslipidemia (high LDL; low HDL) (HRC) Other and unspecified hyperlipidemia Obesity, unspecified obesity severity, unspecified obesity type (HRC) documented in this encounter Care Teams Child Health Associate Relationship Specialty Start Date End Date Vasyl Cai MD [address] [place] [place] [address] PCP - General Family Practice 04/13/18 documented as of this encounter
== END 2024-11-10 07:20 | disposition home or self-care (01) ==
PROVIDERS: Visit Provider Family Medicine
DX: D49.0 Neoplasm of unspecified behavior of digestive system (principal); N17.9 Acute kidney failure, unspecified
CPT/HCPCS: A0425; A0434